=== PATIENT | female | born 1935 | race Caucasian/White ===

== ENCOUNTER 2017-07-04 09:50 | Inpatient (IN) ==
[2017-07-04] MEDS ORDERED: Promethazine/Codeine Oral Sryup 5 ML UDC PO ONE (10:08)
--- NOTE | 2017-07-04 10:11 | Emergency Department Note ---
Disposition Clinical Impression: Pneumonia Qualifiers: Pneumonia type: due to unspecified organism Laterality: bilateral Lung location : unspecified part of lung Qualified Code(s): J18.9 - Pneumonia, unspecified organism Disposition: Admitted As Inpatient Condition: Fair Forms: ED Satisfaction Letter URI/Sore Throat HPI - General Chief Complaint: ED Upper Respiratory Infection Stated Complaint: Cough- productive x 3 days Time Seen by Provider: 07/04/17 09:53 Source: patient, family, EMS Mode of arrival: EMS Limitations: no limitations Nursing Notes Reviewed: Yes Vital Signs Reviewed: Yes - History of Present Illness HPI Narrative: Patient presents to the ED via EMS with complaint of cough. States she has had a cough for over a week or more that has now become productive with yellow and brown sputum. She has also had a sore throat and some congestion. Denies any sneezing. Reports she will have shortness of breath during and after her coughing spells. No chest pain. No fever or chills. No abdominal pain. States she was nauseous at one point but never vomited and is not currently nauseous. No diarrhea or constipation. No urinary symptoms. No leg swelling. No orthopnea or PND. No recent travel or sick contacts. Daughter states she saw her PCP, Dr. White about a week and half ago and was prescribed a Z-Homero. She saw Dr. White again yesterday and was prescribed dextromethorphan cough syrup and a prednisone taper. EMS reports patient was 91-92% on room air and improved to the high 90s after 1 albuterol treatment en route. Patient has never been a smoker and has no chronic respiratory problems. She does have a history of hypertension, CAD, GERD and CLL. Daughter states she has had pneumonia several times in the past. - Related Data Home Medications Medication Instructions Recorded Confirmed Aspirin 81 mg PO DAILY 09/24/15 07/04/17 FLUoxetine HCl [Prozac] 40 mg PO DAILY 09/24/15 07/04/17 Furosemide [Lasix] 40 mg PO BID 09/24/15 07/04/17 Lisinopril [Zestril] 2.5 mg PO DAILY 09/24/15 07/04/17 Metoprolol [Lopressor] 12.5 mg PO BID 09/24/15 07/04/17 Nitroglycerin [Nitrostat] 0.4 mg SL PRN PRN 09/24/15 07/04/17 Omeprazole [PriLOSEC] 20 mg PO DAILY 09/24/15 07/04/17 Pravastatin Sodium [Pravachol] 20 mg PO DAILY 09/24/15 07/04/17 Ferrous Sulfate [Iron] 325 mg PO DAILY 01/23/16 07/04/17 GuaiFENesin/Dextromethorphan 5 - 10 ml PO Q4-6H PRN 07/04/17 07/04/17 [Robafen Dm Cgh-Chest Kobe Syrp] Tramadol HCl [Ultram] 50 mg PO HS 07/04/17 07/04/17 predniSONE [PredniSONE] 20 mg PO DAILY 07/04/17 07/04/17 Allergies Allergy/AdvReac Type Severity Reaction Status Date / Time Penicillins [PCN] Allergy Hives Verified 09/24/15 16:26 Sulfa (Sulfonamide Allergy Hives Verified 09/24/15 16:26 Antibiotics) Constitutional: Denies: fever, chills, weakness, weight change Eyes: Denies: eye pain, eye discharge, vision change ENT ED: Reports: congestion. Denies: ear pain, throat pain, dental pain, hearing loss, epistaxis, dysphagia Cardiovascular: Denies: chest pain, palpitations, dyspnea on exertion, edema, syncope Respiratory: Reports: cough, dyspnea, sputum production. Denies: wheezes, hemoptysis, stridor Gastrointestinal: Denies: abdominal pain, nausea, vomiting, diarrhea, constipation, hematemesis, melena, hematochezia Genitourinary: Denies: dysuria, frequency, hematuria, discharge Musculoskeletal: Denies: back pain, neck pain, arthralgia, myalgia Integumentary: Denies: rash, abrasion, lesions Neurological: Denies: headache, weakness, numbness, paresthesias, confusion, abnormal gait, vertigo Psychiatric: Denies: anxiety, depression, suicidal thoughts, homicidal thoughts , auditory hallucinations, visual hallucinations Endocrine: Denies: fatigue Hematological/Lymphatic: Denies: easy bleeding, easy bruising Allergic/Immunologic: Denies: facial swelling, urticaria URI PMH - Past Medical History Medical history: Reports: CHF, coronary artery disease, GERD, hyperlipidemia, hypertension, malignancy, osteoporosis, TIA, other Surgical history: Reports: coronary bypass (CABG) Psychiatric history: Reports: anxiety, depression [employer]GER [employer]DER history: Reports: no PASSENGER TI[employer] BU[employer]DER history - Social History Smoking Status: Never smoker Alcohol use: Reports: none Drug use: Reports: none Physical Exam - General Limitations: no limitations General appearance: alert, in no apparent distress, anxious (during coughing spells) - Head Head exam: atraumatic, normocephalic, normal inspection - Eye Eye exam: Present: normal appearance, PERRL, EOMI - ENT ENT exam: normal exam, normal oropharynx, mucous membranes moist - Neck Neck exam: Present: normal inspection, full ROM, trachea midline. Absent: lymphadenopathy - Chest Chest inspection: Present: normal inspection, symmetric chest wall rise - Respiratory Respiratory exam: Present: normal lung sounds bilaterally. Absent: respiratory distress, wheezes, stridor - Cardiovascular Cardiovascular exam: Present: regular rate, normal rhythm, normal heart sounds - Abdominal Exam Abdominal exam: Present: soft, Non-Tender, normal bowel sounds. Absent: tenderness, distention, guarding, rebound, rigidity - Extremities Exam Extremities exam: Present: normal inspection, full ROM. Absent: tenderness, pedal edema - Back Exam Back exam: Present: normal inspection, full ROM. Absent: tenderness, CVA tenderness (R), CVA tenderness (L) - Neurological Exam Neurological exam: Present: alert, oriented X3 - Psychiatric Psychiatric exam: Present: normal affect, normal mood - Skin Skin exam: Present: warm, dry, intact, normal color Course Course Narrative: Patient presents to the ED with 1-2 weeks of cough that is now productive with bronchospasm and shortness of breath during coughing spells. She is afebrile and hemodynamically stable on arrival with room air oxygen saturations in the mid 90s. She is having persistent coughing spells since arrival with some resultant anxiety. Lungs are clear to auscultation however. Will perform chest x-ray to rule out pneumonia versus bronchitis. Will give a dose of cough syrup as well as check routine labs to look for any signs of infection or other abnormalities. - Reevaluation(s) Reevaluation #1: Chest x-ray shows perihilar opacities concerning for pneumonia as well as a small effusion. Laboratory studies show a significant increase in her leukocytosis from her elevated baseline that is due to her CLL. She also has increase in both her lymphocytes and neutrophils. Potassium is slightly low at 3.2, likely due to her use of Lasix. We will give oral supplementation. Remaining electrolytes are within normal limits. Troponin is normal. BNP is elevated but she has no signs of overt pulmonary edema. Given the developing pneumonia despite recent outpatient antibiotics and steroids with worsening leukocytosis and bronchospasm patient would benefit from inpatient treatment for her pneumonia. Discussed all test results with patient and her daughter and they are in agreement. I spoke to patient's PCP, Dr. White who has agreed to admit the patient. Will start IV antibiotics after obtaining blood cultures and continue with steroids and nebulizer treatments. We will also check a lactic acid although I have low suspicion for sepsis given lack of fever, hypotension or tachycardia. Vital Signs Temperature 97.4 F L 07/04/17 10:02 Pulse Rate 72 07/04/17 10:02 Respiratory Rate 16 07/04/17 10:02 Blood Pressure 112/67 07/04/17 10:02 O2 Sat by Pulse Oximetry 96 07/04/17 10:02 Temperature 97.4 F L 07/04/17 10:02 Pulse Rate 72 07/04/17 10:02 Respiratory Rate 16 07/04/17 10:02 Blood Pressure 112/67 07/04/17 10:02 O2 Sat by Pulse Oximetry 96 07/04/17 10:02 Oxygen Delivery Oxygen Delivery Room Air Upper Respiratory Infection - Differential Diagnosis Differential Diagnosis: Likely: upper respiratory infection, other viral infection, bronchitis, pneumonia - Medical Records Medical records reviewed: Yes I reviewed the patient's medical records. - Lab Data Lab results reviewed: Yes I reviewed the patient's lab results. Result diagrams: 07/04/17 10:13 07/04/17 10:13 Lab Results 07/04/17 07/04/17 07/04/17 Range/Units 10:13 10:13 10:13 WBC 58.0 H* (4.3-11.1) K/mcL RBC 3.49 L (3.82-4.97) M/mcL Hgb 10.2 L (11.5-15.4) g/dL Hct 31.6 L (35.3-44.9) % MCV 90.5 (83.0-100.0) fL MCH 29.2 (28.0-33.3) pg MCHC 32.3 (31.6-35.5) g/dL RDW 14.1 (11.5-14.5) % Plt Count 259 (140-400) K/mcL MPV 8.0 L (9.4-12.4) fL Immature Gran % 0.6 (0-4) % Seg Neutrophils % 16.1 % Lymphocytes % 79.5 % Monocytes % 3.7 % Eosinophils % 0.1 % Basophils % 0.0 % Neutrophils # 9.3 H (1.6-8.9) K/mcL Lymphocytes # 46.1 H (0.6-4.6) K/mcL Monocytes # 2.2 H (0.0-1.3) K/mcL Eosinophils # 0.1 (0.0-0.6) K/mcL Basophils # 0.0 (0.0-0.2) K/mcL Reactive Lymphocytes Present A (Not Present) Sodium 140 (136-145) mEq/L Potassium 3.2 L (3.5-4.5) mEq/L Chloride 105 (98-109) mEq/L Carbon Dioxide 24 (19-29) mEq/L BUN 24 H (7-20) mg/dL Creatinine 0.98 (0.57-1.11) mg/dL Est GFR ( Amer) > 60 (> 60) Est GFR (Non-Af Amer) 54 L (> 60) BUN/Creatinine Ratio 24 (6-26) Glucose 102 H (70-99) mg/dL Calculated Osmolality 294 (280-300) Calcium 9.4 (8.6-10.8) mg/dL Troponin I 0.00 (0-0.03) ng/mL B-Natriuretic Peptide (0-100) pg/mL 07/04/17 Range/Units 10:13 WBC (4.3-11.1) K/mcL RBC (3.82-4.97) M/mcL Hgb (11.5-15.4) g/dL Hct (35.3-44.9) % MCV (83.0-100.0) fL MCH (28.0-33.3) pg MCHC (31.6-35.5) g/dL RDW (11.5-14.5) % Plt Count (140-400) K/mcL MPV (9.4-12.4) fL Immature Gran % (0-4) % Seg Neutrophils % % Lymphocytes % % Monocytes % % Eosinophils % % Basophils % % Neutrophils # (1.6-8.9) K/mcL Lymphocytes # (0.6-4.6) K/mcL Monocytes # (0.0-1.3) K/mcL Eosinophils # (0.0-0.6) K/mcL Basophils # (0.0-0.2) K/mcL Reactive Lymphocytes (Not Present) Sodium (136-145) mEq/L Potassium (3.5-4.5) mEq/L Chloride (98-109) mEq/L Carbon Dioxide (19-29) mEq/L BUN (7-20) mg/dL Creatinine (0.57-1.11) mg/dL Est GFR ( Amer) (> 60) Est GFR (Non-Af Amer) (> 60) BUN/Creatinine Ratio (6-26) Glucose (70-99) mg/dL Calculated Osmolality (280-300) Calcium (8.6-10.8) mg/dL Troponin I (0-0.03) ng/mL B-Natriuretic Peptide 1001 H (0-100) pg/mL - Radiology Data Radiology results reviewed: Yes I reviewed the patient's radiology results. ITS Impressions Chest X-Ray 07/04/17 10:06 IMPRESSION: Patchy bilateral parahilar airspace disease and suspected small pleural effusion. Primary consideration is pneumonia. Chronic pleural blunting and parenchymal scarring is superimposed. D/ / Sami Cortez MD / Sami Cortez MD Interpreting Provider: Sami Cortez MD - EKG Data EKG attestation: Yes I reviewed and interpreted this EKG. EKG shows normal: sinus rhythm Rate: normal Rhythm: NSR Interpretation: no acute changes
[2017-07-04 10:23] LABS: Eosinophils % 0.1 %; Hematocrit 31.6 % (35.3-44.9); Hemoglobin 10.2 g/dL (11.5-15.4); Immature Granulocytes % 0.6 % (0-4); Lymphocytes # 46.1 K/mcL (0.6-4.6); Lymphocytes % 79.5 %; Mean Corpuscular HGB Conc 32.3 g/dL (31.6-35.5); Mean Corpuscular Hemoglobin 29.2 pg (28.0-33.3); Mean Corpuscular Volume 90.5 fL (83.0-100.0); Monocytes # 2.2 K/mcL (0.0-1.3); Monocytes % 3.7 %; Platelet Count 259 K/mcL (140-400); Red Blood Count 3.49 M/mcL (3.82-4.97); Red Cell Distribution Width 14.1 % (11.5-14.5); Segmented Neutrophils % 16.1 %
[2017-07-04 10:30] LABS: Eosinophils # 0.1 K/mcL (0.0-0.6); Neutrophils # 9.3 K/mcL (1.6-8.9)
[2017-07-04 10:39] LABS: BUN/Creatinine Ratio 24 (6-26); Blood Urea Nitrogen 24 mg/dL (7-20); Calcium 9.4 mg/dL (8.6-10.8); Carbon Dioxide 24 mEq/L (19-29); Chloride 105 mEq/L (98-109); Glucose 102 mg/dL (70-99); Osmolality,Calculated 294 (280-300); Potassium 3.2 mEq/L (3.5-4.5); Sodium 140 mEq/L (136-145); eGFR For African Americans > 60 (> 60); eGFR For Non-African Americans 54 (> 60)
[2017-07-04 10:50] LABS: Reactive Lymphocytes Present (Not Present)
[2017-07-04] MEDS ORDERED: MethylPREDNISolone 40 MG/ML VIAL IVP ONE (11:06)
[2017-07-04] MEDS ORDERED: Levofloxacin 750 MG/150 ML 750 MG/150 ML BAG IVPB ONE (11:06)
[2017-07-04] MEDS ORDERED: Acetaminophen 325 MG TABLET PO PRN ×2 (11:14→14:03)
[2017-07-04] MEDS ORDERED: Naloxone 0.4 MG/ML INJ IVP PRN ×2 (11:14→14:03)
[2017-07-04] MEDS ORDERED: Ipratropium/Albuterol Neb 3 ML IH PRN ×2 (11:19→16:00)
--- NOTE | 2017-07-04 13:43 | Internal Med History&Physical ---
Date of Encounter: 07/04/17 Time of Encounter: 13:38 Assessment and Plan (1) Pneumonia Current visit: Yes Status: Acute Patient has pneumonia clinically and radiographically and she has failed outpatient treatment with 2 office visits, treatment with Zithromax, and required ER visit because of continued cough, bronchospasm and weakness. She will be admitted. IV Levaquin. Nebulizer treatments when necessary. Cultures were done in the ER. Oxygen when necessary. Currently there is no sputum for culture. Qualifiers: Pneumonia type: due to unspecified organism Laterality: bilateral Lung location: unspecified part of lung Qualified Code(s): J18.9 - Pneumonia, unspecified organism (2) Chronic lymphocytic leukemia Current visit: Yes Status: Chronic Patient's chronic lymphocytic leukemia, she has had elevation in her white blood cell count over the past 10 days. She has had increased neutrophil production. She still immunocompromised because of her CLL. Inpatient management of her pneumonia having failed outpatient treatment. (3) Hypokalemia Current visit: Yes Status: Acute Hypokalemia in the ER. Was given potassium supplement. Follow-up will be ordered. (4) Anemia Current visit: Yes Status: Chronic Chronic anemia, likely due to her CLL. We will continue to follow. Qualifiers: Anemia type: unspecified type Qualified Code(s): D64.9 - Anemia, unspecified (5) Hx of CABG Current visit: Yes Status: Acute History of CAD and CABG. She has had no angina or CHF since that time. Currently no cardiac symptoms. (6) Osteoporosis Current visit: Yes Status: Chronic Chronic history of osteoporosis. No acute fracture noted. Qualifiers: Osteoporosis type: age-related Presence of current pathological fracture: without current pathological fracture Qualified Code(s): M81.0 - Age-related osteoporosis without current pathological fracture (7) Depression Current visit: Yes Status: Chronic She has chronic dementia with mild cognitive impairment and anxiety as well. She is currently taking Prozac. We will continue the same for now. 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 She gets frustrated when she cannot remember something. She is a bit more anxious with her infection. We will monitor. She will be at higher risk for ing. (9) DVT prophylaxis Current visit: Yes Status: Acute Due to her multiple risk factors for DVT we will place her on Lovenox. Internal Medicine - H&P: HPI Chief complaint: "I cannot stop coughing" Admitted From: Emergency Dept Plans for Post Hospital Care: Home History of present illness: Ms. Vega is a 81 year old female with known history of CLL, CAD and CABG, osteoporosis, remote history of congestive heart failure is admitted via the ER with history of continued coughing with severe bronchospasm. Patient was seen in the office on 06/22/17 with cough and congestion and conjunctivitis. She was placed on Zithromax and eyedrops. She had a negative chest x-ray for an infiltrate. She was seen in the office one day prior to admission that she still felt ill with persistent cough. She had difficulty sleeping at night because of coughing. She said her sputum production was gone . Her cough is dry. She had not been taking any cough syrup. Her examination was unchanged from before, lungs were clear and in no obvious distress. She was given cough syrup with dextromethorphan. She had incidental complaint of frequency of urination and urine testing with culture was still pending. Apparently she got worse through the night. Coughing was unrelenting. She was coughing to the point where she was getting short of breath. She now has yellow sputum production. She can walk from one room to the next, but if she gets coughing that she gets short of breath. She currently has no urinary symptoms. She denies a cardiac type chest pain. No syncopal episode. No falling episode. In the ER she was found to have her white blood cell count more elevated, chest x-ray consistent with pneumonia with some pleural effusion, severe coughing with bronchospasm which improved with nebulizer treatment and oxygen saturation low for her. Having failed outpatient treatment twice and needing to come to the ER and having now positive chest x-ray findings and failed outpatient treatment I recommend that she begin admitted to the hospital. Risk factors include her age, CLL, frailty. Past Med Surg Social Fam HX - Past Medical History Medical history: CHF (She had CHF in remote past prior to her CABG.), coronary artery disease (In remote past and status post CABG. No ongoing CHF or angina.) , dementia (Mild cognitive impairment, still lives alone at home. Usually maintains her own ADLs without problem.), GERD, hyperlipidemia, hypertension, malignancy (Chronic lymphocytic leukemia and sees ), osteoporosis, TIA Psychiatric history: anxiety, depression - Past Surgical History Surgical History: cholecystectomy, coronary bypass (CABG) - Social History Smoking Status: Never smoker Smokeless Tobacco Status: No Alcohol use: none Drug use: none Occupational status: retired Current living situation: Home - Independent Activity Level: Independent ambulation Recent Out of Country Travel Within the Last 8 Weeks: No Exposure or Possible Exposure to Illness During Travel: No - Family History Mother Living Status: Age at : 95 Cause of : Heart disease, dementia Hx Family Cardiac Disorders: Yes Father Living Status: Age at : 80 Cause of : Heart disease Son Living Status: Still Living Hx Family Cardiac Disorders: Yes (Hypertension) Brother Hx Family Cancer: Yes (Lung cancer) Internal Medicine - H&P: Meds Aspirin 81 mg PO DAILY 09/24/15 [History] FLUoxetine HCl [Prozac] 40 mg PO DAILY 09/24/15 [History] Furosemide [Lasix] 40 mg PO BID 09/24/15 [History] Lisinopril [Zestril] 2.5 mg PO DAILY 09/24/15 [History] Metoprolol [Lopressor] 12.5 mg PO BID 09/24/15 [History] Nitroglycerin [Nitrostat] 0.4 mg SL PRN PRN 09/24/15 [History] Omeprazole [PriLOSEC] 20 mg PO DAILY 09/24/15 [History] Pravastatin Sodium [Pravachol] 20 mg PO DAILY 09/24/15 [History] Ferrous Sulfate [Iron] 325 mg PO DAILY 01/23/16 [History] GuaiFENesin/Dextromethorphan [Robafen Dm Cgh-Chest Kobe Syrp] 5 - 10 ml PO Q4- 6H PRN 07/04/17 [History] Tramadol HCl [Ultram] 50 mg PO HS PRN 07/04/17 [History] predniSONE [PredniSONE] 20 mg PO DAILY 07/04/17 [History] 3 Allergy/AdvReac Type Severity Reaction Status Date / Time Penicillins [PCN] Allergy Hives Verified 09/24/15 16:26 Sulfa (Sulfonamide Allergy Hives Verified 09/24/15 16:26 Antibiotics) - Constitutional Constitutional: chills (She said she had chills once.), fatigue, malaise, no fever(s), no falls - EENT Eyes: no change in vision Ears: no ear discharge, no ear pain Nose, mouth and throat: no dry mouth, no neck pain, no sinus pressure, no sore throat - Cardiovascular Cardiovascular ROS IM: dyspnea, dyspnea on exertion, no chest pain, no irregular heart rhythm, no orthopnea, no palpitations - Respiratory Respiratory: cough, dyspnea, chest congestion, change in phlegm color, pain with cough (Complained of chest wall pain when she coughs hard.) - Gastrointestinal Gastrointestinal: no change in bowel habits, no constipation, no nausea, no vomiting - Genitourinary Genitourinary: no difficulty voiding, no urinary incontinence, no urinary urgency Menstruation: post menopausal - Musculoskeletal Musculoskeletal ROS IM: no back pain, no neck pain - Integumentary Integumentary IM: no rash - Neurological Neurological ROS: memory loss (She admits that she cannot remember things as well. This is not a new problem.), no focal weakness, no frequent falls - Psychiatric Psychiatric: anxiety (She is easily anxious if she cannot remember something or explain something.), difficulty concentrating (It is hard for her to remember certain things and this frustrates her.) - Constitutional Vitals: Temp Pulse Resp BP Pulse Ox 98.8 F 70 18 122/59 94 07/04/17 12:45 07/04/17 12:45 07/04/17 12:45 07/04/17 12:45 07/04/17 12:45 General appearance: Present: cachectic, mild distress (She is anxious, sometimes dyspneic.), A&O X 3, pleasant - Head Head exam: Present: atraumatic - Eye Eye exam: Present: PERRL. Absent: conjunctival injection, scleral icterus - ENT ENT exam: Present: mucous membranes moist, TM's normal bilaterally - Neck Neck exam general surgery: Absent: lymphadenopathy, tenderness, nuchal rigidity , thyromegaly - Respiratory Additional comments: Diminished breath sounds throughout. Localizing crackles and diminished breath sounds to the right mid lung field. Faint scattered crackles intermittently heard throughout - Cardiovascular Cardiovascular exam: Present: RRR, +S1, +S2 - GI/Abdominal GI/Abdominal exam: Present: soft, no peritoneal signs. Absent: guarding, mass, pulsatile mass, tenderness - Extremities Exam Extremities exam: Present: warm. Absent: calf tenderness, pedal edema, tenderness - Back Exam Back exam: Absent: vertebral tenderness - Neurological Exam Neurological exam: Present: alert, CN II-XII intact, oriented X3, no focal deficits - Psychiatric Psychiatric exam: Present: anxious Internal Med - H&P Results - Labs CBC & Chem 7: 07/04/17 10:13 07/04/17 10:13 Labs: Elevated white blood cell count from her CLL with recent exacerbation. Mild hypokalemia. Chronic anemia likely from CLL. - Diagnostic Studies Chest x-ray Status: image reviewed by me Additional comments: Bilateral infiltrates, right worse the left. Pleural effusion in the right median fissure. - VTE Reasons for not Prescribing Prophylaxis: Treatment not Indicated - Low risk for VTE
[2017-07-04] MEDS ORDERED: Nitroglycerin 0.4 MG TAB.SUBL SL PRN (14:03)
[2017-07-04] MEDS: FLUoxetine 20 MG CAPSULE PO SCH (14:30)
[2017-07-04] MEDS: Aspirin 81 MG TAB.CHEW PO SCH (14:30)
[2017-07-04] MEDS: traMADol 50 MG TABLET PO SCH (19:05)
[2017-07-04] MEDS: Furosemide 40 MG TABLET PO SCH (19:05)
[2017-07-05] MEDS: *HR* Enoxaparin 30 MG/0.3 ML SYRINGE SQ SCH (05:55)
[2017-07-05 05:58] LABS: Hematocrit 29.4 % (35.3-44.9); Hemoglobin 9.2 g/dL (11.5-15.4); Immature Granulocytes % 0.9 % (0-4); Lymphocytes # 42.3 K/mcL (0.6-4.6); Lymphocytes % 79.4 %; Mean Corpuscular HGB Conc 31.3 g/dL (31.6-35.5); Mean Corpuscular Hemoglobin 28.9 pg (28.0-33.3); Mean Corpuscular Volume 92.5 fL (83.0-100.0); Mean Platelet Volume 8.1 fL (9.4-12.4); Monocytes # 1.6 K/mcL (0.0-1.3); Neutrophils # 8.9 K/mcL (1.6-8.9); Platelet Count 237 K/mcL (140-400); Red Blood Count 3.18 M/mcL (3.82-4.97); Red Cell Distribution Width 14.2 % (11.5-14.5); Segmented Neutrophils % 16.7 %
[2017-07-05 06:10] LABS: BUN/Creatinine Ratio 26 (6-26); Blood Urea Nitrogen 26 mg/dL (7-20); Calcium 9.1 mg/dL (8.6-10.8); Carbon Dioxide 24 mEq/L (19-29); Chloride 109 mEq/L (98-109); Glucose 105 mg/dL (70-99); Osmolality,Calculated 303 (280-300); Potassium 4.4 mEq/L (3.5-4.5); Sodium 144 mEq/L (136-145); eGFR For African Americans > 60 (> 60); eGFR For Non-African Americans 52 (> 60)
[2017-07-05 06:27] LABS: Platelet Estimate Normal (Normal); Reactive Lymphocytes Present (Not Present)
[2017-07-05] MEDS: Furosemide 40 MG TABLET PO SCH ×2 (08:20→15:51)
[2017-07-05] MEDS: FLUoxetine 20 MG CAPSULE PO SCH (08:21)
[2017-07-05] MEDS: Aspirin 81 MG TAB.CHEW PO SCH (08:21)
--- NOTE | 2017-07-05 14:00 | Internal Med Progress Note ---
Date of Encounter: 07/05/17 Time of Encounter: 13:52 - Assessment and plan (1) Pneumonia Current Visit: Yes Status: Acute Assessment and plan: Patient is showing improvement. She did have a choking episode this morning trying to clear thick sputum. Continue with the IV antibiotics. Sputum culture still pending. Qualifiers: Pneumonia type: due to unspecified organism Laterality: bilateral Lung location: unspecified part of lung Qualified Code(s): J18.9 - Pneumonia, unspecified organism (2) Chronic lymphocytic leukemia Current Visit: Yes Status: Chronic Assessment and plan: White blood cell count is elevated as expected. Her CLL makes her immunocompromised. Her hemoglobin did drop a gram and we will follow. No obvious hemorrhage/bleeding site at this time. (3) Hypokalemia Current Visit: Yes Status: Acute Assessment and plan: Hypokalemia has resolved. Will follow. (4) Anemia Current Visit: Yes Status: Chronic Assessment and plan: Her hemoglobin dropped a gram. We will monitor. No obvious hemorrhage. 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 She did have elevated BNP on admission which is improved. No clinical signs of CHF. (6) Osteoporosis Current Visit: Yes Status: Chronic Qualifiers: Osteoporosis type: age-related Presence of current pathological fracture: without current pathological fracture Qualified Code(s): M81.0 - Age-related osteoporosis without current pathological fracture (7) Depression Current Visit: Yes Status: Chronic Qualifiers: Depression Type: major depressive disorder Major depression recurrence: recurrent Active/Remission status: currently active Major depression episode severity: mild Qualified Code(s): 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, recurrent, mild (8) Mild cognitive impairment Current Visit: Yes Status: Chronic Assessment and plan: She appears to be at her baseline. She is sitting up reading the Bible. She is less anxious today. (9) DVT prophylaxis Current Visit: Yes Status: Acute - Subjective Interval history: She thinks she is feeling better. She denies any chest pain. She denies any significant sputum production except this morning she had a choking episode trying to get up some thick sputum. She was able to get it up with the assistance of the nursing staff, suction is available for prn use. She has not had any further episodes. She has been up to the toilet. She is not requiring any oxygen now. - Constitutional Vitals: Temp Pulse Resp BP Pulse Ox 97.8 F 64 18 134/69 94 07/05/17 07:40 07/05/17 12:00 07/05/17 12:00 07/05/17 07:40 07/05/17 12:00 General appearance: Present: cachectic, A&O X 3, pleasant. Absent: mild distress - Respiratory Respiratory exam: Present: decreased breath sounds Additional comments: She has scattered dry rare crackles but does have localization of crackles in the right midlung field heard posteriorly as well as anteriorly. There is no wheezing. No respiratory distress currently. - Cardiovascular Cardiovascular exam: Present: RRR, +S1, +S2. Absent: systolic murmur - GI/Abdominal GI/Abdominal exam: Present: soft, no peritoneal signs. Absent: tenderness - Extremities Exam Extremities exam: Absent: calf tenderness, pedal edema, tenderness Internal Medicine: Result - Labs CBC & Chem 7: 07/05/17 05:35 07/05/17 05:35 Labs: Short CBC 07/05/17 Range/Units 05:35 WBC 53.3 H* (4.3-11.1) K/mcL Hgb 9.2 L (11.5-15.4) g/dL Hct 29.4 L (35.3-44.9) % Plt Count 237 (140-400) K/mcL Neutrophils # 8.9 (1.6-8.9) K/mcL BMP 07/05/17 05:35 Sodium 144 Potassium 4.4 D Chloride 109 Carbon Dioxide 24 BUN 26 H Creatinine 1.01 Glucose 105 H Calcium 9.1 White blood cell count is still elevated, she has CLL. Her hemoglobin dropped a gram. The rest of her labs were reviewed. Sputum culture is still pending. - VTE Reasons for not Prescribing Prophylaxis: Treatment not Indicated - Low risk for VTE Consult Discharge Plan - Plan Referrals: Larry White MD [Primary Care Provider] -
[2017-07-05] MEDS: traMADol 50 MG TABLET PO SCH (22:19)
[2017-07-06] MEDS: *HR* Enoxaparin 30 MG/0.3 ML SYRINGE SQ SCH (05:24)
[2017-07-06 05:46] LABS: Eosinophils # 0.2 K/mcL (0.0-0.6); Eosinophils % 0.3 %; Hematocrit 30.9 % (35.3-44.9); Hemoglobin 9.9 g/dL (11.5-15.4); Immature Granulocytes % 0.4 % (0-4); Lymphocytes # 59.1 K/mcL (0.6-4.6); Lymphocytes % 89.1 %; Mean Corpuscular Hemoglobin 29.5 pg (28.0-33.3); Mean Platelet Volume 7.9 fL (9.4-12.4); Monocytes # 1.9 K/mcL (0.0-1.3); Monocytes % 2.8 %; Neutrophils # 4.9 K/mcL (1.6-8.9); Platelet Count 263 K/mcL (140-400); Red Blood Count 3.36 M/mcL (3.82-4.97); Red Cell Distribution Width 14.3 % (11.5-14.5); Segmented Neutrophils % 7.4 %
[2017-07-06 05:56] LABS: Calcium 8.8 mg/dL (8.6-10.8)
[2017-07-06 06:26] LABS: Platelet Estimate Normal (Normal); Smudge Cells Present (Not Present)
[2017-07-06] MEDS: Furosemide 40 MG TABLET PO SCH ×2 (08:31→17:43)
[2017-07-06] MEDS: Aspirin 81 MG TAB.CHEW PO SCH (08:31)
[2017-07-06] MEDS: FLUoxetine 20 MG CAPSULE PO SCH (08:31)
[2017-07-06] MEDS: Levofloxacin 750 MG/150 ML 750 MG/150 ML BAG IVPB SCH (12:41)
--- NOTE | 2017-07-06 12:54 | Internal Med Progress Note ---
Date of Encounter: 07/06/17 Time of Encounter: 12:49 - Assessment and plan (1) Pneumonia Current Visit: Yes Status: Acute Assessment and plan: Clinically and symptomatically she is improving from her pneumonia. Continue the same treatment. We will try to increase her activity level within the limits of her stamina. Sputum was not appropriate for culture. White blood cell count markedly elevated, she has CLL. Qualifiers: Pneumonia type: due to unspecified organism Laterality: bilateral Lung location: unspecified part of lung Qualified Code(s): J18.9 - Pneumonia, unspecified organism (2) Chronic lymphocytic leukemia Current Visit: Yes Status: Chronic Assessment and plan: White blood cell count is elevated further to 66,000. Hemoglobin has improved (3) Physical deconditioning Current Visit: Yes Status: Acute Assessment and plan: She is extremely weak and fatigues easily. Even before her admission she was having weakness and actually started outpatient physical therapy. Currently she is not able to maintain her ADLs. We will add physical therapy and occupational therapy. We will try to increase her activity level to the limits of her endurance. She will be a good candidate for a swing bed. (4) Hypokalemia Current Visit: Yes Status: Resolved Assessment and plan: Hypokalemia on admission resolved. We will continue to follow as we increased her Lasix to twice a day. (5) Anemia Current Visit: Yes Status: Chronic Assessment and plan: Her chronic anemia had a dip yesterday and is now improved today. No signs of bleeding. Qualifiers: Anemia type: unspecified type Qualified Code(s): D64.9 - Anemia, unspecified (6) Hx of CABG Current Visit: Yes Status: Chronic Assessment and plan: No angina. Clinically not having CHF. She does have some pleural effusion on chest x-ray as well as pulmonary vascular congestion. This may all be due to her pneumonia as well. (7) Osteoporosis Current Visit: Yes Status: Chronic Qualifiers: Osteoporosis type: age-related Presence of current pathological fracture: without current pathological fracture Qualified Code(s): M81.0 - Age-related osteoporosis without current pathological fracture (8) Depression Current Visit: Yes Status: Chronic Qualifiers: Depression Type: major depressive disorder Major depression recurrence: recurrent Active/Remission status: currently active Major depression episode severity: mild Qualified Code(s): 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, recurrent, mild (9) Mild cognitive impairment Current Visit: Yes Status: Chronic (10) DVT prophylaxis Current Visit: Yes Status: Acute - Subjective Interval history: She says she continues to feel better but still very weak. She is able to sit up in a chair but needs assistance. She does not think she can get to the toilet yet and uses a bedside commode. She has a lot less cough. No further coughing jags or choking episodes. Denies a cardiac type chest pain. Her abdomen was sore likely from coughing, she states it is better today. Moving her bowels and bladder well. She denies any lower extremity pain or swelling. She has been eating fairly well. No fever or chills. - Constitutional Vitals: Temp Pulse Resp BP Pulse Ox 97.4 F L 62 14 111/54 94 07/06/17 11:42 07/06/17 11:42 07/06/17 11:42 07/06/17 11:42 07/06/17 11:42 General appearance: Present: cachectic, A&O X 3, pleasant. Absent: mild distress - Respiratory Additional comments: Decreased breath sounds throughout. Dry scattered crackles. Anteriorly she has more crackles in the mid lung coto. No respiratory distress. No coughing. - Cardiovascular Cardiovascular exam: Present: distant heart sounds, RRR, +S1, +S2. Absent: systolic murmur - GI/Abdominal GI/Abdominal exam: Present: soft. Absent: tenderness - Extremities Exam Extremities exam: Absent: calf tenderness, pedal edema, tenderness - Psychiatric Psychiatric exam: Present: normal affect. Absent: agitated, anxious Internal Medicine: Result - Labs CBC & Chem 7: 07/06/17 04:50 07/06/17 04:50 Labs: Short CBC 07/06/17 Range/Units 04:50 WBC 66.3 H* (4.3-11.1) K/mcL Hgb 9.9 L (11.5-15.4) g/dL Hct 30.9 L (35.3-44.9) % Plt Count 263 (140-400) K/mcL Neutrophils # 4.9 (1.6-8.9) K/mcL BMP 07/06/17 04:50 Sodium 139 Potassium 4.0 Chloride 103 Carbon Dioxide 25 BUN 26 H Creatinine 1.08 Glucose 82 Calcium 8.8 Labs have been reviewed. White blood cell count elevated from her baseline, likely due to CLL as well. Her potassium is now normal. Renal function good. - Impressions Impressions Chest X-Ray 07/06/17 10:00 IMPRESSION: Stable chest. Low lung volumes. Mild pulmonary vascular congestion. Patchy airspace opacities at the bilateral mid to lower lung coto, may be related to atelectasis or pneumonia. Trace bilateral pleural effusions. D/ / Wilbert Hendrix MD / Wilbert Hendrix MD Interpreting Provider: Wilbert Hendrix MD - Diagnostic Studies Chest x-ray Status: image reviewed by me Additional comments: Chest x-ray looks at least stable if not slightly better. Certainly no worse. - VTE Reasons for not Prescribing Prophylaxis: Treatment not Indicated - Low risk for VTE Documentation of Mechanical Device: Graduated compression elastic hosiery Consult Discharge Plan - Plan Referrals: Larry White MD [Primary Care Provider] -
[2017-07-06] MEDS: traMADol 50 MG TABLET PO SCH (20:44)
[2017-07-07 05:30] LABS: Eosinophils # 0.2 K/mcL (0.0-0.6); Eosinophils % 0.3 %; Hematocrit 30.8 % (35.3-44.9); Hemoglobin 9.9 g/dL (11.5-15.4); Immature Granulocytes % 0.4 % (0-4); Lymphocytes # 46.7 K/mcL (0.6-4.6); Lymphocytes % 89.3 %; Mean Corpuscular HGB Conc 32.1 g/dL (31.6-35.5); Mean Corpuscular Hemoglobin 29.1 pg (28.0-33.3); Mean Corpuscular Volume 90.6 fL (83.0-100.0); Mean Platelet Volume 7.7 fL (9.4-12.4); Monocytes # 0.8 K/mcL (0.0-1.3); Monocytes % 1.6 %; Neutrophils # 4.4 K/mcL (1.6-8.9); Platelet Count 231 K/mcL (140-400); Red Cell Distribution Width 14.2 % (11.5-14.5); Segmented Neutrophils % 8.4 %
[2017-07-07 05:33] LABS: Smudge Cells Present (Not Present)
[2017-07-07] MEDS: *HR* Enoxaparin 30 MG/0.3 ML SYRINGE SQ SCH (05:35)
[2017-07-07 05:37] LABS: Calcium 9.2 mg/dL (8.6-10.8); Potassium 4.2 mEq/L (3.5-4.5)
--- NOTE | 2017-07-07 07:17 | Internal Med Progress Note ---
Date of Encounter: 07/07/17 Time of Encounter: 07:12 - Assessment and plan (1) Pneumonia Current Visit: Yes Status: Acute Assessment and plan: Clinically and symptomatically improving from her pneumonia. She has less sputum production now. No fevers. Adequate saturations. She has generalized weakness and we will have PT and OT evaluate her. I recommend swing bed when eligible. Qualifiers: Pneumonia type: due to unspecified organism Laterality: bilateral Lung location: unspecified part of lung Qualified Code(s): J18.9 - Pneumonia, unspecified organism (2) Chronic lymphocytic leukemia Current Visit: Yes Status: Chronic Assessment and plan: Chronic CLL and elevated white blood cell count. This makes her immunocompromised. Continue current medical regimen. Her drop in hemoglobin has stabilized. No active bleeding noted. (3) Physical deconditioning Current Visit: Yes Status: Acute Assessment and plan: Generalized weakness. She had troubles at home and outpatient physical therapy had already been initiated prior to the acute pneumonia and weakness. PT and OT will evaluate her. She should benefit from swing bed. (4) Hypokalemia Current Visit: Yes Status: Resolved Assessment and plan: Resolved (5) Anemia Current Visit: Yes Status: Chronic Assessment and plan: Drop in hemoglobin stabilized. No signs of bleeding. Hemodynamically stable. Qualifiers: Anemia type: unspecified type Qualified Code(s): D64.9 - Anemia, unspecified (6) Hx of CABG Current Visit: Yes Status: Chronic Assessment and plan: No angina or overt CHF. (7) Osteoporosis Current Visit: Yes Status: Chronic Qualifiers: Osteoporosis type: age-related Presence of current pathological fracture: without current pathological fracture Qualified Code(s): M81.0 - Age-related osteoporosis without current pathological fracture (8) Depression Current Visit: Yes Status: Chronic Qualifiers: Depression Type: major depressive disorder Major depression recurrence: recurrent Active/Remission status: currently active Major depression episode severity: mild Qualified Code(s): 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, recurrent, mild (9) Mild cognitive impairment Current Visit: Yes Status: Chronic (10) DVT prophylaxis Current Visit: Yes Status: Acute Assessment and plan: Continue with Lovenox. - Subjective Interval history: Patient thinks she is improving. She said she coughed up a tiny bit of yellow sputum last night, but overall much improved in that way. She denies any significant shortness of breath. She denies any cardiac symptoms. She denies any orthopnea. She walked to the shower, had a shower yesterday and walked back. She said that did not bother her much. She still complains of generalized weakness. She denies any fevers or chills. No more choking episodes. - Constitutional Vitals: Temp Pulse Resp BP Pulse Ox 98.0 F 76 16 111/64 92 07/07/17 03:00 07/07/17 03:00 07/07/17 03:00 07/07/17 03:00 07/07/17 03:00 General appearance: Present: cachectic, A&O X 3, pleasant. Absent: mild distress Exam: She appears weak. It was difficult for her to even sit up in bed. - Respiratory Additional comments: She has diminished breath sounds throughout. Some dry localize crackles to the right anterior mid lung field. Posteriorly scant scattered dry crackles. No respiratory distress. - Cardiovascular Cardiovascular exam: Present: RRR, +S1, +S2. Absent: systolic murmur - GI/Abdominal GI/Abdominal exam: Present: soft. Absent: tenderness - Extremities Exam Extremities exam: Absent: calf tenderness, pedal edema, tenderness Internal Medicine: Result - Labs CBC & Chem 7: 07/07/17 05:00 07/07/17 05:00 Labs: Short CBC 07/07/17 Range/Units 05:00 WBC 52.3 H* (4.3-11.1) K/mcL Hgb 9.9 L (11.5-15.4) g/dL Hct 30.8 L (35.3-44.9) % Plt Count 231 (140-400) K/mcL Neutrophils # 4.4 (1.6-8.9) K/mcL BMP 07/07/17 05:00 Sodium 140 Potassium 4.2 Chloride 102 Carbon Dioxide 27 BUN 26 H Creatinine 1.12 H Glucose 99 Calcium 9.2 Labs have been reviewed. Hemoglobin drop is now stabilized. White blood cell count still elevated from CLL. Creatinine edging up slightly. - Impressions Impressions Chest X-Ray 07/06/17 10:00 IMPRESSION: Stable chest. Low lung volumes. Mild pulmonary vascular congestion. Patchy airspace opacities at the bilateral mid to lower lung coto, may be related to atelectasis or pneumonia. Trace bilateral pleural effusions. D/ / Wilbert Hendrix MD / Wilbert Hendrix MD Interpreting Provider: Wilbert Hendrix MD - VTE Reasons for not Prescribing Prophylaxis: Treatment not Indicated - Low risk for VTE Documentation of Mechanical Device: Graduated compression elastic hosiery Consult Discharge Plan - Plan Referrals: Larry White MD [Primary Care Provider] -
[2017-07-07] MEDS: FLUoxetine 20 MG CAPSULE PO SCH (08:38)
[2017-07-07] MEDS: Aspirin 81 MG TAB.CHEW PO SCH (08:39)
[2017-07-07] MEDS: Furosemide 40 MG TABLET PO SCH ×2 (08:39→17:58)
[2017-07-07] MEDS: traMADol 50 MG TABLET PO SCH (21:05)
[2017-07-08] MEDS: *HR* Enoxaparin 30 MG/0.3 ML SYRINGE SQ SCH (05:22)
[2017-07-08] MEDS: Aspirin 81 MG TAB.CHEW PO SCH (08:24)
[2017-07-08] MEDS: Furosemide 40 MG TABLET PO SCH (08:25)
[2017-07-08] MEDS: FLUoxetine 20 MG CAPSULE PO SCH (08:25)
[2017-07-08 08:56] VITALS: BP 100/73
--- NOTE | 2017-07-08 10:13 | Discharge Summary ---
Date of Encounter: 07/08/17 Time of Encounter: 10:07 - Discharge Diagnosis (1) Pneumonia Priority: Primary Status: Acute Qualifiers: Pneumonia type: due to unspecified organism Laterality: bilateral Lung location: unspecified part of lung Qualified Code(s): J18.9 - Pneumonia, unspecified organism (2) Chronic lymphocytic leukemia Priority: Secondary Status: Chronic (3) Physical deconditioning Priority: Secondary Status: Acute (4) Hypokalemia Priority: Secondary Status: Resolved (5) Anemia Priority: Secondary Status: Chronic Qualifiers: Anemia type: unspecified type Qualified Code(s): D64.9 - Anemia, unspecified (6) Hx of CABG Priority: Secondary Status: Chronic (7) Osteoporosis Priority: Secondary Status: Chronic Qualifiers: Osteoporosis type: age-related Presence of current pathological fracture: without current pathological fracture Qualified Code(s): M81.0 - Age-related osteoporosis without current pathological fracture (8) Depression Priority: Secondary Status: Chronic Qualifiers: Depression Type: major depressive disorder Major depression recurrence: recurrent Active/Remission status: currently active Major depression episode severity: mild Qualified Code(s): 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, recurrent, mild (9) Mild cognitive impairment Priority: Secondary Status: Chronic (10) DVT prophylaxis Priority: Secondary Status: Acute - Discharge Medications Home Medications: Aspirin 81 mg PO DAILY 09/24/15 [History] FLUoxetine HCl [Prozac] 40 mg PO DAILY 09/24/15 [History] Furosemide [Lasix] 40 mg PO BID 09/24/15 [History] Lisinopril [Zestril] 2.5 mg PO DAILY 09/24/15 [History] Metoprolol [Lopressor] 12.5 mg PO BID 09/24/15 [History] Nitroglycerin [Nitrostat] 0.4 mg SL PRN PRN 09/24/15 [History] Omeprazole [PriLOSEC] 20 mg PO DAILY 09/24/15 [History] Pravastatin Sodium [Pravachol] 20 mg PO DAILY 09/24/15 [History] Ferrous Sulfate [Iron] 325 mg PO DAILY 01/23/16 [History] GuaiFENesin/Dextromethorphan [Robafen Dm Cgh-Chest Kobe Syrp] 5 - 10 ml PO Q4- 6H PRN 07/04/17 [History] Tramadol HCl [Ultram] 50 mg PO HS PRN 07/04/17 [History] Acetaminophen [Tylenol] 650 mg PO Q6HR PRN tab 07/08/17 [Rx] Enoxaparin [Lovenox] 30 mg SQ 0600 07/08/17 [Rx] Ipratropium/Albuterol Neb [Duoneb] 3 ml IH [id number] PRN inh 07/08/17 [Rx] Allergies/Adverse Reactions: 3 Allergy/AdvReac Type Severity Reaction Status Date / Time Penicillins [PCN] Allergy Hives Verified 09/24/15 16:26 Sulfa (Sulfonamide Allergy Hives Verified 09/24/15 16:26 Antibiotics) Date of admission: 07/05/17 13:49 Primary care physician: Larry White MD Consults: 07/06/17 13:09 Consult to Occupational Therapy [CONS] Routine Comment: Evaluate, develop and implement POC Reason for Consult: Physical deconditioning secondary to her pneumonia. We will likely need swing bed. Consult to Physical Therapy [CONS] Routine Comment: Evaluate, develop and implement POC Reason for Consult: Physical deconditioning secondary to her pneumonia, likely will need swing bed Discharging clinician: Larry White Anticipated date of discharge: 07/08/17 - Patient Status Disposition: Transfer Hospital Swing Bed Condition: Good Functional capacity at discharge: uses cane/walker Overall status at discharge: patient is not back to baseline - Discharge Instructions Follow Up With: Larry White MD [Primary Care Provider] - - Diet and Activity Activity: as per physical therapy Diet: low fat, low cholesterol Interval History: Last night she slept well. Today she states she is doing well in therapy. She has occasional cough. She has right sided throat pain since having her pneumonia. She denies difficulties with swallowing. She denies a cardiac type chest pain. She denies any dyspnea. Physical therapy thinks that she will benefit from OT and PT for restoring her ADLs and safety for home. She will be transferred to a swing bed today. Hospital course: Ms. Vega is a 81 year old female who has CLL and hypertension. She is admitted to the hospital with pneumonia. Please see that history physical. She is placed on IV Levaquin and nebulizer treatment and has done very well. She continues to progress nicely. However, she has had generalized weakness and difficulty with ADLs and concerned about falling. We plan that she will be transferred to a swing bed for ongoing PT and OT to resume her ADLs so she can go home safely. We will continue the Levaquin intravenously, Lovenox for DVT prophylaxis and her usual medications. Regarding her chronic CLL, her white blood cell count has been chronically elevated. She has chronic anemia. Her count has been relatively stable. No obvious source of bleeding. Hemodynamically she is stable. Regarding her hypertension and she has done well. Her blood pressure is a bit low this morning and we will continue to monitor. She will be transferred to a swing bed today for ongoing Levaquin, nursing care , PT and OT prior to going home. - Time Spent with Patient Total time spent providing and/or coordinating discharge services: - Constitutional Vitals: Temp Pulse Resp BP Pulse Ox 98.1 F 74 16 100/73 94 07/08/17 08:00 07/08/17 08:00 07/08/17 08:00 07/08/17 08:00 07/08/17 08:00 General appearance: Present: cachectic, A&O X 3, pleasant. Absent: mild distress - Respiratory Additional comments: Slight scattered crackles. No respiratory distress. Occasional cough. - Cardiovascular Cardiovascular exam: Present: RRR, +S1, +S2. Absent: systolic murmur - GI/Abdominal GI/Abdominal exam: Present: soft. Absent: tenderness - Extremities Exam Extremities exam: Absent: calf tenderness, pedal edema, tenderness - VTE Reasons for not Prescribing Prophylaxis: Treatment not Indicated - Low risk for VTE Documentation of Mechanical Device: Graduated compression elastic hosiery
--- NOTE | 2017-07-08 11:18 | Electrocardiograph Report ---
[place] [id number] Test Date: 2017-07-04 Pat Name: Jes Vega Department: 2000 Room: 114 Gender: F Route Clerk: : [id number] Requested By: Sonia Steward Order Number: [id number] Reading MD: Monik Gardner Measurements Intervals [place] Rate: 75 P: 44 [place]: 140 QRS: 28 QRSD: 86 T: -2 QT: 404 QTc: 432 Interpretive Statements SINUS RHYTHM POSSIBLE LEFT ATRIAL ENLARGEMENT NONSPECIFIC T-WAVE ABNORMALITY Electronically Signed On 07-08-2017 11:16:46 EDT by Monik Gardner
[2017-07-08] MEDS: Levofloxacin 750 MG/150 ML 750 MG/150 ML BAG IVPB SCH (12:06)
== END 2017-07-08 12:40 | disposition other institution (70) | DRG 194 ==
LOC: INPGRE 09:50 → EMEROOGRE 09:50 → INPGRE 12:19
PROVIDERS: ADMIT Family Medicine; ATTEND Family Medicine

== ENCOUNTER 2017-07-08 12:50 | Inpatient (IN) ==
[2017-07-08] MEDS ORDERED: Ipratropium/Albuterol Neb 3 ML IH PRN (14:23)
[2017-07-08] MEDS ORDERED: Acetaminophen 325 MG TABLET PO PRN (14:23)
[2017-07-08] MEDS ORDERED: Nitroglycerin 0.4 MG TAB.SUBL SL PRN (14:23)
[2017-07-08] MEDS: Levofloxacin 750 MG/150 ML 750 MG/150 ML BAG IVPB SCH (17:24)
[2017-07-08] MEDS: Furosemide 40 MG TABLET PO SCH (17:27)
[2017-07-08] MEDS ORDERED: traMADol 50 MG TABLET PO PRN (21:00)
[2017-07-09] MEDS: *HR* Enoxaparin 30 MG/0.3 ML SYRINGE SQ SCH (05:13)
[2017-07-09] MEDS: Aspirin 81 MG TAB.CHEW PO SCH (08:33)
[2017-07-09] MEDS: FLUoxetine 20 MG CAPSULE PO SCH (08:33)
[2017-07-09] MEDS: Furosemide 40 MG TABLET PO SCH ×2 (08:33→16:36)
--- NOTE | 2017-07-09 10:58 | Internal Med Progress Note ---
Date of Encounter: 07/09/17 Time of Encounter: 10:53 - Assessment and plan (1) Physical deconditioning Current Visit: Yes Status: Acute Assessment and plan: Patient is in a swing bed now because of deconditioning/weakness as she is recuperating from pneumonia. She is advancing nicely. Likely she will be able to be discharged home tomorrow. (2) Pneumonia Current Visit: Yes Status: Acute Assessment and plan: Clinically and symptomatically she is recuperating from her pneumonia. Lungs are markedly improved. Pulmonary status improved. Oxygen saturation is 97% on room air. We will likely go home tomorrow after her last IV dose of Levaquin Qualifiers: Pneumonia type: due to unspecified organism Laterality: bilateral Lung location: unspecified part of lung Qualified Code(s): J18.9 - Pneumonia, unspecified organism (3) Chronic lymphocytic leukemia Current Visit: Yes Status: Chronic Assessment and plan: History of CLL and chronic leukocytosis as well as anemia. We will check her count again tomorrow. (4) Hx of CABG Current Visit: Yes Status: Chronic Assessment and plan: No history of angina or CHF. Continue to monitor. (5) Mild cognitive impairment Current Visit: Yes Status: Chronic Assessment and plan: Overall she is doing well, she seems less depressed and anxious. She is cooperating with therapy. She has been reading her Bible and making plans for home. (6) Anemia Current Visit: Yes Status: Chronic Assessment and plan: Chronic anemia likely secondary to her CLL. It is relatively stable in the 8 g range. Follow-up CBC tomorrow. Qualifiers: Anemia type: unspecified type Qualified Code(s): D64.9 - Anemia, unspecified (7) DVT prophylaxis Current Visit: No Status: Acute - Constitutional Vitals: Temp Pulse Resp BP Pulse Ox 97.9 F 71 16 120/50 95 07/09/17 07:00 07/09/17 07:00 07/09/17 07:00 07/09/17 08:31 07/09/17 07:00 General appearance: Present: A&O X 3, no acute distress, answers questions appropriately - Respiratory Additional comments: Slightly diminished breath sounds throughout but clear. Rare scattered dry crackles. No localization of crackles or rales. - Cardiovascular Cardiovascular exam: Present: RRR, +S1, +S2. Absent: systolic murmur - GI/Abdominal GI/Abdominal exam: Present: soft. Absent: tenderness - Extremities Exam Extremities exam: Absent: calf tenderness, pedal edema, tenderness Consult Discharge Plan - Plan Referrals: Larry White MD [Primary Care Provider] -
[2017-07-10 05:23] LABS: Basophils % 0.1 %; Eosinophils # 0.3 K/mcL (0.0-0.6); Eosinophils % 0.5 %; Hematocrit 31.1 % (35.3-44.9); Hemoglobin 10.1 g/dL (11.5-15.4); Immature Granulocytes % 0.3 % (0-4); Lymphocytes % 89.9 %; Mean Corpuscular HGB Conc 32.5 g/dL (31.6-35.5); Mean Corpuscular Hemoglobin 29.2 pg (28.0-33.3); Mean Corpuscular Volume 89.9 fL (83.0-100.0); Monocytes # 1.2 K/mcL (0.0-1.3); Monocytes % 2.2 %; Neutrophils # 3.7 K/mcL (1.6-8.9); Platelet Count 217 K/mcL (140-400); Red Blood Count 3.46 M/mcL (3.82-4.97)
[2017-07-10 05:29] LABS: Basophils # 0.1 K/mcL (0.0-0.2); Lymphocytes # 47.2 K/mcL (0.6-4.6)
[2017-07-10 05:38] LABS: Platelet Estimate Normal (Normal); Smudge Cells Present (Not Present)
[2017-07-10 05:43] LABS: Calcium 9.4 mg/dL (8.6-10.8); Chol/HDL Ratio 4.8 (0-4.9); Potassium 3.7 mEq/L (3.5-4.5)
[2017-07-10] MEDS: *HR* Enoxaparin 30 MG/0.3 ML SYRINGE SQ SCH (05:48)
--- NOTE | 2017-07-10 07:12 | Discharge Summary ---
Date of Encounter: 07/10/17 Time of Encounter: 07:07 - Discharge Diagnosis (1) Physical deconditioning Priority: Primary Status: Acute Comments: Patient was mentally swing bed following an acute bed admission for pneumonia. She needed continued IV antibiotics and PT and OT to reestablish safe ADLs before going home. She has been through PT and OT and they feel she is safe to be discharged home today. She will finish up her course of IV antibiotics and her examination is back to baseline. She will be seen in the office in follow- up next Thursday. (2) Pneumonia Priority: Secondary Status: Acute Comments: She was admitted to an acute bed on 07/04/17 for pneumonia. She had been in the office a week or 2 earlier with pulmonary symptoms and placed on the antibiotic but had a negative chest x-ray. She still had continued symptoms and was evaluated in the office and subsequently ended up in the ER and had chest x-ray positive for pneumonia. Having failed two outpatient treatments and an ER visit she was admitted to an acute bed and treated for pneumonia. She did not have sputum appropriate for culture. She had been on Zithromax previously so she was changed to Levaquin intravenously. She had some troubles with severe cough and choking with sputum production. That has now all cleared. She has had no fever. She chronically has elevated white blood cell count because of her CLL. She improved symptomatically as well as clinically on examination. Her radiograph was stable or slightly improved. On day of discharge her lung findings were back to baseline with few scattered atelectatic-type crackles throughout. She has had no cough or sputum production now. She is having no fever. She will finished 7 days of IV antibiotics will be sent home today and will follow up next Thursday in the office. Qualifiers: Pneumonia type: due to unspecified organism Laterality: bilateral Lung location: unspecified part of lung Qualified Code(s): J18.9 - Pneumonia, unspecified organism (3) Chronic lymphocytic leukemia Priority: Secondary Status: Chronic Comments: She has CLL and chronic elevated white blood cell count as well as mild anemia. Her hemoglobin did dip a bit during this stay but back to 10.1 range prior to discharge. Overall no acute change in this status. She follows up with Dr. Stroud her oncologist (4) Hx of CABG Priority: Secondary Status: Chronic Comments: She is a chronic history of CAD and status post CABG. She did not have any cardiac type chest pain/angina/[employer] CHF. Her BNP was mildly elevated in the 600 range and she did have mild pleural effusion on her chest x-ray. No indication that she had an ID with this. No change in her cardiac medications were made. (5) Mild cognitive impairment Priority: Secondary Status: Chronic Comments: Chronically she has mild cognitive impairment but still able to live on her own and drive. Prior to coming in she was a bit anxious and confused and not her usual self. I suspect that was due to her pneumonia. Now she is back to her baseline, no longer anxious and frustrated and doing well. (6) Anemia Priority: Secondary Status: Chronic Comments: Chronic anemia since A with her CLL. She did have a drop of hemoglobin of about a gram or so. Prior to discharge her hemoglobin is back up to 10.2. No obvious hemorrhage or bleeding noted. Qualifiers: Anemia type: unspecified type Qualified Code(s): D64.9 - Anemia, unspecified (7) DVT prophylaxis Priority: Secondary Status: Inactive - Discharge Medications Home Medications: Aspirin 81 mg PO DAILY 09/24/15 [History] FLUoxetine HCl [Prozac] 40 mg PO DAILY 09/24/15 [History] Furosemide [Lasix] 40 mg PO BID 09/24/15 [History] Lisinopril [Zestril] 2.5 mg PO DAILY 09/24/15 [History] Metoprolol [Lopressor] 12.5 mg PO BID 09/24/15 [History] Nitroglycerin [Nitrostat] 0.4 mg SL PRN PRN 09/24/15 [History] Omeprazole [PriLOSEC] 20 mg PO DAILY 09/24/15 [History] Pravastatin Sodium [Pravachol] 20 mg PO DAILY 09/24/15 [History] Ferrous Sulfate [Iron] 325 mg PO DAILY 01/23/16 [History] GuaiFENesin/Dextromethorphan [Robafen Dm Cgh-Chest Kobe Syrp] 5 - 10 ml PO Q4- 6H PRN 07/04/17 [History] Tramadol HCl [Ultram] 50 mg PO HS PRN 07/04/17 [History] Acetaminophen [Tylenol] 650 mg PO Q6HR PRN tab 07/08/17 [Rx] Allergies/Adverse Reactions: 3 Allergy/AdvReac Type Severity Reaction Status Date / Time Penicillins [PCN] Allergy Hives Verified 09/24/15 16:26 Sulfa (Sulfonamide Allergy Hives Verified 09/24/15 16:26 Antibiotics) Procedures/tests Complete & Pending: Laboratory Results - last 24 hr 07/10/17 07/10/17 04:40 04:40 WBC 52.5 H* RBC 3.46 L Hgb 10.1 L Hct 31.1 L MCV 89.9 MCH 29.2 MCHC 32.5 RDW 14.0 Plt Count 217 MPV 8.0 L Immature Gran % 0.3 Seg Neutrophils % 7.0 Lymphocytes % 89.9 Monocytes % 2.2 Eosinophils % 0.5 Basophils % 0.1 Neutrophils # 3.7 Lymphocytes # 47.2 H Monocytes # 1.2 Eosinophils # 0.3 Basophils # 0.1 Smudge Cells Present A Platelet Estimate Normal Sodium 139 Potassium 3.7 Chloride 103 Carbon Dioxide 26 BUN 27 H Creatinine 1.16 H Est GFR ( Amer) 54 L Est GFR (Non-Af Amer) 45 L BUN/Creatinine Ratio 23 Glucose 100 H Calculated Osmolality 293 Calcium 9.4 Triglycerides 105 Cholesterol 121 LDL Cholesterol, Calc 75 VLDL Cholesterol, Calc 21 HDL Cholesterol 25 L Cholesterol/HDL Ratio 4.8 Date of admission: 07/08/17 12:57 Primary care physician: Larry White MD Consults: 07/08/17 18:33 OT [Consult to Occupational Therapy] [CONS] Routine Comment: Evaluate, develop and implement POC Reason for Consult: eval and tx 07/08/17 18:34 PT [Consult to Physical Therapy] [CONS] Routine Comment: Evaluate, develop and implement POC Reason for Consult: eval Discharging clinician: Larry White Anticipated date of discharge: 07/10/17 - Patient Status Disposition: Home, Self-Care Condition: Good Functional capacity at discharge: uses cane/walker Overall status at discharge: patient is progressing back to baseline - Discharge Instructions Follow Up With: Larry White MD [Primary Care Provider] - 07/15/17 1:30 pm - Diet and Activity Activity: as per physical therapy, increase activity as tolerated Diet: low salt diet Interval History: Overnight the patient did well. She slept well. No fevers or chills. Positive stable. Oxygen saturations are in the 90s. She feels ready to go home today. Her examination as below. Hospital course: Ms. Vega is a 81 year old female is a patient who has history of CLL and previous CABG. She was admitted to an acute bed nearly a week ago with pneumonia. She was treated with Levaquin. She needed an extended stay for PT and OT and to resume safe ADLs and continue her IV antibiotics. She was transferred to a swing bed for a few days. She has done very well. Her vitals are now stable. Her lung findings show a few dry crackles throughout which is her baseline. She has gone through PT and OT and has done well and safe to be discharged to home today to follow up in the office next week. Please see above diagnoses and hospital course. - Time Spent with Patient Total time spent providing and/or coordinating discharge services: - Constitutional Vitals: Temp Pulse Resp BP Pulse Ox 98.1 F 77 16 104/51 93 07/09/17 19:12 07/09/17 19:12 07/09/17 19:12 07/09/17 19:12 07/09/17 19:12 General appearance: Present: A&O X 3, no acute distress, answers questions appropriately - Respiratory Additional comments: Rare few dry scattered crackles particular the bases. Sounds atelectatic. No orthopnea. Respiratory distress. - Cardiovascular Cardiovascular exam: Present: RRR, +S1, +S2. Absent: systolic murmur - GI/Abdominal GI/Abdominal exam: Present: soft. Absent: tenderness - Extremities Exam Extremities exam: Absent: calf tenderness, pedal edema, tenderness
[2017-07-10 07:15] VITALS: BP 110/58
[2017-07-10] MEDS: Aspirin 81 MG TAB.CHEW PO SCH (08:59)
[2017-07-10] MEDS: Furosemide 40 MG TABLET PO SCH (08:59)
[2017-07-10] MEDS: FLUoxetine 20 MG CAPSULE PO SCH (08:59)
[2017-07-10] MEDS: Levofloxacin 750 MG/150 ML 750 MG/150 ML BAG IVPB SCH (14:26)
== END 2017-07-10 14:20 | disposition home or self-care (01) | DRG 945 ==
LOC: INPGRE 12:57
PROVIDERS: ADMIT Family Medicine; ATTEND Family Medicine

== ENCOUNTER 2018-04-28 15:39 | Inpatient (IN) ==
--- NOTE | 2018-04-28 16:19 | Emergency Department Note ---
Disposition Clinical Impression: Pneumonia, Dehydration Disposition: Transfer Short-Term Hosp Condition: Serious Referrals: Larry White MD [Primary Care Provider] - Forms: ED Satisfaction Letter, Work/School Release Time of Disposition: 17:50 General Adult HPI - General Chief complaint: ED General Medical Stated complaint: General Illness Time Seen by Provider: 04/28/18 16:02 Source: patient Limitations: no limitations Nursing Notes Reviewed: Yes Vital Signs Reviewed: Yes - History of Present Illness HPI Narrative: Patient presents today with CC of: weakness pneumonia Patient describes issue began around after her evaluation in the emergency department for pneumonia and urinary tract infection the patient has felt weak and poorly. She followed up with Dr. Marie in the office today and was found to have a pulse ox of 94%. Dr. Marie evaluated the patient felt she had pneumonia and was not defervesced sitting on Levaquin that was prescribed. Patient's not had any vomiting or diarrhea she is not a fever she has been urinating had 2 bowel movements today. She denies any upper respiratory symptoms she has not had any cough or sputum production. She does not history of anxiety as well as hypertension. Today she ate eggs and sausage and toast Pain Scale: 0 - Related Data Home Medications Medication Instructions Recorded Confirmed FLUoxetine HCl [Prozac] 40 mg PO DAILY 09/24/15 04/28/18 Furosemide [Lasix] 40 mg PO BID 09/24/15 04/28/18 Lisinopril [Zestril] 2.5 mg PO DAILY 09/24/15 04/28/18 Metoprolol [Lopressor] 12.5 mg PO BID 09/24/15 04/28/18 Omeprazole [PriLOSEC] 20 mg PO DAILY 09/24/15 04/28/18 Pravastatin Sodium [Pravachol] 20 mg PO DAILY 09/24/15 04/28/18 Ferrous Sulfate [Iron] 325 mg PO DAILY 01/23/16 04/28/18 Acetaminophen [Tylenol] 325 mg PO Q6HR PRN 04/23/18 04/28/18 Aspirin 81 mg PO DAILY 04/23/18 04/28/18 Calcium Carbonate [Tums] 500 mg PO DAILY 04/23/18 04/28/18 Calcium Carbonate/Vitamin D2 [Ra 1 each PO DAILY 04/23/18 04/28/18 Oyster Shell-Vitamin D Tab] Multivitamin [One Daily Essential] 1 each PO DAILY 04/23/18 04/28/18 Nitroglycerin [Nitrostat] 0.4 mg SL Q5M PRN MDD 3 tab 04/23/18 04/28/18 Previous Rx's Medication Instructions Recorded Albuterol Sulfate [Albuterol 2 puff IH Q6HR PRN #1 inhaler 04/23/18 Inhaler] Levofloxacin [Levaquin] 750 mg PO AD #5 tablet 04/23/18 Allergies Allergy/AdvReac Type Severity Reaction Status Date / Time Penicillins [PCN] Allergy Hives Verified 04/23/18 06:19 Sulfa (Sulfonamide Allergy Hives Verified 04/23/18 06:19 Antibiotics) All systems ED: reviewed and negative except as stated. 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 The patient 's medications, allergies, and medical history was reviewed. Family, Social & Surg histories were reviewed and are not relevant except as noted above in the history of present illness, or below in the respective specific section. I have reviewed and agree with all vital signs synchronously available in EMR at the time of this dictation. Times documented are the time of computer entry, are not necessarily the time the event occurred. At least 10 systems reviewed with patient or surrogate during physical exam and are otherwise negative. Physical EXAM: General ~ Constitutional: Conscious & cooperative , generally healthy appearance Head: NCAT Eyes: Sclera white , conjunctiva clear , PERRL, non-icteric ENT : L Tympanic membrane normal color and landmarks R Tympanic membrane normal color and landmarks Canals are clear without significant drainage , no obstruction or vesicles , pinna and tragus non tender Nose with pink nasal mucosa, nares patent, non tender without bleeding Mouth - mucous membrane moist , pink , no lesions , no trismus Neck - no masses , supple , no cervical spinous process tenderness Pharynx - no exudate , no petechia or obvious lesions , no airway obstruction or stridor Hematologic ~ Lymphatic ~ Immunologic: Lymphadenopathy normal , no petechia , Skin color, nails and pulses unremarkable. Heart ~ Chest: Reg rate , nml Rhythm , nl S1/S2 , no MRG Lungs: Breath sounds equal , clear to auscultation bilaterally , no wheezing, bilat rhonchi , no CVA tenderness Gastrointestinal ~ Abd: Soft & non tender , BS + in 4 quads , No HSM or masses , no peritoneal signs GenitoUrinary: Deferred Musculoskeletal ~ Back ~ Extremities: Warm and w/o clubbing , cyanosis , or edema. No point tenderness , good ROM of major joints Neurologic: Cranial nerves grossly intact, good muscle strength , attention good , cooperative , Alert and oriented x4 Psychiatric: Calm , Insight decreased and mood appropriate , Skin: No rashes , good skin turgor , cap refill 3-4 seconds , warm and dry - General Limitations: no limitations General appearance: alert, in no apparent distress Course - Reevaluation(s) Reevaluation #1: Patient was reevaluated and I reviewed all the lab work with her she seems to be doing relatively well but she is generally weak and because of the labwork abnormalities I discussed with Dr. Marie admitting her to the hospital. He wanted her continued on a regular antibiotic that she is on because chest x-ray did seem to improve somewhat however the patient is generally weak and had slightly low blood pressure when she was here. Currently does not meet her sepsis criteria but is agreeable to being admitted to the hospital. Vital Signs Temperature 97.5 F L 04/28/18 15:49 Pulse Rate 69 04/28/18 15:49 Respiratory Rate 16 04/28/18 15:49 Blood Pressure 146/57 04/28/18 15:49 O2 Sat by Pulse Oximetry 98 04/28/18 15:49 Temperature 97.5 F L 04/28/18 15:49 Pulse Rate 69 04/28/18 15:49 Respiratory Rate 16 04/28/18 15:49 Blood Pressure 146/57 04/28/18 15:49 O2 Sat by Pulse Oximetry 97 04/28/18 16:20 Oxygen Delivery Oxygen Delivery Room Air Medical Decision Making - MDM Narrative Medical decision making narrative: MDM: History and physical exam is consistent with - pneumonia, weakness, CLL, dehydration, DDx included multiple etiologies for the symptoms such as - pneumonia, weakness, CLL atypical CP, bronchitis COPD, ACS, Pneumonia, pneumothorax, Gerd, AAA, PE XRAYS: Pneumonia slight improvement Critical Care: None Condition and evaluation here was discussed in detail. Labwork, and test results were reviewed with the patient, she is agreeable to admission to the hospital for IV fluids breathing treatments and continued antibiotics until resolution of her weakness. I discussed patient detail with Dr. Marie. - Lab Data Result diagrams: 04/28/18 16:20 04/28/18 16:20 Lab Results 04/28/18 04/28/18 04/28/18 Range/Units 16:20 16:20 16:20 WBC 42.5 H* (4.3-11.1) K/mcL RBC 4.07 (3.82-4.97) M/mcL Hgb 12.2 (11.5-15.4) g/dL Hct 37.7 (35.3-44.9) % MCV 92.6 (83.0-100.0) fL MCH 30.0 (28.0-33.3) pg MCHC 32.4 (31.6-35.5) g/dL RDW 13.9 (11.5-14.5) % Plt Count 135 L (140-400) K/mcL MPV 8.4 L (9.4-12.4) fL Immature Gran % 0.4 (0-4) % Seg Neutrophils % 10.1 % Lymphocytes % 84.5 % Monocytes % 4.6 % Eosinophils % 0.3 % Basophils % 0.1 % Neutrophils # 4.3 (1.6-8.9) K/mcL Lymphocytes # 35.9 H (0.6-4.6) K/mcL Monocytes # 2.0 H (0.0-1.3) K/mcL Eosinophils # 0.1 (0.0-0.6) K/mcL Basophils # 0.0 (0.0-0.2) K/mcL Anisocytosis 1+ A (Not Present) PT 12.0 (9.4-12.1) Seconds INR 1.1 ABG pH (7.32-7.45) pH Units ABG pCO2 (35-45) mmHg ABG pO2 (85-104) mmHg ABG HCO3 (21-27) mEq/L ABG Total CO2 (20-26) mEq/L ABG O2 Saturation (95-98) % ABG Base Excess (-2 to 3) mEq/L Sodium 138 (136-145) mEq/L Potassium 4.0 (3.5-5.1) mEq/L Chloride 100 (98-107) mEq/L Carbon Dioxide 28 (23-29) mEq/L BUN 24 H (8-23) mg/dL Creatinine 1.30 H (0.60-1.20) mg/dL Est GFR ( Amer) 47 L (> 60) Est GFR (Non-Af Amer) 39 L (> 60) BUN/Creatinine Ratio 18 (6-26) Glucose 96 (70-105) mg/dL Calculated Osmolality 290 (280-300) Lactic Acid (0.5-2.2) mmol/L Calcium 9.1 (8.6-10.3) mg/dL Phosphorus 3.5 (2.7-4.5) mg/dL Magnesium 2.4 (1.6-2.6) mg/dL Total Bilirubin 0.4 (0.3-1.0) mg/dL Direct Bilirubin 0.1 (0.0-0.2) mg/dL Indirect Bilirubin 0.3 (0.0-1.2) mg/dL AST 25 (13-39) Units/L ALT 15 (7-52) Units/L Alkaline Phosphatase 65 (34-104) Units/L Troponin I < 0.03 (< 0.04) ng/mL B-Natriuretic Peptide (Less than 100) pg/mL Serum Total Protein 6.7 (6.4-8.9) g/dL Albumin 4.4 (3.5-5.7) g/dL Globulin 2.3 L (2.4-3.5) g/dL Albumin/Globulin Ratio 1.9 (1.1-2.2) 04/28/18 04/28/18 04/28/18 Range/Units 16:20 16:20 17:09 WBC (4.3-11.1) K/mcL RBC (3.82-4.97) M/mcL Hgb (11.5-15.4) g/dL Hct (35.3-44.9) % MCV (83.0-100.0) fL MCH (28.0-33.3) pg MCHC (31.6-35.5) g/dL RDW (11.5-14.5) % Plt Count (140-400) K/mcL MPV (9.4-12.4) fL Immature Gran % (0-4) % Seg Neutrophils % % Lymphocytes % % Monocytes % % Eosinophils % % Basophils % % Neutrophils # (1.6-8.9) K/mcL Lymphocytes # (0.6-4.6) K/mcL Monocytes # (0.0-1.3) K/mcL Eosinophils # (0.0-0.6) K/mcL Basophils # (0.0-0.2) K/mcL Anisocytosis (Not Present) PT (9.4-12.1) Seconds INR ABG pH 7.42 (7.32-7.45) pH Units ABG pCO2 44 (35-45) mmHg ABG pO2 60 L (85-104) mmHg ABG HCO3 29 H (21-27) mEq/L ABG Total CO2 30 H (20-26) mEq/L ABG O2 Saturation 91 L (95-98) % ABG Base Excess 4 H (-2 to 3) mEq/L Sodium (136-145) mEq/L Potassium (3.5-5.1) mEq/L Chloride (98-107) mEq/L Carbon Dioxide (23-29) mEq/L BUN (8-23) mg/dL Creatinine (0.60-1.20) mg/dL Est GFR ( Amer) (> 60) Est GFR (Non-Af Amer) (> 60) BUN/Creatinine Ratio (6-26) Glucose (70-105) mg/dL Calculated Osmolality (280-300) Lactic Acid 1.1 (0.5-2.2) mmol/L Calcium (8.6-10.3) mg/dL Phosphorus (2.7-4.5) mg/dL Magnesium (1.6-2.6) mg/dL Total Bilirubin (0.3-1.0) mg/dL Direct Bilirubin (0.0-0.2) mg/dL Indirect Bilirubin (0.0-1.2) mg/dL AST (13-39) Units/L ALT (7-52) Units/L Alkaline Phosphatase (34-104) Units/L Troponin I (< 0.04) ng/mL B-Natriuretic Peptide 237 H (Less than 100) pg/mL Serum Total Protein (6.4-8.9) g/dL Albumin (3.5-5.7) g/dL Globulin (2.4-3.5) g/dL Albumin/Globulin Ratio (1.1-2.2)
[2018-04-28] MEDS ORDERED: 0.9 % Sodium Chloride 1,000 ML IVC SCH ×2 (16:30→18:24)
[2018-04-28 16:43] LABS: Basophils % 0.1 %; Eosinophils # 0.1 K/mcL (0.0-0.6); Eosinophils % 0.3 %; Hematocrit 37.7 % (35.3-44.9); Hemoglobin 12.2 g/dL (11.5-15.4); Immature Granulocytes % 0.4 % (0-4); Lymphocytes # 35.9 K/mcL (0.6-4.6); Lymphocytes % 84.5 %; Mean Corpuscular HGB Conc 32.4 g/dL (31.6-35.5); Mean Corpuscular Volume 92.6 fL (83.0-100.0); Mean Platelet Volume 8.4 fL (9.4-12.4); Monocytes % 4.6 %; Neutrophils # 4.3 K/mcL (1.6-8.9); Platelet Count 135 K/mcL (140-400); Red Blood Count 4.07 M/mcL (3.82-4.97); Red Cell Distribution Width 13.9 % (11.5-14.5); Segmented Neutrophils % 10.1 %
[2018-04-28 16:44] LABS: INR 1.1
[2018-04-28 16:52] LABS: Alanine Aminotransferase 15 Units/L (7-52); Albumin 4.4 g/dL (3.5-5.7); Albumin/Globulin Ratio 1.9 (1.1-2.2); Alkaline Phosphatase 65 Units/L (34-104); Aspartate Amino Transferase 25 Units/L (13-39); BUN/Creatinine Ratio 18 (6-26); Bilirubin,Direct 0.1 mg/dL (0.0-0.2); Bilirubin,Indirect 0.3 mg/dL (0.0-1.2); Bilirubin,Total 0.4 mg/dL (0.3-1.0); Blood Urea Nitrogen 24 mg/dL (8-23); Calcium 9.1 mg/dL (8.6-10.3); Carbon Dioxide 28 mEq/L (23-29); Chloride 100 mEq/L (98-107); Globulin 2.3 g/dL (2.4-3.5); Glucose 96 mg/dL (70-105); Magnesium 2.4 mg/dL (1.6-2.6); Osmolality,Calculated 290 (280-300); Phosphorous 3.5 mg/dL (2.7-4.5); Sodium 138 mEq/L (136-145); Total Protein 6.7 g/dL (6.4-8.9); eGFR For African Americans 47 (> 60); eGFR For Non-African Americans 39 (> 60)
[2018-04-28 16:54] LABS: Anisocytosis 1+ (Not Present)
[2018-04-28 16:56] LABS: Troponin I < 0.03 ng/mL (< 0.04)
[2018-04-28 17:17] LABS: ABG Base Excess 4 mEq/L (-2 to 3); ABG HCO3 29 mEq/L (21-27); ABG Oxygen Saturation 91 % (95-98); ABG PCO2 44 mmHg (35-45); ABG PH 7.42 pH Units (7.32-7.45); ABG PO2 60 mmHg (85-104); ABG TCO2 30 mEq/L (20-26)
[2018-04-28] MEDS ORDERED: Naloxone 0.4 MG/ML INJ IVP PRN ×2 (17:53→18:24)
[2018-04-28] MEDS ORDERED: Acetaminophen 325 MG TABLET PO PRN ×2 (18:01→18:24)
[2018-04-28] MEDS ORDERED: Nitroglycerin 0.4 MG TAB.SUBL SL PRN ×2 (18:01→18:24)
[2018-04-28] MEDS ORDERED: levoFLOXacin 750 MG TABLET PO SCH (18:15)
[2018-04-28] MEDS ORDERED: Ipratropium/Albuterol Neb 3 ML IH SCH (21:00)
--- NOTE | 2018-04-28 22:01 | Internal Med History&Physical ---
Date of Encounter: 04/28/18 Time of Encounter: 21:55 Assessment and Plan (1) Pneumonia Current visit: Yes Status: Acute Patient continues to have pneumonia and secondary problems with her gait and acute kidney injury. She has been treated in the ER, was evaluated in the office and then sent back to the ER. Having failed outpatient treatment is recommended that she be admitted to the hospital. Since her chest x-ray has improved and white blood cell count is better we will continue with the Levaquin intravenously. Currently she is not having respiratory distress. Albuterol nebulizer has been ordered for as needed use Qualifiers: Pneumonia type: due to unspecified organism Laterality: bilateral Lung location: unspecified part of lung Qualified Code(s): J18.9 - Pneumonia, unspecified organism (2) Acute kidney injury superimposed on chronic kidney disease Current visit: Yes Status: Acute Her creatinine is 1.3 and this is a bit elevated compared to her baseline of about 1.1 to 1.2. Likely this is prerenal with poor by mouth intake. She will have IV fluids. Repeat has been ordered. (3) UTI (urinary tract infection) Current visit: Yes Status: Acute She had a urine culture done in the ER on 04/23/18 which grew 10,000 to 100,000 enterococcus. She said her urinary symptoms of dysuria have cleared. Follow- up urine has been ordered. Qualifiers: Urinary tract infection type: acute cystitis Hematuria presence: without hematuria Qualified Code(s): N30.00 - Acute cystitis without hematuria (4) Chronic lymphocytic leukemia Current visit: Yes Status: Chronic Chronically she has CLL. She is followed by Dr. Stroud. She takes no medication currently. Chronically she has lymphadenopathy in the supraclavicular and lateral neck areas bilaterally. These nodes are basically unchanged. (5) Hx of CABG Current visit: Yes Status: Chronic History of CAD and CABG 2010. She has had no angina since then. We will recheck an echocardiogram. She had one done in July with a 60-65% ejection fraction. No obvious signs of CHF, but I will do not want to give her too much IV fluids. (6) Mild cognitive impairment Current visit: Yes Status: Chronic She has mild dementia and anxiety. She also has some superimposed depression improved with fluoxetine. However she is able take care of self at home, she has been driving, going to [employer] and the supermarket etc. She becomes nervous when she is not sure if something does not know the right answer to the questions. She also questions her self all the time. She knows that her memory is not good. (7) Elevated brain natriuretic peptide (BNP) level Current visit: Yes Status: Acute She had elevated BNP, she has had elevated BNP much higher in the past. She has no obvious congestive heart failure but certainly at risk with her history of CAD and CABG in the past. Her last echocardiogram showed ejection fraction 60-65%. Follow-up echo will be arranged (8) DVT prophylaxis Current visit: Yes Status: Acute The ER physician has ordered lower extremity pumps. However we will change this to Lovenox because of her risk factors of CLL, being at bed rest, pneumonia etc. Internal Medicine - H&P: HPI Chief complaint: I am just so weak Admitted From: Emergency Dept Plans for Post Hospital Care: Home History of present illness: Ms. Vega is a 82 year old female with known history of CLL which is been stable, history of CAD and CABG 2010, mild cognitive impairment and anxiety was seen in the office today in follow-up from an ER visit of 04/23/18 where she was seen with pneumonia and UTI. Patient was initially seen in the emergency room with lightheadedness the started at 5 AM. She had yellow sputum production and wheezing and she was seen in the emergency room. There she was treated for pneumonia and UTI and was sent home on Levaquin and albuterol inhaler left (but she never got the inhaler). When I saw her in the office in follow-up today she felt lightheaded while she was in the lobby she is very weak and short of breath and had to be placed in a wheelchair. She said it was difficult to explain what was happening to her. She says she has not fallen on the floor but she has fallen onto the wall at home. She is uncertain of any details. Her sister Holley happened to be in the office at the same time and was a historian during the exam as well. She has never seen her sister be so weak and had difficulty walking either. Patient denies any cardiac type chest pain, palpitations. She however has been short of breath and "dizzy" weak and difficulties walking. She states that her urination now he is normal and no discomfort that she had last week. She states she has been eating but cannot recall what. She denies any fevers or chills. In the office she started to fall within 3 feet of leaving the wheelchair. Her blood pressure was relatively low at 108/64. Her saturation was 94%. We could not get a weight on her as she was too unstable to stand. She had pulmonary findings consistent with pneumonia and she was sent to the ER for further evaluation. In the ER she was found to have elevated white blood cell count of 41,000 left ( not uncommon with her CLL), chest x-ray still shows bilateral infiltrates but showing improvement. Her PO2 was only 60. Her creatinine was elevated above baseline. Having failed outpatient treatment, office visit and return to the ER it was decided she would benefit from hospital admission. Past Med Surg Social Fam HX - Past Medical History Medical history: CHF (Remote history of CHF. Ejection fraction 60-65% on echo from 07/2017), coronary artery disease (History of CABG 2010), dementia (Mild memory issues but lives at home, drives a car, maintains her ADLs appropriate for her age.), GERD, hyperlipidemia, hypertension, malignancy (Chronic lymphocytic leukemia and sees Dr. Stroud. Has been stable and takes no medications currently), osteoporosis, renal disease, TIA, other Additional medical history: CLL Psychiatric history: anxiety, depression - Past Surgical History Surgical History: cholecystectomy, coronary bypass (CABG) Additional surgical history: Open heart surgery- aortocoronary bypass graft - Social History Smoking Status: Never smoker Smokeless Tobacco Status: No Alcohol use: none Drug use: none Occupational status: retired Current living situation: Home - Independent Activity Level: Independent ambulation Recent Out of Country Travel Within the Last 8 Weeks: No Exposure or Possible Exposure to Illness During Travel: No - Family History Mother Living Status: Age at : 95 Cause of : Heart disease Hx Family Cardiac Disorders: Yes Father Living Status: Age at : 80 Cause of : heart failure Hx Family Cardiac Disorders: Yes Hx Family Respiratory Disorders: No Hx Family Cancer: No Son Living Status: Still Living Hx Family Cardiac Disorders: Yes (Hypertension) Brother Hx Family Cancer: Yes (Lung cancer) Internal Medicine - H&P: Meds FLUoxetine HCl [Prozac] 40 mg PO DAILY 09/24/15 [History] Furosemide [Lasix] 40 mg PO BID 09/24/15 [History] Lisinopril [Zestril] 2.5 mg PO DAILY 09/24/15 [History] Metoprolol [Lopressor] 12.5 mg PO BID 09/24/15 [History] Omeprazole [PriLOSEC] 20 mg PO DAILY 09/24/15 [History] Pravastatin Sodium [Pravachol] 20 mg PO DAILY 09/24/15 [History] Ferrous Sulfate [Iron] 325 mg PO DAILY 01/23/16 [History] Acetaminophen [Tylenol] 325 mg PO Q6HR PRN 04/23/18 [History] Albuterol Sulfate [Albuterol Inhaler] 2 puff IH Q6HR PRN #1 inhaler 04/23/18 [Rx ] Aspirin 81 mg PO DAILY 04/23/18 [History] Calcium Carbonate [Tums] 500 mg PO DAILY 04/23/18 [History] Calcium Carbonate/Vitamin D2 [Ra Oyster Shell-Vitamin D Tab] 1 each PO DAILY [History] Levofloxacin [Levaquin] 750 mg PO AD #5 tablet 04/23/18 [Rx] Multivitamin [One Daily Essential] 1 each PO DAILY 04/23/18 [History] Nitroglycerin [Nitrostat] 0.4 mg SL Q5M PRN MDD 3 tab 04/23/18 [History] 3 Allergy/AdvReac Type Severity Reaction Status Date / Time Penicillins [PCN] Allergy Hives Verified 04/23/18 06:19 Sulfa (Sulfonamide Allergy Hives Verified 04/23/18 06:19 Antibiotics) - Constitutional Constitutional: fatigue, falls, no excessive sweating, no fever(s) - EENT Eyes: no change in vision Ears: no ear discharge, no ear pain Nose, mouth and throat: dry mouth, no mouth pain, no sinus pain, no sore throat - Cardiovascular Cardiovascular ROS IM: dyspnea, dyspnea on exertion, lightheadedness, no chest pain, no irregular heart rhythm, no palpitations, no syncope - Respiratory Respiratory: cough, dyspnea, dyspnea on exertion, wheezing, excessive phlegm production, no hemoptysis - Gastrointestinal Gastrointestinal: no change in bowel habits, no constipation, no diarrhea, no hematochezia, no melena - Genitourinary Genitourinary: no dysuria, no urinary urgency Menstruation: post menopausal - Musculoskeletal Musculoskeletal ROS IM: muscle weakness (Generalized weakness. She thinks her left is weaker than her right), no neck pain - Integumentary Integumentary IM: no rash - Neurological Neurological ROS: dizziness, frequent falls, memory loss (Chronic mild memory loss. Makes her a poor historian), no focal weakness, no loss of vision - Psychiatric Psychiatric: no auditory hallucinations, no hallucinations, no visual hallucinations - Constitutional Vitals: Temp Pulse Resp BP Pulse Ox 97.5 F L 71 16 104/62 97 04/28/18 18:48 04/28/18 18:48 04/28/18 18:48 04/28/18 18:48 04/28/18 20:01 General appearance: Present: A&O X 3 (She knows the month, the year, the date and day of the week. She however gets very anxious when answering questions about her medications or other issues. She gets very forgetful and frustrated) , no acute distress (No acute distress while lying in bed.) - Head Head exam: Present: atraumatic - Eye Eye exam: Present: EOMI. Absent: scleral icterus - ENT ENT exam: Present: mucous membranes dry, normal oropharynx, TM's normal bilaterally - Neck Neck exam general surgery: Present: lymphadenopathy (Chronically she has lymphadenopathy particularly noted in the supraclavicular and lateral neck areas bilaterally). Absent: tenderness, thyromegaly - Respiratory Additional comments: She has crackles heard at both bases. Anteriorly she has high-pitched wheezes and crackles heard in the left upper chest. No orthopnea or respiratory distress. - Cardiovascular Cardiovascular exam: Present: RRR, +S1, +S2 - GI/Abdominal GI/Abdominal exam: Present: soft. Absent: tenderness - Extremities Exam Extremities exam: Present: full ROM. Absent: calf tenderness, cyanotic, joint swelling, pedal edema, tenderness Additional comments: Good dorsalis pedis pulses. No edema - Back Exam Back exam: Absent: vertebral tenderness - Psychiatric Psychiatric exam: Present: anxious Additional comments: She gets anxious and nervous particularly when she cannot answer a question appropriately. However she was oriented to day, date, month. She thought it was 2018. - Skin Additional comments: Small amount bruise on forearms but nothing very dramatic. No skin tears. Internal Med - H&P Results - Labs CBC & Chem 7: 04/28/18 16:20 04/28/18 16:20 Labs: Cardiac Enzymes 04/28/18 Range/Units 18:21 Troponin I < 0.03 (< 0.04) ng/mL Labs have been reviewed. CLL and chronically has elevated white blood cell count. Creatinine is above baseline and likely prerenal.
[2018-04-28] MEDS ORDERED: Albuterol 2.5 MG/3 ML NEBULIZER IH PRN (22:49)
[2018-04-28] MEDS: Ipratropium/Albuterol Neb 3 ML IH SCH (23:33)
[2018-04-28] MEDS: 0.9 % Sodium Chloride 1,000 ML IVC SCH (23:33)
[2018-04-29 00:02] LABS: Bilirubin,Urine Negative (Negative); Blood,Urine Trace-lysed (Negative); Clarity,Urine Clear (Clear); Color,Urine Yellow (Yellow); Glucose,Urine (UA) Normal (Normal); Ketones,Urine Negative (Negative); Leukocyte Esterase,Urine Negative (Negative); Nitrite,Urine Negative (Negative); Protein,Urine Negative (Neg-Trace); Urobilinogen,Urine Normal (Normal)
[2018-04-29 01:24] LABS: Bacteria,Urine Few per hpf (None-Few); RBC,Urine 0-3 per hpf (0-3); Squamous Epithelial Cell,Urine Few per lpf (None-Few); Transitional Epi Cells,Urine Few per hpf (None-Few); WBC,Urine 0-3 per hpf (0-3)
[2018-04-29 05:23] LABS: Basophils % 0.1 %; Eosinophils # 0.1 K/mcL (0.0-0.6); Eosinophils % 0.2 %; Hematocrit 31.9 % (35.3-44.9); Hemoglobin 10.4 g/dL (11.5-15.4); Immature Granulocytes % 0.1 % (0-4); Lymphocytes # 36.9 K/mcL (0.6-4.6); Lymphocytes % 90.4 %; Mean Corpuscular HGB Conc 32.6 g/dL (31.6-35.5); Mean Corpuscular Hemoglobin 30.4 pg (28.0-33.3); Mean Corpuscular Volume 93.3 fL (83.0-100.0); Mean Platelet Volume 7.8 fL (9.4-12.4); Monocytes # 1.2 K/mcL (0.0-1.3); Monocytes % 2.9 %; Platelet Count 100 K/mcL (140-400); Red Blood Count 3.42 M/mcL (3.82-4.97); Red Cell Distribution Width 13.9 % (11.5-14.5); Segmented Neutrophils % 6.3 %
[2018-04-29 05:34] LABS: Neutrophils # 2.6 K/mcL (1.6-8.9)
[2018-04-29 05:35] LABS: INR 1.1; Prothrombin Time 12.4 Seconds (9.4-12.1)
[2018-04-29 05:56] LABS: Calcium 8.4 mg/dL (8.6-10.3); Potassium 3.5 mEq/L (3.5-5.1)
[2018-04-29] MEDS: Ipratropium/Albuterol Neb 3 ML IH SCH ×4 (05:57→23:40)
[2018-04-29] MEDS ORDERED: *HR* Enoxaparin 40 MG/0.4 ML SYRINGE SQ SCH (06:00)
[2018-04-29] MEDS: FLUoxetine 20 MG CAPSULE PO SCH (08:17)
[2018-04-29] MEDS: Aspirin 81 MG TAB.CHEW PO SCH (08:17)
[2018-04-29] MEDS: Cholecalciferol (D-3) 1,000 UNIT TABLET PO SCH (08:17)
[2018-04-29] MEDS: levoFLOXacin 750 MG TABLET PO SCH (08:17)
[2018-04-29] MEDS: Multivit/Ca/Min/Fe/FA 1 TAB TABLET PO SCH (08:18)
[2018-04-29] MEDS: 0.9 % Sodium Chloride 1,000 ML IVC SCH ×2 (08:27→23:40)
[2018-04-29] MEDS ORDERED: NON-FORMULARY MEDICATION 1 EACH EACH (Multivitamin [One Daily Essential] 1 EACH) PO SCH (09:00)
[2018-04-29] MEDS ORDERED: NON-FORMULARY MEDICATION 1 EACH EACH (Fluoxetine Hcl [Prozac] 40 MG) PO SCH (09:00)
[2018-04-29] MEDS ORDERED: NON-FORMULARY MEDICATION 1 EACH EACH (Pravastatin Sodium [Pravachol] 20 MG) PO SCH (09:00)
[2018-04-29] MEDS ORDERED: CALCIUM CARBONATE PO SCH (09:00)
[2018-04-29] MEDS ORDERED: NON-FORMULARY MEDICATION 1 EACH EACH (Ferrous Sulfate [Iron] 325 MG) PO SCH (09:00)
[2018-04-29] MEDS ORDERED: Aspirin 81 MG TAB.CHEW PO SCH (09:00)
[2018-04-29] MEDS ORDERED: VITAMIN D2 PO SCH (09:00)
[2018-04-29] MEDS ORDERED: [UNRECOGNIZED DRUG - OTHER] PO SCH (09:00)
[2018-04-29] MEDS ORDERED: 0.9 % Sodium Chloride 500 ML IVC ONE (10:29)
--- NOTE | 2018-04-29 13:09 | Internal Med Progress Note ---
Date of Encounter: 04/29/18 Time of Encounter: 08:15 - Assessment and plan (1) Pneumonia Current Visit: Yes Status: Acute Assessment and plan: she is currently on levaquin iv, her cxr this am not much change. she does not have many resp complaints but mild cough. blood culutres are pending her wbc count is better today Qualifiers: Pneumonia type: due to unspecified organism Laterality: bilateral Lung location: unspecified part of lung Qualified Code(s): J18.9 - Pneumonia, unspecified organism (2) Chronic lymphocytic leukemia Current Visit: Yes Status: Chronic Assessment and plan: this is followed by oncology. wbc decreased this am (3) Hx of CABG Current Visit: Yes Status: Chronic Assessment and plan: troponins were negative. no cp, nsr on tele will continue to follow (4) Osteoporosis Current Visit: No Status: Chronic Qualifiers: Osteoporosis type: age-related Presence of current pathological fracture: without current pathological fracture Qualified Code(s): M81.0 - Age-related osteoporosis without current pathological fracture (5) Depression Current Visit: No Status: Chronic Assessment and plan: will continue her home ssri. 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 this does not appear to be any changes from prior (7) Anemia Current Visit: No Status: Chronic Assessment and plan: has gone down will continue the iron and repeat in am Qualifiers: Anemia type: unspecified type Qualified Code(s): D64.9 - Anemia, unspecified (8) DVT prophylaxis Current Visit: Yes Status: Acute Assessment and plan: on lovenox. she just got her first dose this am. her plt count did go down will continue to follow (9) Physical deconditioning Current Visit: No Status: Acute Assessment and plan: pt ot eval . likely will need several day stays to regain her strength to be able to return home (10) UTI (urinary tract infection) Current Visit: Yes Status: Acute Assessment and plan: on levaquin, repeat urine does not appear infected Qualifiers: Urinary tract infection type: acute cystitis Hematuria presence: without hematuria Qualified Code(s): N30.00 - Acute cystitis without hematuria (11) Dehydration Current Visit: Yes Status: Acute Assessment and plan: ivf. her blood pressure has been running low had to give a ns bolus (12) Acute kidney injury superimposed on chronic kidney disease Current Visit: Yes Status: Acute Assessment and plan: has improved with ivf (13) Elevated brain natriuretic peptide (BNP) level Current Visit: Yes Status: Acute Assessment and plan: will continue to follow have to give ivf due to the hypotension (14) Weakness Current Visit: No Status: Acute Assessment and plan: pt /ot eval likely due to the pneumonia, uti and dehydration - Subjective Interval history: states she tired and no energy. no pain. she has a cough. no sob, she feels dizzy, no n/v, no dysuria, no freq, no hematuria. no cp no palp. she did not sleep well last night. - Constitutional Vitals: Temp Pulse Resp BP Pulse Ox 97.3 F L 72 18 101/66 93 04/29/18 11:22 04/29/18 12:02 04/29/18 12:02 04/29/18 12:02 04/29/18 12:02 General appearance: Present: A&O X 3 (name,day month place not year), no acute distress (No acute distress while lying in bed.) - Head Head exam: Present: atraumatic, normocephalic - Neck Neck exam general surgery: Present: supple, trachea midline - Respiratory Respiratory exam: Present: rhonchi (bilateral bases right>left) - Cardiovascular Cardiovascular exam: Present: RRR, +S1, +S2. Absent: systolic murmur - GI/Abdominal GI/Abdominal exam: Present: normal bowel sounds, soft, no peritoneal signs. Absent: distended, guarding, mass, tenderness - Extremities Exam Extremities exam: Present: normal capillary refill, warm. Absent: pedal edema - Skin Skin exam: Present: dry, warm. Absent: rash Internal Medicine: Result - Labs CBC & Chem 7: 04/29/18 05:15 04/29/18 05:15 Labs: Short CBC 04/29/18 Range/Units 05:15 WBC 40.8 H* (4.3-11.1) K/mcL Hgb 10.4 L D (11.5-15.4) g/dL Hct 31.9 L (35.3-44.9) % Plt Count 100 L (140-400) K/mcL Neutrophils # 2.6 (1.6-8.9) K/mcL BMP 04/29/18 05:15 Sodium 141 Potassium 3.5 Chloride 105 Carbon Dioxide 28 BUN 21 Creatinine 1.19 Glucose 100 Calcium 8.4 L Cardiac Enzymes 04/29/18 Range/Units 05:15 Troponin I < 0.03 (< 0.04) ng/mL - ABG Interpretation ABG results: ABG ABG pH 7.42 pH Units (7.32-7.45) 04/28/18 17:09 ABG pCO2 44 mmHg (35-45) 04/28/18 17:09 ABG pO2 60 mmHg (85-104) L 04/28/18 17:09 ABG O2 Saturation 91 % (95-98) L 04/28/18 17:09 PT/INR, D-dimer PT 12.4 Seconds (9.4-12.1) H 04/29/18 05:15 - Impressions Impressions Chest X-Ray 04/29/18 06:00 IMPRESSION: Chronic bilateral lower lobe airspace opacities have not significantly changed since 06/11/2015 and may reflect areas of chronic scarring. Trace bilateral pleural effusions are unchanged. D/ / 04/29/2018 10:01:41 Ariana Pérez MD / [facility]old Interpreting Provider: Ariana Pérez MD Consult Discharge Plan - Plan Referrals: Larry White MD [Primary Care Provider] -
[2018-04-29] MEDS ORDERED: 0.9 % Sodium Chloride 500 ML ONE (13:23)
--- NOTE | 2018-04-29 16:32 | Electrocardiograph Report ---
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
--- NOTE | 2018-04-29 16:46 | Electrocardiograph Report ---
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
[2018-04-30] MEDS: Ipratropium/Albuterol Neb 3 ML IH SCH ×4 (04:47→22:40)
[2018-04-30 04:53] LABS: Basophils # 0.1 K/mcL (0.0-0.2); Basophils % 0.2 %; Eosinophils # 0.1 K/mcL (0.0-0.6); Eosinophils % 0.4 %; Hematocrit 32.1 % (35.3-44.9); Hemoglobin 10.3 g/dL (11.5-15.4); Immature Granulocytes % 0.2 % (0-4); Lymphocytes # 24.1 K/mcL (0.6-4.6); Lymphocytes % 86.2 %; Mean Corpuscular HGB Conc 32.1 g/dL (31.6-35.5); Mean Corpuscular Hemoglobin 30.2 pg (28.0-33.3); Mean Corpuscular Volume 94.1 fL (83.0-100.0); Mean Platelet Volume 7.9 fL (9.4-12.4); Monocytes # 0.9 K/mcL (0.0-1.3); Monocytes % 3.1 %; Neutrophils # 2.8 K/mcL (1.6-8.9); Red Blood Count 3.41 M/mcL (3.82-4.97); Segmented Neutrophils % 9.9 %
[2018-04-30 05:08] LABS: BUN/Creatinine Ratio 15 (6-26); Blood Urea Nitrogen 16 mg/dL (8-23); Calcium 7.8 mg/dL (8.6-10.3); Carbon Dioxide 22 mEq/L (23-29); Chloride 113 mEq/L (98-107); Glucose 109 mg/dL (70-105); Osmolality,Calculated 294 (280-300); Potassium 3.7 mEq/L (3.5-5.1); Sodium 141 mEq/L (136-145); eGFR For African Americans > 60 (> 60); eGFR For Non-African Americans 50 (> 60)
[2018-04-30 05:23] LABS: Platelet Count 83 K/mcL (140-400)
[2018-04-30 05:34] LABS: Platelet Estimate Slight Decrease (Normal)
[2018-04-30] MEDS: Cholecalciferol (D-3) 1,000 UNIT TABLET PO SCH (08:18)
[2018-04-30] MEDS: FLUoxetine 20 MG CAPSULE PO SCH (08:18)
[2018-04-30] MEDS: Aspirin 81 MG TAB.CHEW PO SCH (08:18)
[2018-04-30] MEDS: Multivit/Ca/Min/Fe/FA 1 TAB TABLET PO SCH (08:19)
--- NOTE | 2018-04-30 08:29 | Internal Med Progress Note ---
<Camilo Patel - Last Filed: 04/30/18 10:17> Date of Encounter: 04/30/18 - Constitutional Vitals: Temp Pulse Resp BP Pulse Ox 97.4 F L 73 16 125/73 96 04/30/18 07:53 04/30/18 07:53 04/30/18 07:53 04/30/18 07:53 04/30/18 08:00 Internal Medicine: Result - Labs CBC & Chem 7: 04/30/18 04:47 04/30/18 04:47 Labs: Short CBC 04/30/18 Range/Units 04:47 WBC 28.0 H (4.3-11.1) K/mcL Hgb 10.3 L (11.5-15.4) g/dL Hct 32.1 L (35.3-44.9) % Plt Count 83 L (140-400) K/mcL Neutrophils # 2.8 (1.6-8.9) K/mcL BMP 04/30/18 04:47 Sodium 141 Potassium 3.7 Chloride 113 H Carbon Dioxide 22 L BUN 16 Creatinine 1.04 Glucose 109 H Calcium 7.8 L - ABG Interpretation ABG results: ABG ABG pH 7.42 pH Units (7.32-7.45) 04/28/18 17:09 ABG pCO2 44 mmHg (35-45) 04/28/18 17:09 ABG pO2 60 mmHg (85-104) L 04/28/18 17:09 ABG O2 Saturation 91 % (95-98) L 04/28/18 17:09 PT/INR, D-dimer PT 12.4 Seconds (9.4-12.1) H 04/29/18 05:15 - Impressions Impressions Echocardiogram 04/29/18 22:54 Impressions: LVEF 65%. Moderate left ventricular diastolic dysfunction. Normal RV structure and function. Mild-moderate mitral regurgitation. Moderate tricuspid regurgitation. Mild pulmonic regurgitation. Mild pulmonary hypertension. Left Ventricular Wall Motion: Rest Echo Findings All wall segments showed normal motion. Findings: Study Quality * Technically adequate exam. ECG Findings * Normal sinus rhythm. Left Ventricle * LVEF 65%. * Normal LV chamber size, wall thickness and function. * Moderate left ventricular diastolic dysfunction. Right Ventricle * Normal right ventricular structure and function. Left Atrium * Severely dilated left atrium. Right Atrium * Normal right atrial size. Mitral Valve * Normal mitral valve structure. * No mitral stenosis. * Mild-moderate mitral regurgitation. Aortic Valve * No aortic regurgitation. * Trileaflet aortic valve. * No aortic stenosis. Tricuspid Valve * Normal tricuspid valve structure. * Moderate tricuspid regurgitation. * Estimated RA pressure is 3 mmHg. * Estimated RVSP is 40 mmHg. * Mild pulmonary hypertension. Pulmonic Valve * Pulmonic valve is not well visualized. * No pulmonic stenosis. * Mild pulmonic regurgitation. Pulmonary Artery * Pulmonary artery not well visualized. Aorta * Normally sized aortic root. Pericardium * There is no pericardial effusion present. Interatrial Septum * No evidence of PFO by color Doppler. IVC * Normal IVC dimensions and inspiratory collapse. Consult Discharge Plan - Plan Referrals: Larry White MD [Primary Care Provider] - <Tennille May - Last Filed: 04/30/18 18:37> Date of Encounter: 04/30/18 Time of Encounter: 08:29 - Assessment and plan (1) Pneumonia Current Visit: Yes Status: Acute Assessment and plan: she is currently on levaquin iv, she does not have many resp complaints but mild cough. blood cultures are pending her wbc count is better today she is afebrile. her hypotension has resolved. failed outpatient treatment for her pneumonia Qualifiers: Pneumonia type: due to unspecified organism Laterality: bilateral Lung location: unspecified part of lung Qualified Code(s): J18.9 - Pneumonia, unspecified organism (2) Chronic lymphocytic leukemia Current Visit: Yes Status: Chronic Assessment and plan: this is followed by oncology. wbc decreased this am (3) Hx of CABG Current Visit: Yes Status: Chronic Assessment and plan: troponins were negative. no cp, nsr on tele will continue to follow (4) Osteoporosis Current Visit: No Status: Chronic Qualifiers: Osteoporosis type: age-related Presence of current pathological fracture: without current pathological fracture Qualified Code(s): M81.0 - Age-related osteoporosis without current pathological fracture (5) Depression Current Visit: No Status: Chronic Assessment and plan: will continue her home ssri. 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 this does not appear to be any changes from prior (7) Anemia Current Visit: No Status: Chronic Assessment and plan: has gone down will continue the iron and repeat in am Qualifiers: Anemia type: unspecified type Qualified Code(s): D64.9 - Anemia, unspecified (8) DVT prophylaxis Current Visit: Yes Status: Acute Assessment and plan: had to stop the lovenox due to thrombocytopenia. her plt count did go down will continue to follow. we did not have scds small enough to fit her. will ambulate tid and have her wear leonela hose (9) Physical deconditioning Current Visit: No Status: Acute Assessment and plan: pt ot eval . likely will need several day stays to regain her strength to be able to return home (10) UTI (urinary tract infection) Current Visit: Yes Status: Acute Assessment and plan: on levaquin, repeat urine does not appear infected Qualifiers: Urinary tract infection type: acute cystitis Hematuria presence: without hematuria Qualified Code(s): N30.00 - Acute cystitis without hematuria (11) Dehydration Current Visit: Yes Status: Acute Assessment and plan: ivf. her blood pressure has been running low had to give a ns bolus. has improved with th ivf (12) Acute kidney injury superimposed on chronic kidney disease Current Visit: Yes Status: Acute Assessment and plan: has improved with ivf (13) Elevated brain natriuretic peptide (BNP) level Current Visit: Yes Status: Acute (14) Weakness Current Visit: No Status: Acute Assessment and plan: pt /ot eval likely due to the pneumonia, uti and dehydration (15) Hypotension Current Visit: Yes Status: Acute Assessment and plan: yesterday her blood pressures were running 80 to 90 sbp. she was dizzy and weak. she did get ivf and bolus of ivf. her lisinopril and beta sanjay were held. this is back in range today. this is due to dehydration from her pneumonia and uti Qualifiers: Hypotension type: hypotension due to hypovolemia Qualified Code(s): I95.89 - Other hypotension; E86.1 - Hypovolemia (16) Thrombocytopenia Current Visit: Yes Status: Acute Assessment and plan: got lower after getting lovenox will stop the lovenox. repeat in am (17) Constipation Current Visit: Yes Status: Acute Assessment and plan: will add colace Qualifiers: Constipation type: unspecified constipation type Qualified Code(s): K59.00 - Constipation, unspecified - Subjective Interval history: states she tired and no energy. no pain. she has a cough. no sob, she feels dizzy, no n/v, no dysuria, no freq, no hematuria. no cp no palp. she did not sleep well last night. - Constitutional Vitals: Temp Pulse Resp BP Pulse Ox 97.4 F L 73 16 125/73 91 04/30/18 07:53 04/30/18 07:53 04/30/18 07:53 04/30/18 07:53 04/30/18 07:53 General appearance: Present: A&O X 3, no acute distress (No acute distress while lying in bed.) - Head Head exam: Present: atraumatic - Respiratory Respiratory exam: Present: rhonchi (bilateral bases). Absent: accessory muscle use, respiratory distress, wheezes - Cardiovascular Cardiovascular exam: Present: RRR, +S1, +S2 - GI/Abdominal GI/Abdominal exam: Present: soft, no peritoneal signs. Absent: distended, guarding, mass, normal bowel sounds, tenderness - Extremities Exam Extremities exam: Present: warm. Absent: mottling, pedal edema - Skin Skin exam: Present: dry, warm Internal Medicine: Result - Labs CBC & Chem 7: 04/30/18 04:47 04/30/18 04:47 Labs: Short CBC 04/30/18 Range/Units 04:47 WBC 28.0 H (4.3-11.1) K/mcL Hgb 10.3 L (11.5-15.4) g/dL Hct 32.1 L (35.3-44.9) % Plt Count 83 L (140-400) K/mcL Neutrophils # 2.8 (1.6-8.9) K/mcL BMP 04/30/18 04:47 Sodium 141 Potassium 3.7 Chloride 113 H Carbon Dioxide 22 L BUN 16 Creatinine 1.04 Glucose 109 H Calcium 7.8 L - ABG Interpretation ABG results: ABG ABG pH 7.42 pH Units (7.32-7.45) 04/28/18 17:09 ABG pCO2 44 mmHg (35-45) 04/28/18 17:09 ABG pO2 60 mmHg (85-104) L 04/28/18 17:09 ABG O2 Saturation 91 % (95-98) L 04/28/18 17:09 PT/INR, D-dimer PT 12.4 Seconds (9.4-12.1) H 04/29/18 05:15 - Impressions Impressions Chest X-Ray 04/29/18 06:00 IMPRESSION: Chronic bilateral lower lobe airspace opacities have not significantly changed since 06/11/2015 and may reflect areas of chronic scarring. Trace bilateral pleural effusions are unchanged. D/ / 04/29/2018 10:01:41 Ariana Pérez MD / earnold Interpreting Provider: Ariana Pérez MD Echocardiogram 04/29/18 22:54 Impressions: LVEF 65%. Moderate left ventricular diastolic dysfunction. Normal RV structure and function. Mild-moderate mitral regurgitation. Moderate tricuspid regurgitation. Mild pulmonic regurgitation. Mild pulmonary hypertension. Left Ventricular Wall Motion: Rest Echo Findings All wall segments showed normal motion. Findings: Study Quality * Technically adequate exam. ECG Findings * Normal sinus rhythm. Left Ventricle * LVEF 65%. * Normal LV chamber size, wall thickness and function. * Moderate left ventricular diastolic dysfunction. Right Ventricle * Normal right ventricular structure and function. Left Atrium * Severely dilated left atrium. Right Atrium * Normal right atrial size. Mitral Valve * Normal mitral valve structure. * No mitral stenosis. * Mild-moderate mitral regurgitation. Aortic Valve * No aortic regurgitation. * Trileaflet aortic valve. * No aortic stenosis. Tricuspid Valve * Normal tricuspid valve structure. * Moderate tricuspid regurgitation. * Estimated RA pressure is 3 mmHg. * Estimated RVSP is 40 mmHg. * Mild pulmonary hypertension. Pulmonic Valve * Pulmonic valve is not well visualized. * No pulmonic stenosis. * Mild pulmonic regurgitation. Pulmonary Artery * Pulmonary artery not well visualized. Aorta * Normally sized aortic root. Pericardium * There is no pericardial effusion present. Interatrial Septum * No evidence of PFO by color Doppler. IVC * Normal IVC dimensions and inspiratory collapse. - VTE Documentation of Mechanical Device: Graduated compression elastic hosiery
[2018-05-01] MEDS: Ipratropium/Albuterol Neb 3 ML IH SCH ×4 (05:48→23:54)
[2018-05-01 09:03] LABS: Basophils % 0.1 %; Eosinophils # 0.1 K/mcL (0.0-0.6); Eosinophils % 0.2 %; Hematocrit 32.5 % (35.3-44.9); Hemoglobin 10.5 g/dL (11.5-15.4); Immature Granulocytes % 0.3 % (0-4); Lymphocytes # 31.4 K/mcL (0.6-4.6); Mean Corpuscular HGB Conc 32.3 g/dL (31.6-35.5); Mean Corpuscular Volume 92.9 fL (83.0-100.0); Mean Platelet Volume 8.4 fL (9.4-12.4); Monocytes # 0.9 K/mcL (0.0-1.3); Monocytes % 2.4 %; Neutrophils # 3.6 K/mcL (1.6-8.9); Red Cell Distribution Width 14.3 % (11.5-14.5)
[2018-05-01 09:06] LABS: Platelet Count 96 K/mcL (140-400)
[2018-05-01 09:15] LABS: BUN/Creatinine Ratio 14 (6-26); Blood Urea Nitrogen 13 mg/dL (8-23); Calcium 8.7 mg/dL (8.6-10.3); Carbon Dioxide 22 mEq/L (23-29); Chloride 109 mEq/L (98-107); Glucose 113 mg/dL (70-105); Osmolality,Calculated 287 (280-300); Potassium 3.7 mEq/L (3.5-5.1); Sodium 138 mEq/L (136-145); eGFR For African Americans > 60 (> 60); eGFR For Non-African Americans 56 (> 60)
[2018-05-01 09:18] LABS: Platelet Estimate Normal (Normal)
[2018-05-01] MEDS: Levofloxacin 500 MG/100 ML 500 MG/100 ML BAG IVPB SCH (10:30)
[2018-05-01] MEDS: Multivit/Ca/Min/Fe/FA 1 TAB TABLET PO SCH (10:32)
[2018-05-01] MEDS: FLUoxetine 20 MG CAPSULE PO SCH (10:32)
[2018-05-01] MEDS: Cholecalciferol (D-3) 1,000 UNIT TABLET PO SCH (10:32)
[2018-05-01] MEDS: *HR* Enoxaparin 30 MG/0.3 ML SYRINGE SQ SCH (10:34)
[2018-05-01] MEDS: Aspirin 81 MG TAB.CHEW PO SCH (10:34)
[2018-05-01] MEDS: levoFLOXacin 750 MG TABLET PO SCH (11:27)
--- NOTE | 2018-05-01 12:44 | Internal Med Progress Note ---
Date of Encounter: 05/01/18 Time of Encounter: 12:14 - Assessment and plan (1) Pneumonia Current Visit: Yes Status: Acute Assessment and plan: she is currently on levaquin po by error now on the iv levaquin since she is not improving and remaining hypoxic, blood cultures are negative her wbc count is elevated more today she is afebrile. her hypotension has resolved. failed outpatient treatment for her pneumonia Qualifiers: Pneumonia type: due to unspecified organism Laterality: bilateral Lung location: unspecified part of lung Qualified Code(s): J18.9 - Pneumonia, unspecified organism (2) Chronic lymphocytic leukemia Current Visit: Yes Status: Chronic Assessment and plan: this is followed by oncology. wbc increased this am (3) Hx of CABG Current Visit: Yes Status: Chronic Assessment and plan: troponins were negative. no cp, nsr on tele will continue to follow (4) Osteoporosis Current Visit: No Status: Chronic Qualifiers: Osteoporosis type: age-related Presence of current pathological fracture: without current pathological fracture Qualified Code(s): M81.0 - Age-related osteoporosis without current pathological fracture (5) Depression Current Visit: No Status: Chronic Assessment and plan: will continue her home ssri. 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 this does not appear to be any changes from prior (7) Anemia Current Visit: No Status: Chronic Assessment and plan: has gone down will continue the iron stable today Qualifiers: Anemia type: unspecified type Qualified Code(s): D64.9 - Anemia, unspecified (8) DVT prophylaxis Current Visit: Yes Status: Acute Assessment and plan: had to stop the lovenox due to thrombocytopenia. her plt count is up a little today will continue to follow. we did not have scds small enough to fit her. will ambulate tid and have her wear leonela hose (9) Physical deconditioning Current Visit: No Status: Acute Assessment and plan: pt ot eval . likely will need several day stays to regain her strength to be able to return home (10) UTI (urinary tract infection) Current Visit: Yes Status: Inactive Assessment and plan: on levaquin, repeat urine does not appear infected Qualifiers: Urinary tract infection type: acute cystitis Hematuria presence: without hematuria Qualified Code(s): N30.00 - Acute cystitis without hematuria (11) Dehydration Current Visit: Yes Status: Acute Assessment and plan: ivf. her blood pressure has been running low had to give a ns bolus. has improved with th ivf, now saline well (12) Acute kidney injury superimposed on chronic kidney disease Current Visit: Yes Status: Acute Assessment and plan: has improved with ivf (13) Elevated brain natriuretic peptide (BNP) level Current Visit: Yes Status: Acute (14) Weakness Current Visit: No Status: Inactive Assessment and plan: pt /ot eval likely due to the pneumonia, uti and dehydration (15) Hypotension Current Visit: Yes Status: Acute Assessment and plan: yesterday her blood pressures were running 80 to 90 sbp. she was dizzy and weak. she did get ivf and bolus of ivf. her lisinopril and beta sanjay were held. this is back in range today. she is back on her bp meds this is due to dehydration from her pneumonia and uti Qualifiers: Hypotension type: hypotension due to hypovolemia Qualified Code(s): I95.89 - Other hypotension; E86.1 - Hypovolemia (16) Thrombocytopenia Current Visit: Yes Status: Acute Assessment and plan: better today after stoping the lovenox. repeat in am (17) Constipation Current Visit: Yes Status: Acute Assessment and plan: will add colace had stool Qualifiers: Constipation type: unspecified constipation type Qualified Code(s): K59.00 - Constipation, unspecified (18) Hypoxemia Current Visit: Yes Status: Acute Assessment and plan: she is requiring oxygen now. will repeat cxr, due to the pneumonia. will repeat cxr. her levaquin was changed to po will start iv levaquin - Subjective Interval history: states she tired and no energy. no pain. she has a cough. had some small amount of yelow sputum. she gets sob with any exertion her o2 sat was going down to 79 80 range with movement and eating. , she feels dizzy and tired., no n/v, no dysuria, no freq, no hematuria. no cp no palp. bowels ok today - Constitutional Vitals: Temp Pulse Resp BP Pulse Ox 98.1 F 78 16 129/64 95 05/01/18 07:14 05/01/18 07:14 05/01/18 07:14 05/01/18 07:14 05/01/18 11:08 General appearance: Present: A&O X 3, no acute distress (No acute distress while lying in bed.) - Head Head exam: Present: atraumatic, normocephalic - Neck Neck exam general surgery: Present: supple, trachea midline - Respiratory Respiratory exam: Present: rhonchi (bilateral bases) - Cardiovascular Cardiovascular exam: Present: RRR, +S1, +S2 - GI/Abdominal GI/Abdominal exam: Present: normal bowel sounds, soft, no peritoneal signs. Absent: distended, guarding, tenderness - Extremities Exam Extremities exam: Present: warm. Absent: mottling (leonela hose bilateral), pedal edema - Skin Skin exam: Present: dry, warm Internal Medicine: Result - Labs CBC & Chem 7: 05/01/18 08:38 05/01/18 08:38 Labs: Short CBC 05/01/18 Range/Units 08:38 WBC 36.1 H* (4.3-11.1) K/mcL Hgb 10.5 L (11.5-15.4) g/dL Hct 32.5 L (35.3-44.9) % Plt Count 96 L (140-400) K/mcL Neutrophils # 3.6 (1.6-8.9) K/mcL BMP 05/01/18 08:38 Sodium 138 Potassium 3.7 Chloride 109 H Carbon Dioxide 22 L BUN 13 Creatinine 0.95 Glucose 113 H Calcium 8.7 - ABG Interpretation ABG results: ABG ABG pH 7.42 pH Units (7.32-7.45) 04/28/18 17:09 ABG pCO2 44 mmHg (35-45) 04/28/18 17:09 ABG pO2 60 mmHg (85-104) L 04/28/18 17:09 ABG O2 Saturation 91 % (95-98) L 04/28/18 17:09 PT/INR, D-dimer PT 12.4 Seconds (9.4-12.1) H 04/29/18 05:15 - Impressions Impressions Chest X-Ray 04/29/18 06:00 IMPRESSION: Chronic bilateral lower lobe airspace opacities have not significantly changed since 06/11/2015 and may reflect areas of chronic scarring. Trace bilateral pleural effusions are unchanged. D/ / 04/29/2018 10:01:41 Ariana Pérez MD / earnold Interpreting Provider: Ariana Pérez MD - VTE Documentation of Mechanical Device: Graduated compression elastic hosiery Consult Discharge Plan - Plan Referrals: Larry White MD [Primary Care Provider] -
[2018-05-01] MEDS: methylPREDNISolone 125 MG/2 ML VIAL IVP SCH (18:10)
[2018-05-02] MEDS: Ipratropium/Albuterol Neb 3 ML IH SCH ×4 (04:17→22:04)
[2018-05-02 05:04] LABS: Basophils % 0.2 %; Eosinophils % 0.1 %; Hemoglobin 9.4 g/dL (11.5-15.4); Immature Granulocytes % 0.6 % (0-4); Lymphocytes # 12.5 K/mcL (0.6-4.6); Lymphocytes % 73.4 %; Mean Corpuscular HGB Conc 32.4 g/dL (31.6-35.5); Mean Corpuscular Hemoglobin 30.2 pg (28.0-33.3); Mean Corpuscular Volume 93.2 fL (83.0-100.0); Mean Platelet Volume 8.4 fL (9.4-12.4); Monocytes # 0.7 K/mcL (0.0-1.3); Monocytes % 3.8 %; Neutrophils # 3.7 K/mcL (1.6-8.9); Red Blood Count 3.11 M/mcL (3.82-4.97); Red Cell Distribution Width 14.3 % (11.5-14.5); Segmented Neutrophils % 21.9 %
[2018-05-02 05:07] LABS: Platelet Count 80 K/mcL (140-400)
[2018-05-02 05:19] LABS: BUN/Creatinine Ratio 18 (6-26); Blood Urea Nitrogen 15 mg/dL (8-23); Calcium 8.5 mg/dL (8.6-10.3); Carbon Dioxide 20 mEq/L (23-29); Chloride 108 mEq/L (98-107); Glucose 140 mg/dL (70-105); Osmolality,Calculated 285 (280-300); Sodium 136 mEq/L (136-145); eGFR For African Americans > 60 (> 60); eGFR For Non-African Americans > 60 (> 60)
[2018-05-02 05:23] LABS: Smudge Cells Present (Not Present)
[2018-05-02 05:24] LABS: Platelet Estimate Slight Decrease (Normal)
[2018-05-02] MEDS: methylPREDNISolone 125 MG/2 ML VIAL IVP SCH ×2 (06:22→17:37)
[2018-05-02] MEDS: FLUoxetine 20 MG CAPSULE PO SCH (09:46)
[2018-05-02] MEDS: Cholecalciferol (D-3) 1,000 UNIT TABLET PO SCH (09:47)
[2018-05-02] MEDS: Multivit/Ca/Min/Fe/FA 1 TAB TABLET PO SCH (09:47)
[2018-05-02] MEDS: Levofloxacin 500 MG/100 ML 500 MG/100 ML BAG IVPB SCH (09:47)
[2018-05-02] MEDS: Aspirin 81 MG TAB.CHEW PO SCH (09:48)
--- NOTE | 2018-05-02 11:20 | Internal Med Progress Note ---
Date of Encounter: 05/02/18 Time of Encounter: 11:18 - Assessment and plan (1) Pneumonia Current Visit: Yes Status: Acute Assessment and plan: she is currently on levaquin po by error now on the iv levaquin since she was not improving and remaining hypoxic,added solumedrol yesterday for wheezing and the peribronchial thickening on cxr. she remains on oxygen but weaning. she is still very weak and deconditioned. will need pt/ot to able to return to home environment blood cultures are negative. her wbc count is decreased today she is afebrile. her hypotension has resolved. failed outpatient treatment for her pneumonia Qualifiers: Pneumonia type: due to unspecified organism Laterality: bilateral Lung location: unspecified part of lung Qualified Code(s): J18.9 - Pneumonia, unspecified organism (2) Chronic lymphocytic leukemia Current Visit: Yes Status: Chronic (3) Hx of CABG Current Visit: Yes Status: Chronic (4) Osteoporosis Current Visit: No Status: Chronic Qualifiers: Osteoporosis type: age-related Presence of current pathological fracture: without current pathological fracture Qualified Code(s): M81.0 - Age-related osteoporosis without current pathological fracture (5) Depression Current Visit: No Status: Chronic Assessment and plan: will continue her home ssri. 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 this does not appear to be any changes from prior (7) Anemia Current Visit: No Status: Chronic Assessment and plan: has gone down a littl e more today.will continue the iron Qualifiers: Anemia type: unspecified type Qualified Code(s): D64.9 - Anemia, unspecified (8) DVT prophylaxis Current Visit: Yes Status: Acute Assessment and plan: had to stop the lovenox due to thrombocytopenia. her plt count is down a little today will continue to follow. we did not have scds small enough to fit her. will ambulate tid and have her wear leonela hose (9) Physical deconditioning Current Visit: No Status: Acute Assessment and plan: pt ot eval . likely will need several day stays to regain her strength to be able to return home (10) UTI (urinary tract infection) Current Visit: Yes Status: Inactive Assessment and plan: on levaquin, repeat urine does not appear infected Qualifiers: Urinary tract infection type: acute cystitis Hematuria presence: without hematuria Qualified Code(s): N30.00 - Acute cystitis without hematuria (11) Dehydration Current Visit: Yes Status: Acute Assessment and plan: ivf. her blood pressure had been running low had to give a ns bolus and ivf. has improved with th ivf, now saline well (12) Acute kidney injury superimposed on chronic kidney disease Current Visit: Yes Status: Acute Assessment and plan: has improved with ivf, now in normal range (13) Elevated brain natriuretic peptide (BNP) level Current Visit: Yes Status: Acute Assessment and plan: will continue to follow had to give ivf due to the hypotension so i am hesitant to give lasix due to the fact her sbp was 80s prior to the ivf (14) Weakness Current Visit: No Status: Inactive Assessment and plan: pt /ot eval likely due to the pneumonia, uti and dehydration (15) Hypotension Current Visit: Yes Status: Acute Assessment and plan: this is back in range today. she is back on her bp meds this is due to dehydration from her pneumonia and uti Qualifiers: Hypotension type: hypotension due to hypovolemia Qualified Code(s): I95.89 - Other hypotension; E86.1 - Hypovolemia (16) Thrombocytopenia Current Visit: Yes Status: Acute Assessment and plan: lower today not getting lovenox. will continue to follow, no active bleeding (17) Constipation Current Visit: Yes Status: Acute Assessment and plan: ok with the colacel Qualifiers: Constipation type: unspecified constipation type Qualified Code(s): K59.00 - Constipation, unspecified (18) Hypoxemia Current Visit: Yes Status: Acute Assessment and plan: she is requiring oxygen now. repeat cxr, showed pleural effusion perbronchial thickening and infliltrat . continue the iv levaquin her wcb is better. cont solumedrol, due nebs and to wean oxygen. avoiding diuresis since she was so hypotensive before - Subjective Interval history: she feels better today. got up from bed and walked in the room o2 went down to 87%, but recovered with rest. she looks better today no pain. she has a cough. had some small amount of yellow sputum. increased in amount since yesterday. she gets sob with any exertion still , she feels dizzy and tired but it is improving., no n/v, no dysuria, no freq, no hematuria. no cp no palp. bowels ok today - Constitutional Vitals: Temp Pulse Resp BP Pulse Ox 97.6 F 65 16 125/60 98 05/02/18 07:30 05/02/18 07:30 05/02/18 07:30 05/02/18 07:30 05/02/18 07:30 General appearance: Present: A&O X 3, no acute distress (No acute distress while lying in bed.) - Head Head exam: Present: atraumatic, normocephalic - Respiratory Respiratory exam: Present: rhonchi (bilateral bases), wheezes (throughout) - Cardiovascular Cardiovascular exam: Present: RRR, +S1. Absent: systolic murmur - Extremities Exam Extremities exam: Present: warm. Absent: pedal edema - Skin Skin exam: Present: dry, warm. Absent: rash Internal Medicine: Result - Labs CBC & Chem 7: 05/02/18 04:46 05/02/18 04:46 Labs: Short CBC 05/02/18 Range/Units 04:46 WBC 17.0 H D (4.3-11.1) K/mcL Hgb 9.4 L (11.5-15.4) g/dL Hct 29.0 L (35.3-44.9) % Plt Count 80 L (140-400) K/mcL Neutrophils # 3.7 (1.6-8.9) K/mcL BMP 05/02/18 04:46 Sodium 136 Potassium 4.0 Chloride 108 H Carbon Dioxide 20 L BUN 15 Creatinine 0.85 Glucose 140 H Calcium 8.5 L - ABG Interpretation ABG results: ABG ABG pH 7.42 pH Units (7.32-7.45) 04/28/18 17:09 ABG pCO2 44 mmHg (35-45) 04/28/18 17:09 ABG pO2 60 mmHg (85-104) L 04/28/18 17:09 ABG O2 Saturation 91 % (95-98) L 04/28/18 17:09 PT/INR, D-dimer PT 12.4 Seconds (9.4-12.1) H 04/29/18 05:15 - Impressions Impressions Chest X-Ray 05/01/18 12:16 IMPRESSION: Increased bilateral pleural effusions as well as bilateral diffuse airspace disease with mid and lower lung predominance, increased since the prior study, likely edema. Pneumonia is also possible. D/ / Araceli Hart Cha, MD / Araceli Hart Cha, MD Interpreting Provider: Araceli Hart Cha, MD - VTE Documentation of Mechanical Device: Graduated compression elastic hosiery Consult Discharge Plan - Plan Referrals: Larry White MD [Primary Care Provider] -
[2018-05-03] MEDS: Ipratropium/Albuterol Neb 3 ML IH SCH ×3 (05:49→16:16)
[2018-05-03] MEDS: methylPREDNISolone 125 MG/2 ML VIAL IVP SCH ×2 (05:49→16:16)
[2018-05-03 05:53] LABS: Basophils # 0.1 K/mcL (0.0-0.2); Basophils % 0.2 %; Hematocrit 29.7 % (35.3-44.9); Hemoglobin 9.6 g/dL (11.5-15.4); Immature Granulocytes % 0.8 % (0-4); Lymphocytes # 27.2 K/mcL (0.6-4.6); Lymphocytes % 74.1 %; Mean Corpuscular HGB Conc 32.3 g/dL (31.6-35.5); Mean Corpuscular Hemoglobin 30.1 pg (28.0-33.3); Mean Corpuscular Volume 93.1 fL (83.0-100.0); Mean Platelet Volume 8.6 fL (9.4-12.4); Monocytes % 4.2 %; Neutrophils # 7.6 K/mcL (1.6-8.9); Nucleated Red Blood Cells 0.1 /100 WBC (0); Platelet Count 107 K/mcL (140-400); Red Blood Count 3.19 M/mcL (3.82-4.97); Red Cell Distribution Width 14.4 % (11.5-14.5); Segmented Neutrophils % 20.7 %
[2018-05-03 06:09] LABS: BUN/Creatinine Ratio 29 (6-26); Blood Urea Nitrogen 26 mg/dL (8-23); Calcium 8.9 mg/dL (8.6-10.3); Carbon Dioxide 23 mEq/L (23-29); Chloride 108 mEq/L (98-107); Glucose 125 mg/dL (70-105); Osmolality,Calculated 294 (280-300); Potassium 4.1 mEq/L (3.5-5.1); Sodium 139 mEq/L (136-145); eGFR For African Americans > 60 (> 60); eGFR For Non-African Americans > 60 (> 60)
[2018-05-03 06:23] LABS: Monocytes # 1.5 K/mcL (0.0-1.3)
[2018-05-03] MEDS: *HR* Enoxaparin 30 MG/0.3 ML SYRINGE SQ SCH (06:40)
[2018-05-03 06:44] LABS: Platelet Estimate Normal (Normal)
[2018-05-03] MEDS ORDERED: Furosemide 20 MG/2 ML VIAL IVP ONE (07:17)
--- NOTE | 2018-05-03 07:21 | Internal Med Progress Note ---
Date of Encounter: 05/03/18 Time of Encounter: 07:19 - Assessment and plan (1) Pneumonia Current Visit: Yes Status: Acute Assessment and plan: Still requiring aggressive treatment for pneumonia with IV Levaquin and now added nebulizer treatments and Solu-Medrol because of wheezing. She is having less sputum production today. Able to wean to room air recently. We still have a long way to go. Qualifiers: Pneumonia type: due to unspecified organism Laterality: bilateral Lung location: unspecified part of lung Qualified Code(s): J18.9 - Pneumonia, unspecified organism (2) Acute congestive heart failure with left ventricular diastolic dysfunction Current Visit: Yes Status: Acute Assessment and plan: Patient had developed hypoxia, hypotension, increased pulmonary vasculature, pleural effusion, elevated BNP which are consistent with congestive heart failure. Echocardiogram shows left ventricular diastolic dysfunction. She has had increase in her weight. She is not obviously edematous lower extremities. Now that her blood pressure is now much improved I will give her a dose of Lasix. (3) Acute kidney injury superimposed on chronic kidney disease Current Visit: Yes Status: Acute Assessment and plan: Renal function is improved. (4) Chronic lymphocytic leukemia Current Visit: Yes Status: Chronic (5) Hx of CABG Current Visit: Yes Status: Chronic Assessment and plan: No angina is noted. However, with elevated BNP, hypoxia, worsening pulmonary status since admission I do believe that she has had diastolic congestive heart failure. She is improving now. (6) Mild cognitive impairment Current Visit: Yes Status: Chronic (7) Elevated brain natriuretic peptide (BNP) level Current Visit: Yes Status: Acute Assessment and plan: BNP is elevated down to 1200. Chest x-ray on my read is consistent with CHF. I will add a dose of Lasix since her blood pressures are now back up. Her weight is also up 4 kg or so. (8) DVT prophylaxis Current Visit: Yes Status: Acute Assessment and plan: Lovenox was held because of thrombocytopenia. She is on LARA hose and ambulation now. No sign of acute DVT. - Subjective Interval history: Patient thinks that if she is feeling better starting yesterday. She told me she is not coughing nearly as much sputum. She is not having any cardiac type chest pain. She is able to walk about 10 feet to get to the bathroom and not gets so short of breath or hypoxic. Her appetite is getting better. She is concerned about the swelling in her lower extremities. Nurses report the patient has been weaned to room air last evening. She does not have to use the bedside commode, she can tolerate getting to the toilet which is only 10 feet or less away. - Constitutional Vitals: Temp Pulse Resp BP Pulse Ox 98.1 F 63 16 132/74 93 05/03/18 07:16 05/03/18 07:16 05/03/18 07:16 05/03/18 07:16 05/03/18 07:16 General appearance: Present: A&O X 3, no acute distress (No acute distress while lying in bed.) - Respiratory Additional comments: Scattered crackles in all lung coto particularly the lower bases. Intermittent slight end-expiratory wheeze heard in the right midlung field. No orthopnea. No dyspnea in bed. - Cardiovascular Cardiovascular exam: Present: RRR, +S1, +S2, systolic murmur (1/6 mid to late systolic murmur heard at the left sternal border) - GI/Abdominal GI/Abdominal exam: Present: soft. Absent: mass, tenderness - Extremities Exam Additional comments: She has elastic stockings on. I do not feel she has a significant edema, but she is worried because she said they looked big and puffy. She thinks her knees look swollen also. There is no calf tenderness. Internal Medicine: Result - Labs CBC & Chem 7: 05/03/18 05:35 05/03/18 05:35 Labs: Short CBC 05/03/18 Range/Units 05:35 WBC 36.7 H* D (4.3-11.1) K/mcL Hgb 9.6 L (11.5-15.4) g/dL Hct 29.7 L (35.3-44.9) % Plt Count 107 L (140-400) K/mcL Neutrophils # 7.6 (1.6-8.9) K/mcL BMP 05/03/18 05:35 Sodium 139 Potassium 4.1 Chloride 108 H Carbon Dioxide 23 BUN 26 H Creatinine 0.89 Glucose 125 H Calcium 8.9 Labs have been reviewed. White blood cell count going back up now. Platelet count over 100,000. Electrolytes and renal function are stable. The BNP is now elevated more to 1200. - ABG Interpretation ABG results: ABG ABG pH 7.42 pH Units (7.32-7.45) 04/28/18 17:09 ABG pCO2 44 mmHg (35-45) 04/28/18 17:09 ABG pO2 60 mmHg (85-104) L 04/28/18 17:09 ABG O2 Saturation 91 % (95-98) L 04/28/18 17:09 PT/INR, D-dimer PT 12.4 Seconds (9.4-12.1) H 04/29/18 05:15 - Diagnostic Studies Chest x-ray Additional comments: I reviewed the chest x-ray done a few days ago shows increased vascular congestion/cephalization of pulmonary vasculature. Bilateral pleural effusions are noted. - VTE Documentation of Mechanical Device: Graduated compression elastic hosiery Consult Discharge Plan - Plan Referrals: Larry White MD [Primary Care Provider] -
[2018-05-03] MEDS: Cholecalciferol (D-3) 1,000 UNIT TABLET PO SCH (09:27)
[2018-05-03] MEDS: Multivit/Ca/Min/Fe/FA 1 TAB TABLET PO SCH (09:27)
[2018-05-03] MEDS: Aspirin 81 MG TAB.CHEW PO SCH (09:28)
[2018-05-03] MEDS: FLUoxetine 20 MG CAPSULE PO SCH (09:28)
[2018-05-03] MEDS: Levofloxacin 500 MG/100 ML 500 MG/100 ML BAG IVPB SCH (09:33)
[2018-05-03 15:43] VITALS: BP 134/65
[2018-05-04] MEDS ORDERED: LEVOFLOXACIN 750 MG/150 ML IVPB SCH (09:00)
--- NOTE | 2018-05-04 09:33 | Discharge Summary ---
- NOTES TO OUTPATIENT PROVIDER Notes to Outpatient Provider: Patient was transferred from acute bed to a swing bed at [facility] for ongoing therapies for deconditioning Date of Encounter: 05/03/18 Time of Encounter: 09:42 - Discharge Diagnosis (1) Pneumonia Priority: Primary Status: Acute Comments: Patient was admitted she had failed outpatient treatment for pneumonia in the ER and in my office. She was admitted and placed on Levaquin intravenously. She has leukocytosis, fever, difficulties with with walking and had increased confusion. Clinically she improved from the pneumonia. However she is having difficulties with her ADLs and will be transferred to a swing bed for ongoing skilled care in addition to therapies. Qualifiers: Pneumonia type: due to unspecified organism Laterality: bilateral Lung location: unspecified part of lung Qualified Code(s): J18.9 - Pneumonia, unspecified organism (2) Acute congestive heart failure with left ventricular diastolic dysfunction Priority: Secondary Status: Acute Comments: During the hospital stay she had developed hypoxia, increased pulmonary vascular changes on her chest x-ray as well as pleural effusions. Had increase in her BNP to about 1200. Presumed to be congestive heart failure from diastolic dysfunction. She was given Lasix and clinically improved well. Her echocardiogram showed 60% ejection fraction with diastolic dysfunction. Her monitor continued to show normal sinus rhythm. She had no cardiac type chest pain with this. She will be followed closely in swing bed status to be sure there is resolution. (3) Acute kidney injury superimposed on chronic kidney disease Priority: Secondary Status: Acute Comments: On admissions patient's creatinine bumped up a bit with her acute illness and decreased by mouth intake. Return to her baseline. (4) Chronic lymphocytic leukemia Priority: Secondary Status: Chronic Comments: She has CLL and typically wet blood cell count is 40-60,000. She did have increase in this during hospital stay. At one time her count dropped to about 19,000. She typically decide treatment for CLL. (5) Hx of CABG Priority: Secondary Status: Chronic Comments: Patient had no angina but she did have pulmonary vascular congestion consistent with diastolic CHF with preserved EF. She improved with diuresis. (6) Mild cognitive impairment Priority: Secondary Status: Chronic Comments: Chronically she has some mild cognitive impairment and dementia appropriate for her age. However during her acute stay she had increase in confusion and anxiety. She difficulties maintaining her ADLs with balance and gait. These improved during hospital stay. She appears be at her baseline cognitively. (7) Elevated brain natriuretic peptide (BNP) level Priority: Secondary Status: Acute Comments: She had elevated BNP consistent with mild diastolic congestive heart failure. Improved with diuresis. No signs of acute MS. (8) DVT prophylaxis Priority: Primary Status: Inactive Hospital course: Ms. Vega is a 82 year old female with known history of hypertension, status post CABG, mild cognitive changes was admitted to the hospital having failed outpatient treatment for pneumonia. This is the diagnoses as above. She was transferred to a swing bed for ongoing PT and OT and skilled care. Discharge discussed with: other - Time Spent with Patient Total time spent providing and/or coordinating discharge services: - Discharge Medications Home Medications: FLUoxetine HCl [Prozac] 40 mg PO DAILY 09/24/15 [History] Furosemide [Lasix] 40 mg PO BID 09/24/15 [History] Lisinopril [Zestril] 2.5 mg PO DAILY 09/24/15 [History] Metoprolol [Lopressor] 12.5 mg PO BID 09/24/15 [History] Omeprazole [PriLOSEC] 20 mg PO DAILY 09/24/15 [History] Pravastatin Sodium [Pravachol] 20 mg PO DAILY 09/24/15 [History] Ferrous Sulfate [Iron] 325 mg PO DAILY 01/23/16 [History] Acetaminophen [Tylenol] 325 mg PO Q6HR PRN 04/23/18 [History] Albuterol Sulfate [Albuterol Inhaler] 2 puff IH Q6HR PRN #1 inhaler 04/23/18 [Rx ] Aspirin 81 mg PO DAILY 04/23/18 [History] Calcium Carbonate/Vitamin D2 [Ra Oyster Shell-Vitamin D Tab] 1 each PO DAILY [History] Levofloxacin [Levaquin] 750 mg PO AD #5 tablet 04/23/18 [Rx] Multivitamin [One Daily Essential] 1 each PO DAILY 04/23/18 [History] Nitroglycerin [Nitrostat] 0.4 mg SL Q5M PRN MDD 3 tab 04/23/18 [History] Docusate [Colace] 100 mg PO BID PRN capsule 05/04/18 [Rx] Enoxaparin [Lovenox] 30 mg SQ 0600 syringe 05/04/18 [Rx] Ipratropium/Albuterol Neb [Duoneb] 3 ml IH QIDR inhsol 05/04/18 [Rx] methylPREDNISolone [Solu-MEDROL] 80 mg IVP Q12HR vial 05/04/18 [Rx] Allergies/Adverse Reactions: 3 Allergy/AdvReac Type Severity Reaction Status Date / Time Penicillins [PCN] Allergy Hives Verified 04/23/18 06:19 Sulfa (Sulfonamide Allergy Hives Verified 04/23/18 06:19 Antibiotics) Date of admission: 04/29/18 02:27 Primary care physician: Larry White MD Discharging clinician: Larry White Anticipated date of discharge: 05/03/18 - Constitutional Vitals: Temp Pulse Resp BP Pulse Ox 97.7 F 74 16 134/65 95 05/03/18 15:42 05/03/18 15:42 05/03/18 15:42 05/03/18 15:42 05/03/18 15:42 General appearance: Present: A&O X 3, no acute distress (No acute distress while lying in bed.) - Respiratory Additional comments: Scattered crackles particularly at the bases heard. No respiratory distress. No orthopnea. - Cardiovascular Cardiovascular exam: Present: RRR, +S1, +S2 - Extremities Exam Extremities exam: Absent: calf tenderness, pedal edema - Patient Status Disposition: Transfer Hospital Swing Bed Condition: Serious - Discharge Instructions Follow Up With: Larry White MD [Primary Care Provider] - - VTE Documentation of Mechanical Device: Graduated compression elastic hosiery
== END 2018-05-03 17:29 | disposition other institution (70) | DRG 193 ==
LOC: INPGRE 15:39 → EMEROOGRE 15:39 → INPGRE 18:26
PROVIDERS: ADMIT Family Medicine; ATTEND Family Medicine

== ENCOUNTER 2018-05-03 16:02 | Inpatient (IN) ==
[2018-05-03] MEDS ORDERED: Nitroglycerin 0.4 MG TAB.SUBL SL PRN (17:39)
[2018-05-03] MEDS ORDERED: Acetaminophen 325 MG TABLET PO PRN (17:39)
[2018-05-03] MEDS ORDERED: Albuterol 2.5 MG/3 ML NEBULIZER IH PRN (17:44)
[2018-05-03] MEDS ORDERED: Naloxone 0.4 MG/ML INJ IVP PRN (17:47)
[2018-05-03] MEDS: methylPREDNISolone 125 MG/2 ML VIAL IVP SCH (17:56)
[2018-05-03] MEDS: Ipratropium/Albuterol Neb 3 ML IH SCH (20:13)
[2018-05-04] MEDS: Ipratropium/Albuterol Neb 3 ML IH SCH ×4 (04:26→21:03)
[2018-05-04 06:17] LABS: Basophils # 0.2 K/mcL (0.0-0.2); Basophils % 0.3 %; Hematocrit 31.4 % (35.3-44.9); Hemoglobin 10.4 g/dL (11.5-15.4); Immature Granulocytes % 1.3 % (0-4); Lymphocytes # 50.7 K/mcL (0.6-4.6); Lymphocytes % 79.9 %; Mean Corpuscular HGB Conc 33.1 g/dL (31.6-35.5); Mean Corpuscular Hemoglobin 30.2 pg (28.0-33.3); Mean Corpuscular Volume 91.3 fL (83.0-100.0); Monocytes % 3.4 %; Neutrophils # 9.6 K/mcL (1.6-8.9); Nucleated Red Blood Cells 0.1 /100 WBC (0); Platelet Count 151 K/mcL (140-400); Red Blood Count 3.44 M/mcL (3.82-4.97); Red Cell Distribution Width 14.8 % (11.5-14.5); Segmented Neutrophils % 15.1 %
[2018-05-04 06:18] LABS: Monocytes # 2.2 K/mcL (0.0-1.3)
[2018-05-04 06:25] LABS: BUN/Creatinine Ratio 31 (6-26); Blood Urea Nitrogen 31 mg/dL (8-23); Calcium 8.9 mg/dL (8.6-10.3); Carbon Dioxide 24 mEq/L (23-29); Chloride 107 mEq/L (98-107); Glucose 113 mg/dL (70-105); Osmolality,Calculated 293 (280-300); Potassium 4.7 mEq/L (3.5-5.1); Sodium 138 mEq/L (136-145); eGFR For African Americans > 60 (> 60); eGFR For Non-African Americans 52 (> 60)
[2018-05-04] MEDS: methylPREDNISolone 125 MG/2 ML VIAL IVP SCH (06:25)
[2018-05-04 06:31] LABS: Reactive Lymphocytes Present (Not Present); Smudge Cells Present (Not Present)
[2018-05-04 06:32] LABS: Macrocytosis Present (Not Present)
[2018-05-04 06:33] LABS: Platelet Estimate Normal (Normal)
[2018-05-04] MEDS: FLUoxetine 20 MG CAPSULE PO SCH (08:24)
[2018-05-04] MEDS: Cholecalciferol (D-3) 1,000 UNIT TABLET PO SCH (08:25)
[2018-05-04] MEDS: Multivit/Ca/Min/Fe/FA 1 TAB TABLET PO SCH (08:25)
[2018-05-04] MEDS: Aspirin 81 MG TAB.CHEW PO SCH (08:25)
[2018-05-04] MEDS ORDERED: levoFLOXacin 500 MG TABLET PO SCH (09:00)
[2018-05-04] MEDS ORDERED: Levofloxacin 500 MG/100 ML 500 MG/100 ML BAG IVPB SCH (09:00)
--- NOTE | 2018-05-04 10:00 | Internal Med Progress Note ---
Date of Encounter: 05/04/18 Time of Encounter: 09:57 - Assessment and plan (1) Physical deconditioning Current Visit: Yes Status: Acute Assessment and plan: Patient has been transferred to a swing bed from an acute bed because of physical deconditioning. She has had difficulty with ambulation and dyspnea due to her pneumonia treatment. She will have PT and OT. No acute symptoms of troubles noted during therapy. (2) Pneumonia Current Visit: No Status: Acute Assessment and plan: Patient continues with IV Levaquin for treatment for her pneumonia. On auscultation her lungs are clear today and markedly improved since her Lasix use for diuresis yesterday. Follow-up chest x-ray has been planned. Unbeknownst to the physicians, she was switched from IV Levaquin to oral Levaquin. I would like to be sure she gets 5-7 days of intravenous Levaquin. Qualifiers: Pneumonia type: due to unspecified organism Laterality: bilateral Lung location: unspecified part of lung Qualified Code(s): J18.9 - Pneumonia, unspecified organism (3) Acute congestive heart failure with left ventricular diastolic dysfunction Current Visit: Yes Status: Acute Assessment and plan: The past few days she has developed increased pulmonary vascular congestion, pleural effusion. These have clinically cleared on auscultation today after IV Lasix yesterday. She has preserved ejection fraction of 60%. I will chest ray ordered. We will resume her oral Lasix, but wheeze 40 twice a day rather than 40 morning 20 in the afternoon. (4) Hx of CABG Current Visit: No Status: Chronic Assessment and plan: No angina noted. Has had CHF and clinically now improved after diuresis with IV Lasix (5) Mild cognitive impairment Current Visit: Yes Status: Chronic Assessment and plan: Chronically she has mild cognitive impairment and anxiety. She seemed to have gotten worse with her pneumonia, now improving. (6) Elevated brain natriuretic peptide (BNP) level Current Visit: Yes Status: Acute Assessment and plan: Elevated BNP as well as physical and radiographic signs of congestive heart failure. Much improved with diuresis with IV Lasix. BNP is still in the 1200 range though. - Subjective Interval history: Patient states that she feels much better. She does not hear any wheezing today. She was given IV Lasix yesterday and appeared to diurese well. She denies any cardiac symptoms. She thinks she is getting stronger. No complaints with physical therapy. - Constitutional Vitals: Temp Pulse Resp BP Pulse Ox 97.9 F 78 16 142/70 90 05/04/18 08:53 05/04/18 08:53 05/04/18 08:53 05/04/18 08:53 05/04/18 08:53 General appearance: Present: no acute distress - Respiratory Respiratory exam: Present: decreased breath sounds, CTAB. Absent: rales, respiratory distress, wheezes - Cardiovascular Cardiovascular exam: Present: RRR, +S1, +S2 - Extremities Exam Extremities exam: Absent: calf tenderness, pedal edema Internal Medicine: Result - Labs CBC & Chem 7: 05/04/18 05:50 05/04/18 05:50 Labs: Short CBC 05/04/18 Range/Units 05:50 WBC 63.4 H* D (4.3-11.1) K/mcL Hgb 10.4 L (11.5-15.4) g/dL Hct 31.4 L (35.3-44.9) % Plt Count 151 (140-400) K/mcL Neutrophils # 9.6 H (1.6-8.9) K/mcL BMP 05/04/18 05:50 Sodium 138 Potassium 4.7 Chloride 107 Carbon Dioxide 24 BUN 31 H Creatinine 1.01 Glucose 113 H Calcium 8.9 Labs have been reviewed. Her white count jumped up to 63,000, but this is basically at her baseline with CLL. Her electrolytes and renal function are normalized or stable. - VTE Documentation of Mechanical Device: Graduated compression elastic hosiery Consult Discharge Plan - Plan Referrals: Larry White MD [Primary Care Provider] -
[2018-05-04] MEDS: MethylPREDNISolone 40 MG/ML VIAL IVP SCH (16:36)
[2018-05-04] MEDS: Furosemide 40 MG TABLET PO SCH (16:36)
[2018-05-05] MEDS: MethylPREDNISolone 40 MG/ML VIAL IVP SCH ×2 (05:50→17:58)
[2018-05-05] MEDS: Ipratropium/Albuterol Neb 3 ML IH SCH ×4 (05:50→20:50)
[2018-05-05] MEDS: Aspirin 81 MG TAB.CHEW PO SCH (08:33)
[2018-05-05] MEDS: Levofloxacin 750 MG/150 ML 750 MG/150 ML BAG IVPB SCH (08:33)
[2018-05-05] MEDS: Furosemide 40 MG TABLET PO SCH ×2 (08:34→17:58)
[2018-05-05] MEDS: FLUoxetine 20 MG CAPSULE PO SCH (08:34)
[2018-05-05] MEDS: Cholecalciferol (D-3) 1,000 UNIT TABLET PO SCH (08:34)
[2018-05-05] MEDS: Multivit/Ca/Min/Fe/FA 1 TAB TABLET PO SCH (08:34)
--- NOTE | 2018-05-05 10:29 | Internal Med Progress Note ---
Date of Encounter: 05/05/18 Time of Encounter: 10:27 - Assessment and plan (1) Pneumonia Current Visit: Yes Status: Acute Assessment and plan: improving. continue Levaquin. Qualifiers: Pneumonia type: due to unspecified organism Laterality: bilateral Lung location: unspecified part of lung Qualified Code(s): J18.9 - Pneumonia, unspecified organism (2) Mild cognitive impairment Current Visit: Yes Status: Chronic Assessment and plan: improving after being treated for PNA. (3) Acute congestive heart failure with left ventricular diastolic dysfunction Current Visit: Yes Status: Acute Assessment and plan: improving. continue PO lasix. monitor for decompensation. - Time Spent With Patient less than 15 minutes - Subjective Interval history: participating well with therapy. standing with walker and maintaining O2 sats > 92%. denies SOB, chest pain, fever, chills, NVD. maintaining appetite and hydration. - Constitutional Vitals: Temp Pulse Resp BP Pulse Ox 97.8 F 76 18 144/79 93 05/04/18 20:33 05/04/18 20:33 05/04/18 20:33 05/04/18 20:33 05/04/18 20:33 General appearance: Present: A&O X 3, no acute distress - Head Head exam: Present: atraumatic, normocephalic - Eye Eye exam: Present: PERRL, conjuntiva pink, sclera anicteric Pupils: Present: PERRL - Neck Neck exam general surgery: Present: supple, trachea midline. Absent: lymphadenopathy - Respiratory Respiratory exam: Present: CTAB. Absent: accessory muscle use, rales, rhonchi, wheezes - Cardiovascular Cardiovascular exam: Present: RRR, +S1, +S2. Absent: diastolic murmur, gallop, rubs, systolic murmur - GI/Abdominal GI/Abdominal exam: Present: normal bowel sounds, soft, no peritoneal signs. Absent: distended, tenderness - Extremities Exam Extremities exam: Present: warm, radial pulses palpable and symmetrical. Absent : calf tenderness, cyanotic, pedal edema - Neurological Exam Neurological exam: Present: CN II-XII intact, oriented X3, no focal deficits. Absent: pronater drift, facial droop, speech deficit - Skin Skin exam: Present: dry, intact Internal Medicine: Result - Labs CBC & Chem 7: 05/04/18 05:50 05/04/18 05:50 - Impressions Impressions Chest X-Ray 05/04/18 09:56 IMPRESSION: Interval improvement in perihilar opacification, likely resolving perihilar edema. Persistent bilateral effusions with bibasilar volume loss. D/ / Raf Naqvi MD / Raf Naqvi MD Interpreting Provider: Raf Naqvi MD - VTE Documentation of Mechanical Device: Graduated compression elastic hosiery Consult Discharge Plan - Plan Referrals: Larry White MD [Primary Care Provider] -
[2018-05-06] MEDS: MethylPREDNISolone 40 MG/ML VIAL IVP SCH (05:56)
[2018-05-06] MEDS: Ipratropium/Albuterol Neb 3 ML IH SCH ×2 (05:56→10:24)
[2018-05-06] MEDS: Aspirin 81 MG TAB.CHEW PO SCH (07:48)
[2018-05-06] MEDS: Multivit/Ca/Min/Fe/FA 1 TAB TABLET PO SCH (07:49)
[2018-05-06] MEDS: Cholecalciferol (D-3) 1,000 UNIT TABLET PO SCH (07:49)
[2018-05-06] MEDS: FLUoxetine 20 MG CAPSULE PO SCH (07:49)
[2018-05-06] MEDS: Furosemide 40 MG TABLET PO SCH ×2 (07:49→15:28)
[2018-05-06] MEDS ORDERED: Ipratropium/Albuterol Neb 3 ML IH PRN (10:44)
--- NOTE | 2018-05-06 10:49 | Internal Med Progress Note ---
Date of Encounter: 05/06/18 Time of Encounter: 10:47 - Assessment and plan (1) Physical deconditioning Current Visit: Yes Status: Acute Assessment and plan: She is improving her ADLs and ambulation. We want her to have her tennis shoes available for therapy to be sure she is safe using those at home. She should be stable to go home tomorrow. (2) Pneumonia Current Visit: Yes Status: Acute Assessment and plan: Pulmonary status is markedly improved. Follow-up chest x-ray for today. Chronically elevated white blood cell count. We will transition her from IV Solu-Medrol to prednisone. Will make her breathing treatments when necessary and see how she does with them not being scheduled. Qualifiers: Pneumonia type: due to unspecified organism Laterality: bilateral Lung location: unspecified part of lung Qualified Code(s): J18.9 - Pneumonia, unspecified organism (3) Acute congestive heart failure with left ventricular diastolic dysfunction Current Visit: Yes Status: Acute Assessment and plan: Clinically she is markedly improved. Follow-up chest x-ray has been ordered. (4) Hx of CABG Current Visit: No Status: Chronic Assessment and plan: No angina is noted. (5) Mild cognitive impairment Current Visit: Yes Status: Chronic Assessment and plan: She seems be doing better and less anxious now that she has improved medically (6) Elevated brain natriuretic peptide (BNP) level Current Visit: Yes Status: Acute - Subjective Interval history: Patient states that she is doing much better. She feels stable on her feet. No troubles with appetite or bowel or bladder elimination. She denies a cardiac type chest pain or dyspnea. Physical therapy thinks that she is markedly improving. They agree that she should not be wearing her loafers and we have asked that she have her tennis shoes brought in for therapy. - Constitutional Vitals: Temp Pulse Resp BP Pulse Ox 97.4 F L 62 16 134/69 95 05/06/18 07:21 05/06/18 07:21 05/06/18 07:21 05/06/18 07:21 05/06/18 07:21 General appearance: Present: A&O X 3, no acute distress - Respiratory Additional comments: Few crackles at the bases. No respiratory distress. - Cardiovascular Cardiovascular exam: Present: RRR, +S1, +S2 - Extremities Exam Extremities exam: Absent: pedal edema Internal Medicine: Result - Labs CBC & Chem 7: 05/04/18 05:50 05/04/18 05:50 - VTE Documentation of Mechanical Device: Graduated compression elastic hosiery Consult Discharge Plan - Plan Referrals: Larry White MD [Primary Care Provider] -
--- NOTE | 2018-05-06 21:39 | Discharge Summary ---
- NOTES TO OUTPATIENT PROVIDER Notes to Outpatient Provider: #1. Patient is on a taper of prednisone having had IV Solu-Medrol in the hospital Date of Encounter: 05/07/18 Time of Encounter: 07:30 - Discharge Diagnosis (1) Physical deconditioning Priority: Primary Status: Acute Comments: Patient was admitted to the hospital having failed outpatient treatment for pneumonia in the ER and at follow up in the office patient was still symptomatic , difficulty with ambulation and had increased confusion. She is admitted to the hospital, was placed on intravenous Levaquin. After improving from her acute pneumonia and congestive heart failure, she was deconditioned and weak and needed improvement and ADLs prior to going home. That is when she was transferred to a swing bed. She had PT and OT and did well. By time of discharge she was on room air, ambulatory with a walker, able to maintain her ADLs in a safe fashion to go home today. (2) Pneumonia Priority: Secondary Status: Acute Comments: Patient was admitted to the hospital having failed outpatient treatment for pneumonia in the ER and at follow up in the office patient was still symptomatic , difficulty with ambulation and had increased confusion. She is admitted to the hospital, was placed on intravenous Levaquin. Blood cultures were negative. She had no sputum for culture. She had elevated white blood cell count because of her history of CLL. During the stay she did develop bronchospasm and nebulizers and IV site Medrol was added. By day of discharge her lungs were essentially clear except for a few crackles in the bases. She was weaned to room air. She had been transferred from acute bed to swing bed because of weakness and deconditioning. She is now ready to be discharged to home in much improved and stable condition. Qualifiers: Pneumonia type: due to unspecified organism Laterality: bilateral Lung location: unspecified part of lung Qualified Code(s): J18.9 - Pneumonia, unspecified organism (3) Acute congestive heart failure with left ventricular diastolic dysfunction Priority: Secondary Status: Acute Comments: During her hospital stay for being treated for pneumonia she developed congestive heart failure was likely diastolic congestive heart failure and she was treated with Lasix and improved nicely. She had no angina. Echocardiogram showed 60% ejection fraction and maintained good LV function. At time of discharge she was back to using Lasix twice a day as her chronic medication. Chest pressure improvement. Her BNP peaked at approximately 1200 (4) Hx of CABG Priority: Secondary Status: Chronic Comments: Chronic history of CAD and history of CABG many years ago. Echocardiogram showed diastolic dysfunction but good ejection fraction. She had no angina during the hospital stay. She did have CHF as above. (5) Mild cognitive impairment Priority: Secondary Status: Chronic Comments: The patient has mild cognitive impairment. However she is able take care of herself, drives a car, goes to [employer] and does her grocery shopping etc. During acute visit she did have increase in anxiety and was not sure if things during her acute infection. She is now back to her baseline (6) Elevated brain natriuretic peptide (BNP) level Priority: Secondary Status: Acute Comments: She had elevated BNP consistent with congestive heart failure. BNP peaked at approximately 1200. Echocardiogram was done as above. CHF cleared and patient was discharged on Lasix. (7) Chronic lymphocytic leukemia Priority: Secondary Status: Chronic Comments: Patient is history of CLL and sees Dr. Stroud in [place]. She does not require any intervention or treatment for this. Her white blood cell count is typically in the 40,000-60,000 range. She had no complications of this during her hospital stay. Hospital course: Ms. Vega is a 82 year old female with a history of CAD/CABG, CLL and hypertension. She is first admitted to hospital with pneumonia and developed congestive heart failure. She was then transferred to a swing bed for deconditioning. She has done well with her therapies. Diagnoses as above. It is safe to send her home today. - Time Spent with Patient Total time spent providing and/or coordinating discharge services: - Discharge Medications Prescriptions: predniSONE [PredniSONE] 20 mg PO DAILY #10 tablet Home Medications: FLUoxetine HCl [Prozac] 40 mg PO DAILY 09/24/15 [History] Furosemide [Lasix] 40 mg PO BID 09/24/15 [History] Lisinopril [Zestril] 2.5 mg PO DAILY 09/24/15 [History] Metoprolol [Lopressor] 12.5 mg PO BID 09/24/15 [History] Omeprazole [PriLOSEC] 20 mg PO DAILY 09/24/15 [History] Pravastatin Sodium [Pravachol] 20 mg PO DAILY 09/24/15 [History] Ferrous Sulfate [Iron] 325 mg PO DAILY 01/23/16 [History] Acetaminophen [Tylenol] 325 mg PO Q6HR PRN 04/23/18 [History] Aspirin 81 mg PO DAILY 04/23/18 [History] Calcium Carbonate/Vitamin D2 [Ra Oyster Shell-Vitamin D Tab] 1 each PO DAILY [History] Multivitamin [One Daily Essential] 1 each PO DAILY 04/23/18 [History] Nitroglycerin [Nitrostat] 0.4 mg SL Q5M PRN MDD 3 tab 04/23/18 [History] Docusate [Colace] 100 mg PO BID PRN capsule 05/04/18 [Rx] predniSONE [PredniSONE] 20 mg PO DAILY #10 tablet 05/06/18 [Rx] Allergies/Adverse Reactions: 3 Allergy/AdvReac Type Severity Reaction Status Date / Time Penicillins [PCN] Allergy Hives Verified 04/23/18 06:19 Sulfa (Sulfonamide Allergy Hives Verified 04/23/18 06:19 Antibiotics) Date of admission: 05/03/18 17:32 Primary care physician: Larry White MD Consults: 05/03/18 17:48 Consult to Occupational Therapy [CONS] Routine Comment: eval and treat Reason for Consult: deconditioning Does patient have active BEDREST order?: No Is patient medically & hemodynamically stable?: Yes Patient assessed for mobility or mobilized this visit?: No Consult to Physical Therapy [CONS] Routine Comment: eval and treat Reason for Consult: deconditiong Does patient have active BEDREST order?: No Is patient medically & hemodynamically stable?: Yes Patient assessed for mobility or mobilized this visit?: Yes Consult to Recreational Therapy [CONS] Routine Comment: Consult to Anode Rebuilder [CONS] Routine Reason for SW Consult: discharge planning Discharging clinician: Larry White Anticipated date of discharge: 05/07/18 - Constitutional Vitals: Temp Pulse Resp BP Pulse Ox 98.0 F 68 16 127/65 94 05/06/18 19:36 05/06/18 19:36 05/06/18 19:36 05/06/18 19:36 05/06/18 19:36 General appearance: Present: A&O X 3, no acute distress - Respiratory Respiratory exam: Present: CTAB - Cardiovascular Cardiovascular exam: Present: RRR, +S1, +S2 - Extremities Exam Extremities exam: Absent: calf tenderness, pedal edema - Patient Status Disposition: Home, Self-Care Condition: Good Functional capacity at discharge: uses cane/walker Overall status at discharge: patient is progressing back to baseline - Discharge Instructions Follow Up With: Larry White MD [Primary Care Provider] - 05/12/18 10:30 am - Diet and Activity Activity: ambulate only with your walker, as per physical therapy, increase activity as tolerated Diet: low salt diet - VTE Documentation of Mechanical Device: Graduated compression elastic hosiery
[2018-05-07 07:23] VITALS: BP 145/64
[2018-05-07] MEDS: FLUoxetine 20 MG CAPSULE PO SCH (07:51)
[2018-05-07] MEDS: Furosemide 40 MG TABLET PO SCH (07:51)
[2018-05-07] MEDS: Aspirin 81 MG TAB.CHEW PO SCH (07:51)
[2018-05-07] MEDS: Multivit/Ca/Min/Fe/FA 1 TAB TABLET PO SCH (07:51)
[2018-05-07] MEDS: Cholecalciferol (D-3) 1,000 UNIT TABLET PO SCH (07:51)
[2018-05-07] MEDS ORDERED: predniSONE 20 MG TABLET PO SCH (09:00)
[2018-05-07] MEDS: Levofloxacin 750 MG/150 ML 750 MG/150 ML BAG IVPB SCH (09:39)
== END 2018-05-07 15:26 | disposition home or self-care (01) | DRG 945 ==
LOC: INPGRE 17:32
PROVIDERS: ADMIT Family Medicine; ATTEND Family Medicine

== ENCOUNTER 2018-08-30 10:17 | Inpatient (IN) ==
--- NOTE | 2018-08-30 10:43 | Emergency Department Note ---
Disposition Clinical Impression: Pneumonia, CLL (chronic lymphocytic leukemia) Disposition: Admitted As Inpatient Condition: Serious Instructions: Community-acquired Pneumonia (ED) Referrals: Larry White MD [Primary Care Provider] - Forms: ED Satisfaction Letter Time of Disposition: 13:39 General Adult HPI - General Chief complaint: ED Neuro Symptoms/Deficit Stated complaint: weakness Time Seen by Provider: 08/30/18 10:40 Nursing Notes Reviewed: Yes Vital Signs Reviewed: Yes - History of Present Illness HPI Narrative: Patient presents today with CC of: weak, dizzy short of breath Patient describes issue began around 8:00 this morning when she woke up she said she felt weak and dizzy and also has been having some shortness of breath. Patient states the shortness of breath has been going on for 3 weeks and she was recently diagnosed with some lung problems and started seeing a lung specialist. She was started on an inhaler. Patient has a history of pneumonia and some sort of lung damage according to the family. Patient denies any sputum production but she has had occasional cough and difficulty breathing. She denies any hemoptysis leg swelling or tenderness. Patient says she generally feels somewhat weak and when getting up to get in her walker today felt dizzy. She denies headache rash or fever. She has not had any vomiting or diarrhea. She had a bowel movement yesterday and has had normal urination. Patient does have a history of CLL that has been an active after her chemotherapy approximately 13 years ago however reportedly at his come back. Patient and family are apparently considering getting more chemotherapy. Patient did not need any breakfast today she has not taken her medications. She has been eating okay but has not eaten very much and last night had milk. Butter sandwich and some pudding. She has not had a recent exposure to anybody sick. Patient denies any earache nasal discharge. Denies hemoptysis leg swelling or tenderness. Patient has not had any recent falls. Patient sometimes when she gets up quickly she feels dizzy and lightheaded. She is able to move all extremities without any problem but just generally feels weak. no falls or head trauma. Pain Scale: 0 - Related Data Home Medications Medication Instructions Recorded Confirmed Furosemide [Lasix] 40 mg PO BID 09/24/15 08/30/18 Lisinopril [Zestril] 2.5 mg PO DAILY 09/24/15 08/30/18 Metoprolol [Lopressor] 12.5 mg PO BID 09/24/15 08/30/18 Omeprazole [PriLOSEC] 20 mg PO DAILY 09/24/15 08/30/18 Ferrous Sulfate [Iron] 325 mg PO DAILY 01/23/16 08/30/18 Aspirin 81 mg PO DAILY 04/23/18 08/30/18 Multivitamin [One Daily Essential] 1 each PO DAILY 04/23/18 08/30/18 Nitroglycerin [Nitrostat] 0.4 mg SL Q5M PRN MDD 3 tab 04/23/18 08/30/18 Allergies Allergy/AdvReac Type Severity Reaction Status Date / Time Penicillins [PCN] Allergy Hives Verified 04/23/18 06:19 Sulfa (Sulfonamide Allergy Hives Verified 04/23/18 06:19 Antibiotics) All systems ED: reviewed and negative except as stated. 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 The patien t's medications, allergies, and medical history was reviewed. Family, Social & Surg histories were reviewed and are not relevant except as noted above in the history of present illness, or below in the respective specific section. I have reviewed and agree with all vital signs synchronously available in EMR at the time of this dictation. Times documented are the time of computer entry, are not necessarily the time the event occurred. At least 10 systems reviewed with patient or surrogate during physical exam and are otherwise negative. Physical EXAM: General ~ Constitutional: Conscious & cooperative , generally frail elderly appearance Head: NCAT , no scalp tenderness or lesions , no step off or gross evidence of skull abnormality / trauma Eyes: Sclera white , conjunctiva clear , PERRL 2mm, non-icteric, disks flat / no papilledema ENT : L Tympanic membrane normal color and landmarks R Tympanic membrane normal color and landmarks Canals are clear without significant drainage , no obstruction or vesicles , pinna and tragus non tender Nose with pink nasal mucosa that is tacky dry, nares patent, non tender without bleeding Mouth - mucous membrane moist , pink , no lesions , no trismus Neck - no masses , supple , no cervical spinous process tenderness Pharynx - no exudate , no petechia or obvious lesions , no airway obstruction or stridor Hematologic ~ Lymphatic ~ Immunologic: Lymphadenopathy normal , no petechia , Skin color, nails and pulses unremarkable. Heart ~ Chest: Reg rate ,nml Rhythm , nl S1/S2 , no MRG Lungs: Breath sounds equal , clear to auscultation bilaterally , no wheezing, no rales or rhonchi , no CVA tenderness Gastrointestinal ~ Abd: Soft & non tender , BS + in 4 quads , No HSM or masses , no peritoneal signs GenitoUrinary: Deferred Musculoskeletal ~ Back ~ Extremities: Warm and w/o clubbing , cyanosis , or edema. No point tenderness , good ROM of major joints Neurologic: Cranial nerves grossly intact, good muscle strength , attention good , DTR 's 2+ and symmetric , Alert and oriented x4 GCS = 15 Psychiatric: Calm , Insight and mood appropriate , Skin: No rashes , generally diminished skin turgor , cap refill 3 seconds , warm and dry - General General appearance: alert, in no apparent distress Course Vital Signs Temperature 97.2 F L 08/30/18 10:20 Pulse Rate 75 08/30/18 10:20 Respiratory Rate 18 08/30/18 10:20 Blood Pressure 117/72 08/30/18 10:20 O2 Sat by Pulse Oximetry 95 08/30/18 10:20 Temperature 97.2 F L 08/30/18 10:20 Pulse Rate 78 08/30/18 13:23 Respiratory Rate 18 08/30/18 13:23 Blood Pressure 119/67 08/30/18 13:23 O2 Sat by Pulse Oximetry 95 08/30/18 13:23 Oxygen Delivery Oxygen Delivery Room Air Medical Decision Making - MDM Narrative Medical decision making narrative: MDM: History and physical exam is consistent with - dehydration, weakness, CLL, pneumonia DDx included multiple etiologies for the symptoms such as - Uri, Pharyngitis, pneumonia, otitis media, sinusitis XRAYS: CXR:. Worsening left basilar airspace disease either due to atelectasis or developing pneumonia. Recommend chest radiograph in 8 weeks to confirm resolution. HEAD CT: No acute intracranial abnormality. Senescent changes with parenchymal volume loss and sequela of chronic microvascular ischemic changes. Old lacunar infarctions present as well. CT chest: No pulmonary emboli are identified. Mild increased ground-glass changes noted within the lungs bilaterally, which can be seen in the setting of atypical infection or mild edema. Critical Care: None Condition and evaluation here was discussed in detail. Lab results and illness was discussed with patient and patient does not feel well enough to go home and be treated as an outpatient. She and family are agreeable to admission to the hospital for treatment of her suspected atypical pneumonia. Dr. Marie is unable to be reached and patient is referred to the hospitalist Dr. Cali who was called and agrees with assessment and plan. - Lab Data Result diagrams: 08/30/18 11:15 08/30/18 11:15 Lab Results 08/30/18 08/30/18 08/30/18 Range/Units 10:48 11:15 11:15 WBC 36.4 H* (4.3-11.1) K/mcL RBC 3.89 (3.82-4.97) M/mcL Hgb 11.2 L (11.5-15.4) g/dL Hct 35.8 (35.3-44.9) % MCV 92.0 (83.0-100.0) fL MCH 28.8 (28.0-33.3) pg MCHC 31.3 L (31.6-35.5) g/dL RDW 15.0 H (11.5-14.5) % Plt Count 133 L (140-400) K/mcL MPV 8.1 L (9.4-12.4) fL Immature Gran % 0.2 (0-4) % Seg Neutrophils % 7.8 % Lymphocytes % 86.5 % Monocytes % 4.6 % Eosinophils % 0.8 % Basophils % 0.1 % Neutrophils # 2.8 (1.6-8.9) K/mcL Lymphocytes # 31.5 H (0.6-4.6) K/mcL Monocytes # 1.7 H (0.0-1.3) K/mcL Eosinophils # 0.3 (0.0-0.6) K/mcL Basophils # 0.0 (0.0-0.2) K/mcL Reactive Lymphocytes Present A (Not Present) Smudge Cells Present A (Not Present) Platelet Estimate Decreased L (Normal) PT 11.5 (9.4-12.1) Seconds INR 1.0 D-Dimer 1917 H (0-500) ng/mLFEU Sodium (136-145) mEq/L Potassium (3.5-5.1) mEq/L Chloride (98-107) mEq/L Carbon Dioxide (23-29) mEq/L BUN (8-23) mg/dL Creatinine (0.60-1.20) mg/dL Est GFR ( Amer) (> 60) Est GFR (Non-Af Amer) (> 60) BUN/Creatinine Ratio (6-26) Glucose (70-105) mg/dL Calculated Osmolality (280-300) Lactic Acid (0.5-2.2) mmol/L Calcium (8.6-10.3) mg/dL Troponin I (< 0.04) ng/mL B-Natriuretic Peptide (Less than 100) pg/mL Urine Color Yellow (Yellow) Urine Clarity Clear (Clear) Urine pH 6.0 (5.0-8.0) pH Units Ur Specific [place] 1.020 (1.010-1.025) Urine Protein Negative (Neg-Trace) mg/dL Urine Glucose (UA) Normal (Normal) mg/dL Urine Ketones Negative (Negative) mg/dL Urine Blood Trace-intact H (Negative) Urine Nitrite Negative (Negative) Urine Bilirubin Negative (Negative) Urine Urobilinogen Normal (Normal) mg/dL Ur Leukocyte Esterase Trace H (Negative) Urine Microscopic RBC 0-3 (0-3) per hpf Urine Microscopic WBC 0-3 (0-3) per hpf Ur Squamous Epith Cells Few (None-Few) per lpf Urine Bacteria Few (None-Few) per hpf Ur Culture Indicated? YES A (NO) 08/30/18 08/30/18 08/30/18 Range/Units 11:15 11:15 11:15 WBC (4.3-11.1) K/mcL RBC (3.82-4.97) M/mcL Hgb (11.5-15.4) g/dL Hct (35.3-44.9) % MCV (83.0-100.0) fL MCH (28.0-33.3) pg MCHC (31.6-35.5) g/dL RDW (11.5-14.5) % Plt Count (140-400) K/mcL MPV (9.4-12.4) fL Immature Gran % (0-4) % Seg Neutrophils % % Lymphocytes % % Monocytes % % Eosinophils % % Basophils % % Neutrophils # (1.6-8.9) K/mcL Lymphocytes # (0.6-4.6) K/mcL Monocytes # (0.0-1.3) K/mcL Eosinophils # (0.0-0.6) K/mcL Basophils # (0.0-0.2) K/mcL Reactive Lymphocytes (Not Present) Smudge Cells (Not Present) Platelet Estimate (Normal) PT (9.4-12.1) Seconds INR D-Dimer (0-500) ng/mLFEU Sodium 141 (136-145) mEq/L Potassium 3.4 L (3.5-5.1) mEq/L Chloride 102 (98-107) mEq/L Carbon Dioxide 31 H (23-29) mEq/L BUN 23 (8-23) mg/dL Creatinine 1.10 (0.60-1.20) mg/dL Est GFR ( Amer) 57 L (> 60) Est GFR (Non-Af Amer) 47 L (> 60) BUN/Creatinine Ratio 21 (6-26) Glucose 104 (70-105) mg/dL Calculated Osmolality 296 (280-300) Lactic Acid 0.8 (0.5-2.2) mmol/L Calcium 9.1 (8.6-10.3) mg/dL Troponin I < 0.03 (< 0.04) ng/mL B-Natriuretic Peptide 174 H (Less than 100) pg/mL Urine Color (Yellow) Urine Clarity (Clear) Urine pH (5.0-8.0) pH Units Ur Specific [place] (1.010-1.025) Urine Protein (Neg-Trace) mg/dL Urine Glucose (UA) (Normal) mg/dL Urine Ketones (Negative) mg/dL Urine Blood (Negative) Urine Nitrite (Negative) Urine Bilirubin (Negative) Urine Urobilinogen (Normal) mg/dL Ur Leukocyte Esterase (Negative) Urine Microscopic RBC (0-3) per hpf Urine Microscopic WBC (0-3) per hpf Ur Squamous Epith Cells (None-Few) per lpf Urine Bacteria (None-Few) per hpf Ur Culture Indicated? (NO) - EKG Data EKG #1 EKG results narrative: EKG shows sinus rhythm. Ventricular rate 75. CA interval 147. QRS duration 94. QTc 445. No acute injury pattern. Nonspecific T wave changes seen in leads 3 and aVF
[2018-08-30 11:23] LABS: Basophils % 0.1 %; Eosinophils # 0.3 K/mcL (0.0-0.6); Eosinophils % 0.8 %; Hematocrit 35.8 % (35.3-44.9); Hemoglobin 11.2 g/dL (11.5-15.4); Immature Granulocytes % 0.2 % (0-4); Lymphocytes # 31.5 K/mcL (0.6-4.6); Lymphocytes % 86.5 %; Mean Corpuscular HGB Conc 31.3 g/dL (31.6-35.5); Mean Corpuscular Hemoglobin 28.8 pg (28.0-33.3); Mean Platelet Volume 8.1 fL (9.4-12.4); Monocytes # 1.7 K/mcL (0.0-1.3); Monocytes % 4.6 %; Platelet Count 133 K/mcL (140-400); Red Blood Count 3.89 M/mcL (3.82-4.97); Segmented Neutrophils % 7.8 %
[2018-08-30 11:28] LABS: Neutrophils # 2.8 K/mcL (1.6-8.9)
[2018-08-30 11:29] LABS: Prothrombin Time 11.5 Seconds (9.4-12.1)
[2018-08-30 11:39] LABS: BUN/Creatinine Ratio 21 (6-26); Blood Urea Nitrogen 23 mg/dL (8-23); Calcium 9.1 mg/dL (8.6-10.3); Carbon Dioxide 31 mEq/L (23-29); Chloride 102 mEq/L (98-107); Glucose 104 mg/dL (70-105); Osmolality,Calculated 296 (280-300); Potassium 3.4 mEq/L (3.5-5.1); Sodium 141 mEq/L (136-145); Troponin I < 0.03 ng/mL (< 0.04); eGFR For Non-African Americans 47 (> 60)
[2018-08-30 11:40] LABS: Smudge Cells Present (Not Present)
[2018-08-30 11:41] LABS: Platelet Estimate Decreased (Normal); Reactive Lymphocytes Present (Not Present)
[2018-08-30] MEDS ORDERED: Isovue-370 500 ML INFUS..BTL IV ONE ×2 (12:05→14:35)
[2018-08-30 12:13] LABS: Bilirubin,Urine Negative (Negative); Blood,Urine Trace-intact (Negative); Clarity,Urine Clear (Clear); Color,Urine Yellow (Yellow); Glucose,Urine (UA) Normal (Normal); Ketones,Urine Negative (Negative); Leukocyte Esterase,Urine Trace (Negative); Nitrite,Urine Negative (Negative); Protein,Urine Negative (Neg-Trace); Urobilinogen,Urine Normal (Normal)
[2018-08-30 12:17] LABS: Bacteria,Urine Few per hpf (None-Few); RBC,Urine 0-3 per hpf (0-3); Squamous Epithelial Cell,Urine Few per lpf (None-Few); WBC,Urine 0-3 per hpf (0-3)
[2018-08-30] MEDS ORDERED: ISOVUE-370 100 ML INFUS..BTL IVP ONE (12:31)
[2018-08-30] MEDS ORDERED: Ipratropium/Albuterol Neb 3 ML IH ONE (13:35)
[2018-08-30] MEDS ORDERED: cefTRIAXone 1,000 MG in Water for inj. (sterile) 20 ML 10 ML IVP ONE (13:36)
[2018-08-30] MEDS ORDERED: Azithromycin 500 MG in D5% in Water 250 ML IVPB ONE (13:37)
[2018-08-30] MEDS ORDERED: Naloxone 0.4 MG/ML INJ IVP PRN (14:35)
[2018-08-30] MEDS ORDERED: Ipratropium/Albuterol Neb 3 ML IH SCH (14:35)
[2018-08-30] MEDS ORDERED: Nitroglycerin 0.4 MG TAB.SUBL SL PRN (14:35)
[2018-08-30] MEDS ORDERED: Ipratropium/Albuterol Neb 3 ML IH PRN (16:09)
[2018-08-30] MEDS: 0.9 % Sodium Chloride 1,000 ML IVC SCH (16:57)
[2018-08-30] MEDS: Furosemide 40 MG TABLET PO SCH (16:57)
[2018-08-31] MEDS: 0.9 % Sodium Chloride 1,000 ML IVC SCH (03:05)
[2018-08-31 04:15] LABS: Eosinophils # 0.3 K/mcL (0.0-0.6); Eosinophils % 0.6 %; Hematocrit 35.5 % (35.3-44.9); Hemoglobin 11.1 g/dL (11.5-15.4); Immature Granulocytes % 0.2 % (0-4); Lymphocytes # 45.2 K/mcL (0.6-4.6); Mean Corpuscular HGB Conc 31.3 g/dL (31.6-35.5); Mean Corpuscular Hemoglobin 28.9 pg (28.0-33.3); Mean Corpuscular Volume 92.4 fL (83.0-100.0); Mean Platelet Volume 7.9 fL (9.4-12.4); Monocytes # 2.3 K/mcL (0.0-1.3); Monocytes % 4.5 %; Neutrophils # 2.9 K/mcL (1.6-8.9); Platelet Count 132 K/mcL (140-400); Red Blood Count 3.84 M/mcL (3.82-4.97); Red Cell Distribution Width 14.9 % (11.5-14.5); Segmented Neutrophils % 5.7 %
[2018-08-31 04:29] LABS: BUN/Creatinine Ratio 17 (6-26); Blood Urea Nitrogen 18 mg/dL (8-23); Calcium 8.7 mg/dL (8.6-10.3); Carbon Dioxide 29 mEq/L (23-29); Chloride 106 mEq/L (98-107); Glucose 95 mg/dL (70-105); Osmolality,Calculated 298 (280-300); Potassium 3.8 mEq/L (3.5-5.1); Sodium 143 mEq/L (136-145); eGFR For Non-African Americans 51 (> 60)
[2018-08-31] MEDS: Azithromycin 500 MG in D5% in Water 250 ML IVPB SCH (08:51)
[2018-08-31] MEDS: Aspirin 81 MG TAB.CHEW PO SCH (08:52)
[2018-08-31] MEDS: cefTRIAXone 1,000 MG in Water for inj. (sterile) 20 ML 10 ML IVP SCH (08:52)
[2018-08-31] MEDS: Multivit/Ca/Min/Fe/FA 1 TAB TABLET PO SCH (08:53)
[2018-08-31] MEDS: Furosemide 40 MG TABLET PO SCH ×2 (08:53→17:35)
--- NOTE | 2018-08-31 10:19 | Internal Med History&Physical ---
Date of Encounter: 08/31/18 Time of Encounter: 10:16 Assessment and Plan (1) Pneumonia Current visit: Yes Status: Acute Chest x-ray showed worsening disease chest CT showed increased groundglass possible atelectasis versus pneumonia. She does have an elevated white count but she does have CLL. we will continue to treat her with Rocephin and Zithromax. Blood cultures are pending. She is afebrile but she is not able to care for herself at home will have therapy walker she did walk to the rehabilitation gym today and did well Qualifiers: Pneumonia type: due to unspecified organism Laterality: bilateral Lung location: lower lobe of lung Qualified Code(s): J18.1 - Lobar pneumonia, unspecified organism (2) Chronic lymphocytic leukemia Current visit: Yes Status: Chronic she is not currently on any medication for t this. She did have released lymphadenopathy on her CT scan and she does follow with [facility] in [place] (3) Hx of CABG Current visit: No Status: Chronic Is currently not having any chest pain or cardiac symptoms she is on telemetry she is in a normal sinus rhythm. (4) Hypokalemia Current visit: No Status: Resolved In the ER and is normal on this morning's BMP will continue to follow (5) Mild cognitive impairment Current visit: No Status: Chronic Appears to be at her baseline she currently is in a good mood. We will continue to follow her I do have some concerns about her living alone living at home and driving a car. But she states she is fine to drive when she feels well (6) Anemia Current visit: No Status: Chronic Numbers appear stable we will continue to follow Qualifiers: Anemia type: unspecified type Qualified Code(s): D64.9 - Anemia, unspecified (7) DVT prophylaxis Current visit: No Status: Inactive Currently has on LARA hose we will add Lovenox as she has CLL. She has been on Lovenox in the past for DVT prophylaxis. (8) Physical deconditioning Current visit: No Status: Acute She did get up and walk to the rehabilitation gym and did well with that. (9) Thrombocytopenia Current visit: No Status: Acute Stable we will continue to follow especially since Lovenox has been added for DVT prophylaxis Internal Medicine - H&P: HPI Chief complaint: i fell at home Admitted From: Home History of present illness: Ms. Vega is a 82 year old female Who presented to the emergency room by squad. Several days prior to admission she had fallen in the bathroom at home. She felt dizzy and off-balance she fell she denies losing consciousness. she denies hitting her head. She just felt di zzy when she got up. She had some bruising to her hip but otherwise did not have any injuries. on tHe day of admission she got dizzy and woozy when she woke up in the morning. she went out to the living room she was really off-balance it was hard to get around she had to use her walker. She did not follow-up that day she called her neighbor Raf he came over right away to check her out. She looked bad called the squad. She came into the emergency room where she had a head CT that did not show any acute disease she had a lung CT that showed atelectasis versus infiltrate. She had an elevated white count but she does have CLL. She was not hypoxic. She is not a very good historian with her cognitive decline. She was given Rocephin and Zithromax and blood cultures were taken in the emergency room and she was admitted for further evaluation Past Med Surg Social Fam HX - Past Medical History Medical history: CHF (In the past last echo in 2016 showed an EF of 60-65%), coronary artery disease (CABG in 2010), dementia (She still lives alone and drove last week prior to her admission), GERD, hyperlipidemia, hypertension, malignancy (CLL), osteoporosis, renal disease, TIA, other Additional medical history: CLL Psychiatric history: anxiety, depression - Past Surgical History Surgical History: cholecystectomy, coronary bypass (CABG) Additional surgical history: Open heart surgery- aortocoronary bypass graft - Social History Smoking Status: Never smoker Smokeless Tobacco Status: No Alcohol use: none Drug use: none - Family History Mother Living Status: Hx Family Cardiac Disorders: Yes Father Living Status: Hx Family Cardiac Disorders: Yes Hx Family Respiratory Disorders: No Hx Family Cancer: No Son Living Status: Still Living Hx Family Cardiac Disorders: Yes (Hypertension) Brother Hx Family Cancer: Yes (Lung cancer) Internal Medicine - H&P: Meds Furosemide [Lasix] 40 mg PO BID 09/24/15 [History] Lisinopril [Zestril] 2.5 mg PO DAILY 09/24/15 [History] Metoprolol [Lopressor] 12.5 mg PO BID 09/24/15 [History] Omeprazole [PriLOSEC] 20 mg PO DAILY 09/24/15 [History] Ferrous Sulfate [Iron] 325 mg PO DAILY 01/23/16 [History] Aspirin 81 mg PO DAILY 04/23/18 [History] Multivitamin [One Daily Essential] 1 each PO DAILY 04/23/18 [History] Nitroglycerin [Nitrostat] 0.4 mg SL Q5M PRN MDD 3 tab 04/23/18 [History] Allergy/AdvReac Type Severity Reaction Status Date / Time Penicillins [PCN] Allergy Hives Verified 04/23/18 06:19 Sulfa (Sulfonamide Allergy Hives Verified 04/23/18 06:19 Antibiotics) All Systems PM: A 10-system review of systems was performed and is negative for pertinent findings except as documented above in the HPI. - Constitutional Constitutional: fatigue, falls, weakness (She was help weakness of her left side but that has not changed.), no chills, no fever(s), no weight gain, no weight loss - EENT Eyes: no blurry vision Nose, mouth and throat: no sore throat - Cardiovascular Cardiovascular ROS IM: lightheadedness, no chest pain, no dyspnea (But the ER noted that she did have some shortness of breath at home), no edema, no orthopnea, no palpitations, no paroxysmal nocturnal dyspnea, no syncope, no other - Respiratory Respiratory: no cough, no wheezing, no chest congestion - Gastrointestinal Gastrointestinal: no abdominal pain, no constipation, no diarrhea, no hematemesis, no hematochezia, no loose stools, no melena, no nausea, no vomiting - Genitourinary Genitourinary: urinary incontinence (Chronic unchanged), no dysuria, no urinary frequency - Musculoskeletal Musculoskeletal ROS IM: muscle weakness (He did have some of the left side in the past), numbness (He did have some in her bilateral feet), no limited range of motion - Integumentary Integumentary IM: no pruritus, no rash - Neurological Neurological ROS: memory loss, no headache(s) - Constitutional Vitals: Temp Pulse Resp BP Pulse Ox 97.6 F 78 18 150/70 94 08/31/18 07:36 10/30/18 07:36 08/31/18 07:36 08/31/18 07:36 08/31/18 07:36 General appearance: Present: A&O X 3 (She is alert to name place date year), pleasant, no acute distress - Head Head exam: Present: atraumatic, normocephalic - Neck Neck exam general surgery: Present: lymphadenopathy, supple, trachea midline - Expanded Neck Exam Neck exam: Absent: carotid bruit - Respiratory Respiratory exam: Present: rhonchi (Right base). Absent: accessory muscle use, respiratory distress, stridor, wheezes, tachypnea - Cardiovascular Cardiovascular exam: Present: RRR. Absent: systolic murmur - GI/Abdominal GI/Abdominal exam: Present: normal bowel sounds, soft, no peritoneal signs. Absent: distended, guarding, mass, tenderness - Extremities Exam Extremities exam: Present: normal capillary refill, warm. Absent: pedal edema (Bilateral LARA hose in place) - Skin Skin exam: Present: dry, warm. Absent: rash Internal Med - H&P Results - Labs CBC & Chem 7: 08/31/18 04:00 08/31/18 04:00 Labs: Short CBC 08/30/18 08/31/18 Range/Units 11:15 04:00 WBC 36.4 H* 50.8 H* (4.3-11.1) K/mcL Hgb 11.2 L 11.1 L (11.5-15.4) g/dL Hct 35.8 35.5 (35.3-44.9) % Plt Count 133 L 132 L (140-400) K/mcL Neutrophils # 2.8 2.9 (1.6-8.9) K/mcL BMP 08/30/18 08/31/18 11:15 04:00 Sodium 141 143 Potassium 3.4 L 3.8 Chloride 102 106 Carbon Dioxide 31 H 29 BUN 23 18 Creatinine 1.10 1.03 Glucose 104 95 Calcium 9.1 8.7 Cardiac Enzymes 08/30/18 08/30/18 08/30/18 Range/Units 11:15 14:50 20:40 Troponin I < 0.03 < 0.03 < 0.03 (< 0.04) ng/mL 08/31/18 Range/Units 04:00 Troponin I < 0.03 (< 0.04) ng/mL Urine 08/30/18 Range/Units 10:48 Urine Color Yellow (Yellow) Urine Clarity Clear (Clear) Urine pH 6.0 (5.0-8.0) pH Units Ur Specific [place] 1.020 (1.010-1.025) Urine Protein Negative (Neg-Trace) mg/dL Urine Glucose (UA) Normal (Normal) mg/dL - Impressions ITS Impressions Chest X-Ray 08/30/18 10:47 IMPRESSION: 1. Worsening left basilar airspace disease either due to atelectasis or developing pneumonia. Recommend chest radiograph in 8 weeks to confirm resolution. D/ / Derrick Cedillo MD / Derrick Cedillo MD Interpreting Provider: Derrick Cedillo MD Head CT 08/30/18 10:47 IMPRESSION: No acute intracranial abnormality. Senescent changes with parenchymal volume loss and sequela of chronic microvascular ischemic changes. Old lacunar infarctions present as well. D/ / Hollis Canas MD / Hollis Canas MD Interpreting Provider: Hollis Canas MD Chest CTA 08/30/18 12:05 IMPRESSION: No pulmonary emboli are identified. Mild increased ground-glass changes noted within the lungs bilaterally, which can be seen in the setting of atypical infection or mild edema. Patchy areas of atelectasis, including stable-appearing rounded atelectasis in the lower lobes bilaterally. Mild nodular change seen dating back to 2014 and stable. No new pulmonary nodules or lung mass is identified. Mediastinal lymphadenopathy as well as upper abdominal and right axillary lymphadenopathy appear stable in this patient with known history of CLL. There is mild increased left axillary lymphadenopathy when compared to the previous examination with regards to size. D/ / 08/30/2018 13:18:21 Raf Clifton MD / [email or web address] Interpreting Provider: Raf Clifton MD Hip X-Ray 08/31/18 07:30 IMPRESSION: No acute osseous abnormality of the left hip. D/ / 08/31/2018 08:19:20 Raf Solares MD / [email or web address] Interpreting Provider: Raf Solares MD
[2018-08-31] MEDS: *HR* Enoxaparin 40 MG/0.4 ML SYRINGE SQ SCH (17:35)
[2018-09-01] MEDS: *HR* Enoxaparin 40 MG/0.4 ML SYRINGE SQ SCH (04:33)
[2018-09-01 05:05] LABS: Basophils # 0.1 K/mcL (0.0-0.2); Basophils % 0.1 %; Eosinophils # 0.3 K/mcL (0.0-0.6); Eosinophils % 0.6 %; Hematocrit 32.5 % (35.3-44.9); Hemoglobin 10.4 g/dL (11.5-15.4); Immature Granulocytes % 0.1 % (0-4); Lymphocytes # 49.5 K/mcL (0.6-4.6); Lymphocytes % 89.2 %; Mean Corpuscular Hemoglobin 29.2 pg (28.0-33.3); Mean Corpuscular Volume 91.3 fL (83.0-100.0); Mean Platelet Volume 8.4 fL (9.4-12.4); Monocytes # 2.9 K/mcL (0.0-1.3); Monocytes % 5.2 %; Neutrophils # 2.7 K/mcL (1.6-8.9); Platelet Count 132 K/mcL (140-400); Red Blood Count 3.56 M/mcL (3.82-4.97); Red Cell Distribution Width 14.8 % (11.5-14.5); Segmented Neutrophils % 4.8 %
[2018-09-01 05:20] LABS: BUN/Creatinine Ratio 16 (6-26); Blood Urea Nitrogen 16 mg/dL (8-23); Calcium 8.6 mg/dL (8.6-10.3); Carbon Dioxide 28 mEq/L (23-29); Chloride 109 mEq/L (98-107); Glucose 97 mg/dL (70-105); Osmolality,Calculated 297 (280-300); Potassium 3.8 mEq/L (3.5-5.1); Sodium 143 mEq/L (136-145); eGFR For Non-African Americans 55 (> 60)
[2018-09-01 05:42] LABS: Platelet Estimate Normal (Normal); Reactive Lymphocytes Present (Not Present); Smudge Cells Present (Not Present)
[2018-09-01] MEDS: cefTRIAXone 1,000 MG in Water for inj. (sterile) 20 ML 10 ML IVP SCH (08:53)
[2018-09-01] MEDS: Aspirin 81 MG TAB.CHEW PO SCH (08:54)
[2018-09-01] MEDS: Multivit/Ca/Min/Fe/FA 1 TAB TABLET PO SCH (08:54)
[2018-09-01] MEDS: Azithromycin 500 MG in D5% in Water 250 ML IVPB SCH (08:54)
[2018-09-01] MEDS: Furosemide 40 MG TABLET PO SCH ×2 (08:55→18:25)
--- NOTE | 2018-09-01 10:32 | Internal Med Progress Note ---
Date of Encounter: 09/02/18 Time of Encounter: 10:31 - Assessment and plan (1) Pneumonia Current Visit: Yes Status: Acute Assessment and plan: Her current pulmonary examination is basically unremarkable. A few atelectatic crackles at the bases. No respiratory distress. Blood cell count elevated chronically because of CLL. Continue IV antibiotics for treatment for presumed pneumonia. Clinically improved. Qualifiers: Pneumonia type: due to unspecified organism Laterality: bilateral Lung location: lower lobe of lung Qualified Code(s): J18.1 - Lobar pneumonia, unspecified organism (2) Bradycardia Current Visit: Yes Status: Acute Assessment and plan: Was reported to patient had a bradycardic episode while in the sleep in the afternoon down to the 20s. Unfortunately, no monitor strip recorded. Patient was attended to by Dr. Cali the hospitalist as well as an aide. She has had no further symptoms since then. Her EKG was unremarkable. We will continue to monitor. Her beta sanjay was discontinued. (3) Chronic lymphocytic leukemia Current Visit: Yes Status: Chronic Assessment and plan: Her numbers are relatively stable with chronic history of CLL with elevated white blood cell count and mild anemia. (4) Hx of CABG Current Visit: No Status: Chronic Assessment and plan: History of previous CAD and CABG. She has had no angina. There was a brief episode of bradycardia, not well documented, and asymptomatic at this point. Beta sanjay has been held. No obvious angina or CHF currently. (5) Mild cognitive impairment Current Visit: No Status: Chronic Assessment and plan: She appears be at her baseline, surprisingly less anxious and frustrated compared to normal. (6) Anemia Current Visit: No Status: Chronic Assessment and plan: Chronic but stable anemia. Hemoglobin dropped slightly since admission. No obvious hemorrhage. We will monitor. Likely from CLL. Qualifiers: Anemia type: unspecified type Qualified Code(s): D64.9 - Anemia, unspecified (7) Hypotension Current Visit: No Status: Acute Assessment and plan: Relatively low blood pressure yesterday late afternoon and the 90s systolic. Beta sanjay has been held. We will continue to monitor. Will need to be sure she has monitor at home as well. Qualifiers: Hypotension type: hypotension due to hypovolemia Qualified Code(s): I95.89 - Other hypotension; E86.1 - Hypovolemia (8) DVT prophylaxis Current Visit: No Status: Inactive Assessment and plan: Patient is on Lovenox for DVT prophylaxis as well as elastic stockings and ambulation - Subjective Interval history: Patient thinks that she is much improved. She says she has not had any further "spells" like she had at home when she had extreme weakness and difficulties walking. She denies any dyspnea, no significant cough, no cardiac chest pain, no GI or symptoms. She think she is progressing well with her therapy. It was reported to me that she had a bradycardic episode of pulse in the 20s while she was in a deep sleep in the afternoon. She has had no recurrence of that. She has had no cardiac symptoms. Her beta sanjay was discontinued. Her blood pressure that afternoon did get down to the 90s systolic. - Constitutional Vitals: Temp Pulse Resp BP Pulse Ox 98.4 F 78 12 145/72 93 09/01/18 07:12 09/01/18 07:12 09/01/18 07:12 09/01/18 07:12 09/01/18 07:12 General appearance: Present: A&O X 3 (She is alert to name place date year), pleasant, no acute distress - Respiratory Additional comments: Few rare atelectatic-type crackles at both bases, does not clear with cough. No respiratory distress. No wheezing. - Cardiovascular Cardiovascular exam: Present: RRR, +S1, +S2 - GI/Abdominal GI/Abdominal exam: Present: soft. Absent: tenderness - Extremities Exam Extremities exam: Absent: calf tenderness, pedal edema, tenderness - Neurological Exam Additional comments: Appears at her baseline. She remembers the event happening at home, who she called, and how she got to the ER. She denies any confusion episodes here. Internal Medicine: Result - Labs CBC & Chem 7: 09/01/18 04:14 09/01/18 04:14 Labs: Short CBC 09/01/18 Range/Units 04:14 WBC 55.5 H* (4.3-11.1) K/mcL Hgb 10.4 L (11.5-15.4) g/dL Hct 32.5 L (35.3-44.9) % Plt Count 132 L (140-400) K/mcL Neutrophils # 2.7 (1.6-8.9) K/mcL BMP 09/01/18 04:14 Sodium 143 Potassium 3.8 Chloride 109 H Carbon Dioxide 28 BUN 16 Creatinine 0.97 Glucose 97 Calcium 8.6 Labs have been reviewed. Chronically elevated WBC because of her CLL. - ABG Interpretation ABG results: PT/INR, D-dimer PT 11.5 Seconds (9.4-12.1) 08/30/18 11:15 D-Dimer 1917 ng/mLFEU (0-500) H 08/30/18 11:15 Consult Discharge Plan - Plan Referrals: Larry White MD [Primary Care Provider] -
[2018-09-02] MEDS: *HR* Enoxaparin 40 MG/0.4 ML SYRINGE SQ SCH (05:21)
[2018-09-02] MEDS: cefTRIAXone 1,000 MG in Water for inj. (sterile) 20 ML 10 ML IVP SCH (09:12)
[2018-09-02] MEDS: Azithromycin 500 MG in D5% in Water 250 ML IVPB SCH (09:12)
[2018-09-02] MEDS: Furosemide 40 MG TABLET PO SCH ×2 (09:13→16:58)
[2018-09-02] MEDS: Multivit/Ca/Min/Fe/FA 1 TAB TABLET PO SCH (09:13)
[2018-09-02] MEDS: Aspirin 81 MG TAB.CHEW PO SCH (09:13)
--- NOTE | 2018-09-02 11:06 | Internal Med Progress Note ---
Date of Encounter: 09/02/18 Time of Encounter: 11:05 - Assessment and plan (1) Pneumonia Current Visit: Yes Status: Acute Assessment and plan: Clinically and symptomatically she is improving from her pneumonia. Likely will be safe to send her home tomorrow. Oxygen saturation is good. Her ADLs and functional capacity markedly improved. Qualifiers: Pneumonia type: due to unspecified organism Laterality: bilateral Lung location: lower lobe of lung Qualified Code(s): J18.1 - Lobar pneumonia, unspecified organism (2) Bradycardia Current Visit: Yes Status: Acute Assessment and plan: No recurrence of bradycardia. Monitor shows normal sinus rhythm typically 80s to 90s. (3) Chronic lymphocytic leukemia Current Visit: Yes Status: Chronic Assessment and plan: Chronically elevated white blood cell count. Follow-up ordered. (4) Hx of CABG Current Visit: No Status: Chronic Assessment and plan: No angina or CHF noted. (5) Mild cognitive impairment Current Visit: No Status: Chronic Assessment and plan: She seems to be doing very well currently. Therapy think she is doing well. We will try to arrange a bobtail driver simulation test. (6) Anemia Current Visit: No Status: Chronic Assessment and plan: Stable and likely due to his CLL. Follow-up ordered. Qualifiers: Anemia type: unspecified type Qualified Code(s): D64.9 - Anemia, unspecified (7) Hypotension Current Visit: No Status: Acute Assessment and plan: No further hypotensive episodes. No bradycardia noted. Qualifiers: Hypotension type: hypotension due to hypovolemia Qualified Code(s): I95.89 - Other hypotension; E86.1 - Hypovolemia (8) DVT prophylaxis Current Visit: No Status: Inactive - Subjective Interval history: Patient states that she is markedly improved since Thursday. She states she has had no further lightheadedness, dizziness, dyspneic episode. She is ambulating well with her walker. No pulmonary or cardiac symptoms. Therapy states patient is doing well with her walker. Nurses report no further bradycardic episodes. - Constitutional Vitals: Temp Pulse Resp BP Pulse Ox 98.3 F 77 13 139/68 94 09/02/18 07:00 09/02/18 07:00 09/02/18 07:00 09/02/18 07:00 09/02/18 07:00 General appearance: Present: A&O X 3 (She is alert to name place date year), pleasant, no acute distress - Respiratory Additional comments: Rare atelectatic-type crackle in the left base. Right is clear. No respiratory distress. Oxygen saturation is good. - Cardiovascular Cardiovascular exam: Present: RRR, +S1, +S2 - Extremities Exam Extremities exam: Absent: calf tenderness, pedal edema - Neurological Exam Neurological exam: Present: alert, altered, normal gait (With use of the walker) Internal Medicine: Result - Labs CBC & Chem 7: 09/01/18 04:14 09/01/18 04:14 - ABG Interpretation ABG results: PT/INR, D-dimer PT 11.5 Seconds (9.4-12.1) 08/30/18 11:15 D-Dimer 1917 ng/mLFEU (0-500) H 08/30/18 11:15 - VTE Documentation of Mechanical Device: Graduated compression elastic hosiery Consult Discharge Plan - Plan Referrals: Larry White MD [Primary Care Provider] -
[2018-09-02 13:51] LABS: Basophils # 0.2 K/mcL (0.0-0.2); Basophils % 0.4 %; Eosinophils # 0.4 K/mcL (0.0-0.6); Eosinophils % 0.7 %; Hematocrit 37.1 % (35.3-44.9); Hemoglobin 11.8 g/dL (11.5-15.4); Immature Granulocytes % 0.3 % (0-4); Mean Corpuscular HGB Conc 31.8 g/dL (31.6-35.5); Mean Corpuscular Hemoglobin 29.4 pg (28.0-33.3); Mean Corpuscular Volume 92.3 fL (83.0-100.0); Mean Platelet Volume 9.1 fL (9.4-12.4); Monocytes # 2.2 K/mcL (0.0-1.3); Platelet Count 148 K/mcL (140-400); Red Blood Count 4.02 M/mcL (3.82-4.97); Red Cell Distribution Width 15.1 % (11.5-14.5); Segmented Neutrophils % 7.6 %
[2018-09-02 14:12] LABS: Lymphocytes # 48.3 K/mcL (0.6-4.6); Neutrophils # 4.2 K/mcL (1.6-8.9)
[2018-09-02 15:17] LABS: Platelet Estimate Normal (Normal); Reactive Lymphocytes Present (Not Present)
[2018-09-02 15:43] LABS: BUN/Creatinine Ratio 18 (6-26); Blood Urea Nitrogen 19 mg/dL (8-23); Calcium 9.3 mg/dL (8.6-10.3); Carbon Dioxide 26 mEq/L (23-29); Chloride 104 mEq/L (98-107); Glucose 108 mg/dL (70-105); Osmolality,Calculated 289 (280-300); Sodium 138 mEq/L (136-145); eGFR For Non-African Americans 50 (> 60)
[2018-09-02] MEDS: Furosemide 20 MG TABLET PO SCH (17:51)
--- NOTE | 2018-09-02 21:28 | Electrocardiograph Report ---
[address] [place] [address] Test Date: 2018-08-31 Pat Name: Jes Vega Department: 2001 Room: 116 Gender: F Telemetry Registered Nurse: : 1935 Requested By: Tennille May Order Number: [id number] Mandi MD: Amelia Steinberg Measurements Intervals [place] Rate: 77 P: 53 [place]: 164 QRS: 11 QRSD: 76 T: 30 QT: 414 QTc: 446 Interpretive Statements SINUS RHYTHM Electronically Signed On 09-02-2018 21:27:23 EDT by Amelia Steinberg
--- NOTE | 2018-09-02 21:29 | Electrocardiograph Report ---
[place] [address] Test Date: 2018-08-31 Pat Name: Jes Vega Department: 2001 Room: 116 Gender: F Pesticide Chemist: : 1935 Requested By: Camilo Patel Order Number: [id number] Reading MD: Amelia Steinberg Measurements Intervals [place] Rate: 78 P: 46 [place]: 159 QRS: 12 QRSD: 97 T: 31 QT: 418 QTc: 451 Interpretive Statements SINUS RHYTHM POSSIBLE LEFT ATRIAL ENLARGEMENT [-0.1mV P WAVE IN V1/V2] Electronically Signed On 09-02-2018 21:27:30 EDT by Amelia Steinberg
--- NOTE | 2018-09-02 22:33 | Discharge Summary ---
- NOTES TO OUTPATIENT PROVIDER Notes to Outpatient Provider: #1. Home health consultation for usp and physical therapy. #2. Beta sanjay/metoprolol was discontinued because patient had a brief bradycardic episode to the 20s when she was sleeping. #3. House call will be made to check on patient's ability to ambulate in the home and look for barriers Orders not resulted at time of discharge: Pending orders 08/30/18 11:15 Culture,Blood [] Stat Date of Encounter: 09/03/18 Time of Encounter: 07:12 - Discharge Diagnosis (1) Pneumonia Priority: Primary Status: Acute Comments: Patient had weakness dizziness and recent falling episode. She was evaluated in the ER and felt to have pneumonia. She is placed on Rocephin and Zithromax. Clinically and symptomatically she improved nicely. Having finished 5 days of IV antibiotic she is ready for discharge to home. Her lungs are basically clear now. She will follow-up in the office or I will make a house call. Qualifiers: Pneumonia type: due to unspecified organism Laterality: bilateral Lung location: lower lobe of lung Qualified Code(s): J18.1 - Lobar pneumonia, unspecified organism (2) Bradycardia Priority: Secondary Status: Acute Comments: One afternoon while she was sleeping she was noted to have bradycardia to the 20s as witnessed by Dr. Cali and a nursing home director. Patient was awoken and had no symptoms, no recurrence of bradycardia noted on her monitor despite physical therapy and ADLs. At this point I do not think we need to intervene other than her metoprolol was discontinued. (3) Chronic lymphocytic leukemia Priority: Secondary Status: Chronic Comments: She has a history of CLL and chronic elevated white blood cell count. Typically ranging in the 30s to 60,000s. She remained stable during this hospital stay regarding her CLL. She follows up with Dr. Stroud her oncologist (4) Hx of CABG Priority: Secondary Status: Chronic Comments: Patient is known history of CAD and CABG. She had no CHF or angina during this hospital stay. She did have a brief episode of bradycardia as discussed above. Dr. Douglas was not available for consultation during this hospital stay. (5) Mild cognitive impairment Priority: Secondary Status: Chronic Comments: Patient has some mild cognitive impairment, and this worsens when she becomes nervous. However, at the present time she is at a good spot in her baseline, seems to be alert and appropriate. 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 (6) Anemia Priority: Secondary Status: Chronic Comments: Chronically patient has mild anemia because of her CLL. No symptoms can change in that. No hemorrhage noted. Continues with iron. Qualifiers: Anemia type: unspecified type Qualified Code(s): D64.9 - Anemia, unspecified (7) Hypotension Priority: Secondary Status: Acute Comments: She was noted have blood pressure that would dropped into the 90s systolic. She has had no further episodes since her beta sanjay was discontinued. We are not sure whether she has had hypotensive episodes at home Qualifiers: Hypotension type: hypotension due to hypovolemia Qualified Code(s): I95.89 - Other hypotension; E86.1 - Hypovolemia Hospital course: Ms. Vega is a 82 year old female with known history of mild cognitive dysfunction, CAD and status post CABG, hypertension, and COPD was admitted with recurrence of her pneumonia, and a spell in which she had dizziness and inability to walk. She was admitted via the ER was placed on Rocephin and Zithromax. She had physical therapy. She improved dramatically. She is now finished 5 days of IV antibiotics. She is doing well with physical therapy and a bleeding with her walker. 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 She will be discharged to home today. Home health and home physical therapy to be arranged. I will make a house call to check on her ability to maintain ADLs and safety and barriers at home. Please see the diagnoses above. - Time Spent with Patient Total time spent providing and/or coordinating discharge services: - Discharge Medications Home Medications: Furosemide [Lasix] 40 mg PO BID 09/24/15 [History] Lisinopril [Zestril] 2.5 mg PO DAILY 09/24/15 [History] Omeprazole [PriLOSEC] 20 mg PO DAILY 09/24/15 [History] Ferrous Sulfate [Iron] 325 mg PO DAILY 01/23/16 [History] Aspirin 81 mg PO DAILY 04/23/18 [History] Multivitamin [One Daily Essential] 1 each PO DAILY 04/23/18 [History] Nitroglycerin [Nitrostat] 0.4 mg SL Q5M PRN MDD 3 tab 04/23/18 [History] Albuterol Sulfate [Albuterol Inhaler] 2 puff IH [id number] PRN inhaler 09/03/18 [Rx] Budesonide/Formoterol 160/4.5 [Symbicort 160/4.5] 2 puff IH BIDR inh 09/03/18 [Rx] Simvastatin [Zocor] 20 mg PO HS tablet 09/03/18 [Rx] Allergies/Adverse Reactions: Allergy/AdvReac Type Severity Reaction Status Date / Time Penicillins [PCN] Allergy Hives Verified 04/23/18 06:19 Sulfa (Sulfonamide Allergy Hives Verified 04/23/18 06:19 Antibiotics) Date of admission: 08/30/18 17:27 Primary care physician: Larry White MD Consults: 08/30/18 14:35 Consult to Physical Therapy [CONS] Routine Comment: Evaluate, develop and implement POC Reason for Consult: generalized weakness Does patient have active BEDREST order?: No Is patient medically & hemodynamically stable?: Yes Patient assessed for mobility or mobilized this visit?: No 08/31/18 15:00 Consult to Cardiology [CONS] Routine Comment: Consulting Provider: Raf Douglas Reason for Consult: bradycardia Call Completed: Yes 09/02/18 11:37 Consult to Occupational Therapy [CONS] Routine Comment: team otr truck driver simulation test Reason for Consult: Please eval uate for team otr truck driver simulation testing prior to discharge tomorrow. Does patient have active BEDREST order?: No Is patient medically & hemodynamically stable?: Yes Patient assessed for mobility or mobilized this visit?: Yes Discharging clinician: Larry White Anticipated date of discharge: 09/03/18 - Constitutional Vitals: Temp Pulse Resp BP Pulse Ox 98.1 F 93 18 103/59 96 09/02/18 19:00 09/02/18 19:00 09/02/18 19:00 09/02/18 19:00 09/02/18 19:00 General appearance: Present: A&O X 3 (She is alert to name place date year), pleasant, no acute distress - Respiratory Additional comments: A few subtle atelectatic-type crackles at the bases only. No respiratory distress. Slightly diminished breath sounds throughout. No wheezing. - Cardiovascular Cardiovascular exam: Present: RRR, +S1, +S2 - GI/Abdominal GI/Abdominal exam: Present: soft. Absent: tenderness - Extremities Exam Extremities exam: Absent: calf tenderness, pedal edema, tenderness - Neurological Exam Neurological exam: Present: alert, CN II-XII intact, oriented X3, no focal deficits Additional comments: Her mentation is doing well. She remembers her team otr truck driver simulation test yesterday. She is not as nervous and she has been in the past. - Patient Status Disposition: Home Health Service Condition: Good Functional capacity at discharge: uses cane/walker Overall status at discharge: patient is progressing back to baseline - Discharge Instructions Follow Up With: Larry White MD [Primary Care Provider] - (House call will be arranged.) - Diet and Activity Activity: ambulate only with your walker, as per physical therapy Diet: low salt diet - VTE Documentation of Mechanical Device: Graduated compression elastic hosiery
--- NOTE | 2018-09-02 22:44 | Physician Discharge Referral ---
Home Health/Hosp Referral Info Transfer to: Home Health Attending Provider: Provider in Charge Post Discharge: PCP - Diagnosis (1) Pneumonia Priority: Primary Status: Acute (2) Bradycardia Priority: Secondary Status: Acute (3) Chronic lymphocytic leukemia Priority: Secondary Status: Chronic (4) Hx of CABG Priority: Secondary Status: Chronic (5) Mild cognitive impairment Priority: Secondary Status: Chronic (6) Anemia Priority: Secondary Status: Chronic (7) Hypotension Priority: Secondary Status: Acute - Respiratory Orders Smoking Cessation: Smoking cessation has been advised. For more information, call the [place] Tobacco Quit Line at 4-536-BUVB-NOW. - Diet/Nutrition Diet/Nutrition Orders: No Added Salt (LELO) - Activity Activity Orders: Walker - Services Needed Following services are medically necessary services: Nursing, Home Health Aide, Physical Therapy - Transfer Medications Home Medications: Furosemide [Lasix] 40 mg PO BID 09/24/15 [History] Lisinopril [Zestril] 2.5 mg PO DAILY 09/24/15 [History] Omeprazole [PriLOSEC] 20 mg PO DAILY 09/24/15 [History] Ferrous Sulfate [Iron] 325 mg PO DAILY 01/23/16 [History] Aspirin 81 mg PO DAILY 04/23/18 [History] Multivitamin [One Daily Essential] 1 each PO DAILY 04/23/18 [History] Nitroglycerin [Nitrostat] 0.4 mg SL Q5M PRN MDD 3 tab 04/23/18 [History] Albuterol Sulfate [Albuterol Inhaler] 2 puff IH [id number] PRN inhaler 09/03/18 [Rx] Budesonide/Formoterol 160/4.5 [Symbicort 160/4.5] 2 puff IH BIDR inh 09/03/18 [Rx] Simvastatin [Zocor] 20 mg PO HS tablet 09/03/18 [Rx] Allergies/Adverse Reactions: Allergy/AdvReac Type Severity Reaction Status Date / Time Penicillins [PCN] Allergy Hives Verified 04/23/18 06:19 Sulfa (Sulfonamide Allergy Hives Verified 04/23/18 06:19 Antibiotics) Certification: Further, I certify that my clinical findings support that this patient is homebound (i.e. absences from home require considerable and taxing effort and are for medical reasons or catholic services or infrequently or short duration when for other reasons) because: Homebound Reason: Patient requires assistance of a person or device to safely leave home, Leaving home requires considerable and taxing effort due to condition Attestation: My signature below is to certify that this patient is under my care and that I, or nurse practitioner, or a physician's public health assistant working with me, has a [id number] encounter with this patient.
[2018-09-03] MEDS ORDERED: *HR* Enoxaparin 30 MG/0.3 ML SYRINGE SQ SCH (06:00)
[2018-09-03 07:56] VITALS: BP 104/67
[2018-09-03] MEDS ORDERED: Furosemide 20 MG TABLET PO SCH (08:00)
[2018-09-03] MEDS: Multivit/Ca/Min/Fe/FA 1 TAB TABLET PO SCH (09:09)
[2018-09-03] MEDS: Aspirin 81 MG TAB.CHEW PO SCH (09:09)
[2018-09-03] MEDS: Furosemide 20 MG TABLET PO SCH (09:09)
[2018-09-03] MEDS ORDERED: Budesonide/Formoterol 160/4.5 1 PUFF INH IH SCH (10:00)
--- NOTE | 2018-09-03 19:16 | Electrocardiograph Report ---
[place] [id number] Test Date: 2018-08-30 Pat Name: Jes Vega Department: 2000 Room: 116 Gender: F Spice Fumigator: TLC : 1935 Requested By: Camilo Patel Order Number: [id number] Reading MD: Ariel Kirkpatrick Measurements Intervals [place] Rate: 75 P: 46 IA: 147 QRS: 8 QRSD: 94 T: 7 QT: 415 QTc: 445 Interpretive Statements SINUS RHYTHM POSSIBLE LEFT ATRIAL ENLARGEMENT Electronically Signed On 09-03-2018 19:14:10 EDT by Ariel Kirkpatrick
== END 2018-09-03 12:07 | disposition home health service (06) | DRG 194 ==
LOC: EMEROOGRE 10:17 → INPGRE 10:17
PROVIDERS: ADMIT Internal Medicine; ATTEND Family Medicine

== ENCOUNTER 2019-08-24 13:30 | Observation (INO) ==
[2019-08-24] MEDS ORDERED: Nitroglycerin 0.4 MG TAB.SUBL SL PRN (13:48)
[2019-08-24] MEDS ORDERED: Acetaminophen 325 MG TABLET PO PRN (13:52)
[2019-08-24] MEDS ORDERED: Furosemide 20 MG TABLET PO SCH (17:00)
[2019-08-24] MEDS ORDERED: Diphenoxylate/Atropine 1 TAB TABLET PO PRN (18:08)
[2019-08-24] MEDS: Budesonide/Formoterol 160/4.5 1 PUFF INH IH SCH (20:58)
[2019-08-25 05:13] LABS: Basophils % 0.1 %; Eosinophils # 0.1 K/mcL (0.0-0.6); Eosinophils % 0.2 %; Hematocrit 32.7 % (35.3-44.9); Hemoglobin 10.3 g/dL (11.5-15.4); Immature Granulocytes % 0.3 % (0-4); Lymphocytes # 49.9 K/mcL (0.6-4.6); Lymphocytes % 88.3 %; Mean Corpuscular HGB Conc 31.5 g/dL (31.6-35.5); Mean Corpuscular Volume 95.3 fL (83.0-100.0); Mean Platelet Volume 7.8 fL (9.4-12.4); Monocytes % 6.3 %; Platelet Count 131 K/mcL (140-400); Red Blood Count 3.43 M/mcL (3.82-4.97); Red Cell Distribution Width 14.5 % (11.5-14.5); Segmented Neutrophils % 4.8 %
[2019-08-25 05:22] LABS: Basophils # 0.1 K/mcL (0.0-0.2); Monocytes # 3.6 K/mcL (0.0-1.3); Neutrophils # 2.7 K/mcL (1.6-8.9); White Blood Count 56.5 K/mcL (4.3-11.1)
[2019-08-25 05:29] LABS: Calcium 8.1 mg/dL (8.6-10.3)
[2019-08-25] MEDS ORDERED: *HR* Enoxaparin 30 MG/0.3 ML SYRINGE SQ SCH (06:00)
[2019-08-25] MEDS ORDERED: Furosemide 40 MG TABLET PO SCH (09:00)
[2019-08-25] MEDS ORDERED: Aspirin Enteric Coated 81 MG Tablet PO SCH (09:00)
[2019-08-25] MEDS: Budesonide/Formoterol 160/4.5 1 PUFF INH IH SCH (11:10)
[2019-08-25 11:28] VITALS: BP 119/73
[2019-08-25] MEDS ORDERED: Furosemide 20 MG TABLET PO SCH (17:00)
== END 2019-08-25 15:20 | disposition home or self-care (01) ==
LOC: INPGRE
PROVIDERS: ADMIT Family Medicine; ATTEND Family Medicine

== ENCOUNTER 2019-10-03 06:47 | Inpatient (IN) ==
[2019-10-03 07:35] LABS: Basophils % 0.1 %; Eosinophils % 0.1 %; Hematocrit 35.4 % (35.3-44.9); Hemoglobin 11.4 g/dL (11.5-15.4); Immature Granulocytes % 0.6 % (0-4); Lymphocytes # 32.8 K/mcL (0.6-4.6); Mean Corpuscular HGB Conc 32.2 g/dL (31.6-35.5); Mean Corpuscular Hemoglobin 30.2 pg (28.0-33.3); Mean Corpuscular Volume 93.9 fL (83.0-100.0); Mean Platelet Volume 7.7 fL (9.4-12.4); Monocytes # 2.6 K/mcL (0.0-1.3); Monocytes % 5.7 %; Neutrophils # 9.2 K/mcL (1.6-8.9); Platelet Count 150 K/mcL (140-400); Red Blood Count 3.77 M/mcL (3.82-4.97); Red Cell Distribution Width 14.8 % (11.5-14.5); Segmented Neutrophils % 20.5 %
[2019-10-03 07:37] LABS: White Blood Count 44.9 K/mcL (4.3-11.1)
[2019-10-03 07:41] LABS: INR 1.1; Prothrombin Time 12.4 Seconds (9.4-12.1)
[2019-10-03 07:42] LABS: Macrocytosis Present (Not Present); Platelet Estimate Normal (Normal); Reactive Lymphocytes Present (Not Present)
[2019-10-03 07:49] LABS: Alanine Aminotransferase 27 Units/L (7-52); Albumin 4.3 g/dL (3.5-5.7); Albumin/Globulin Ratio 1.8 (1.1-2.2); Alkaline Phosphatase 67 Units/L (34-104); Aspartate Amino Transferase 32 Units/L (13-39); BUN/Creatinine Ratio 19 (6-26); Bilirubin,Total 0.6 mg/dL (0.3-1.0); Blood Urea Nitrogen 25 mg/dL (8-23); Calcium 9.2 mg/dL (8.6-10.3); Carbon Dioxide 29 mEq/L (23-29); Chloride 100 mEq/L (98-107); Globulin 2.4 g/dL (2.4-3.5); Glucose 146 mg/dL (70-105); Osmolality,Calculated 287 (280-300); Potassium 4.3 mEq/L (3.5-5.1); Sodium 135 mEq/L (136-145); Total Protein 6.7 g/dL (6.4-8.9); eGFR For African Americans 47 (> 60); eGFR For Non-African Americans 39 (> 60)
[2019-10-03 07:53] LABS: Troponin I < 0.03 ng/mL (< 0.04)
[2019-10-03] MEDS ORDERED: levoFLOXacin 750 MG/150 ML 750 MG/150 ML BAG IVPB ONE (08:01)
[2019-10-03] MEDS ORDERED: 0.9 % Sodium Chloride 500 ML IVC ONE (08:02)
[2019-10-03 08:07] LABS: Thyroid Stimulating Hormone 2.172 mcIU/mL (0.340-5.600)
[2019-10-03 08:58] LABS: Bilirubin,Urine Negative (Negative); Blood,Urine Trace-intact (Negative); Clarity,Urine Clear (Clear); Color,Urine Yellow (Yellow); Glucose,Urine (UA) Normal (Normal); Ketones,Urine Negative (Negative); Leukocyte Esterase,Urine Negative (Negative); Nitrite,Urine Positive (Negative); Protein,Urine 100 mg/dL (Neg-Trace); Specific Gravity,Urine 1.015 (1.010-1.025); Urobilinogen,Urine Normal (Normal)
[2019-10-03 09:06] LABS: Bacteria,Urine Few per hpf (None-Few); RBC,Urine 0-3 per hpf (0-3); Squamous Epithelial Cell,Urine Few per lpf (None-Few); WBC,Urine 0-3 per hpf (0-3)
[2019-10-03] MEDS ORDERED: Nitroglycerin 0.4 MG TAB.SUBL SL PRN (13:24)
[2019-10-03] MEDS ORDERED: Naloxone 0.4 MG/ML INJ IVP PRN (13:24)
[2019-10-03] MEDS ORDERED: Acetaminophen 325 MG TABLET PO PRN (13:24)
[2019-10-03] MEDS: Aspirin Enteric Coated 81 MG Tablet PO SCH (14:59)
[2019-10-03] MEDS: 0.9 % Sodium Chloride 1,000 ML IVC SCH (14:59)
[2019-10-03] MEDS: Budesonide/Formoterol 160/4.5 1 PUFF INH IH SCH ×2 (18:26→22:21)
[2019-10-04] MEDS: 0.9 % Sodium Chloride 1,000 ML IVC SCH (01:08)
[2019-10-04 04:11] LABS: Acinetobacter baumannii by PCR Not Detected (Not Detect); Candida albicans by PCR Not Detected (Not Detect); Candida glabrata by PCR Not Detected (Not Detect); Candida krusei by PCR Not Detected (Not Detect); Candida parapsilosis by PCR Not Detected (Not Detect); Candida tropicalis by PCR Not Detected (Not Detect); Enterobacter cloacae Cmplx PCR Not Detected (Not Detect); Enterobacteriaceae by PCR Not Detected (Not Detect); Enterococcus by PCR Not Detected (Not Detect); Escherichia coli by PCR Not Detected (Not Detect); Klebsiella oxytoca by PCR Not Detected (Not Detect); Klebsiella pneumoniae by PCR Not Detected (Not Detect); Proteus by PCR Not Detected (Not Detect); Pseudomonas aeruginosa by PCR Not Detected (Not Detect); Serratia marcescens by PCR Not Detected (Not Detect); Staphylococcus aureus by PCR Not Detected (Not Detect); Staphylococcus by PCR Not Detected (Not Detect); Streptococcus agalactiae(B)PCR Not Detected (Not Detect); Streptococcus pneumoniae PCR DETECTED (Not Detect); Streptococcus pyogenes (A) PCR Not Detected (Not Detect)
[2019-10-04 06:02] LABS: Basophils # 0.1 K/mcL (0.0-0.2); Basophils % 0.2 %; Hematocrit 29.1 % (35.3-44.9); Hemoglobin 9.3 g/dL (11.5-15.4); Immature Granulocytes % 0.8 % (0-4); Lymphocytes # 24.6 K/mcL (0.6-4.6); Lymphocytes % 70.8 %; Mean Corpuscular Hemoglobin 29.9 pg (28.0-33.3); Mean Corpuscular Volume 93.6 fL (83.0-100.0); Mean Platelet Volume 8.1 fL (9.4-12.4); Monocytes # 1.8 K/mcL (0.0-1.3); Monocytes % 5.2 %; Platelet Count 116 K/mcL (140-400); Red Blood Count 3.11 M/mcL (3.82-4.97); Red Cell Distribution Width 14.9 % (11.5-14.5)
[2019-10-04 06:09] LABS: White Blood Count 34.8 K/mcL (4.3-11.1)
[2019-10-04 06:24] LABS: Calcium 7.6 mg/dL (8.6-10.3); Potassium 3.8 mEq/L (3.5-5.1)
[2019-10-04] MEDS: *HR* Enoxaparin 30 MG/0.3 ML SYRINGE SQ SCH (06:27)
[2019-10-04 06:31] LABS: Platelet Estimate Decreased (Normal); Smudge Cells Present (Not Present)
[2019-10-04] MEDS: Budesonide/Formoterol 160/4.5 1 PUFF INH IH SCH ×2 (08:30→20:19)
[2019-10-04] MEDS: Aspirin Enteric Coated 81 MG Tablet PO SCH (08:43)
[2019-10-04] MEDS ORDERED: cefTRIAXone 1,000 MG in Water for inj. (sterile) 10 ML IVP SCH (09:00)
[2019-10-04] MEDS ORDERED: levoFLOXacin 750 MG/150 ML 750 MG/150 ML BAG IVPB SCH ×2 (10:15→11:30)
[2019-10-04] MEDS: Acetaminophen 325 MG TABLET PO PRN ×2 (14:42→22:10)
[2019-10-05] MEDS: *HR* Enoxaparin 30 MG/0.3 ML SYRINGE SQ SCH (06:56)
[2019-10-05] MEDS: Budesonide/Formoterol 160/4.5 1 PUFF INH IH SCH ×2 (07:15→21:50)
[2019-10-05 07:48] LABS: Basophils # 0.1 K/mcL (0.0-0.2); Basophils % 0.2 %; Eosinophils % 0.1 %; Hematocrit 28.9 % (35.3-44.9); Hemoglobin 9.3 g/dL (11.5-15.4); Immature Granulocytes % 0.7 % (0-4); Lymphocytes % 70.2 %; Mean Corpuscular HGB Conc 32.2 g/dL (31.6-35.5); Mean Corpuscular Hemoglobin 29.8 pg (28.0-33.3); Mean Corpuscular Volume 92.6 fL (83.0-100.0); Mean Platelet Volume 8.3 fL (9.4-12.4); Monocytes # 2.8 K/mcL (0.0-1.3); Monocytes % 7.6 %; Neutrophils # 7.9 K/mcL (1.6-8.9); Platelet Count 123 K/mcL (140-400); Red Blood Count 3.12 M/mcL (3.82-4.97); Segmented Neutrophils % 21.2 %
[2019-10-05 07:56] LABS: Lymphocytes # 26.3 K/mcL (0.6-4.6); White Blood Count 37.4 K/mcL (4.3-11.1)
[2019-10-05 08:02] LABS: BUN/Creatinine Ratio 18 (6-26); Blood Urea Nitrogen 19 mg/dL (8-23); Calcium 7.8 mg/dL (8.6-10.3); Carbon Dioxide 20 mEq/L (23-29); Chloride 104 mEq/L (98-107); Glucose 104 mg/dL (70-105); Osmolality,Calculated 279 (280-300); Potassium 3.8 mEq/L (3.5-5.1); Sodium 133 mEq/L (136-145); eGFR For African Americans > 60 (> 60); eGFR For Non-African Americans 51 (> 60)
[2019-10-05] MEDS ORDERED: levoFLOXacin 750 MG/150 ML 750 MG/150 ML BAG IVPB SCH (09:00)
[2019-10-05] MEDS: levoFLOXacin 750 MG/150 ML 750 MG/150 ML BAG IVPB SCH (09:29)
[2019-10-05] MEDS: Aspirin Enteric Coated 81 MG Tablet PO SCH (09:30)
[2019-10-06] MEDS: *HR* Enoxaparin 30 MG/0.3 ML SYRINGE SQ SCH (06:02)
[2019-10-06] MEDS: Budesonide/Formoterol 160/4.5 1 PUFF INH IH SCH ×2 (07:26→20:25)
[2019-10-06] MEDS: Aspirin Enteric Coated 81 MG Tablet PO SCH (09:50)
[2019-10-07 05:15] LABS: Hematocrit 29.5 % (35.3-44.9); Hemoglobin 9.5 g/dL (11.5-15.4); Mean Corpuscular HGB Conc 32.2 g/dL (31.6-35.5); Mean Corpuscular Hemoglobin 29.9 pg (28.0-33.3); Mean Corpuscular Volume 92.8 fL (83.0-100.0); Mean Platelet Volume 8.3 fL (9.4-12.4); Platelet Count 164 K/mcL (140-400); Red Blood Count 3.18 M/mcL (3.82-4.97); Red Cell Distribution Width 14.6 % (11.5-14.5)
[2019-10-07] MEDS: *HR* Enoxaparin 30 MG/0.3 ML SYRINGE SQ SCH (05:20)
[2019-10-07 05:34] LABS: White Blood Count 43.4 K/mcL (4.3-11.1)
[2019-10-07 05:47] LABS: Lymphocytes # 27.8 K/mcL (0.6-4.6); Monocytes # 2.6 K/mcL (0.0-1.3); Smudge Cells Present (Not Present)
[2019-10-07 05:48] LABS: Reactive Lymphocytes Present (Not Present)
[2019-10-07 05:49] LABS: Platelet Estimate Normal (Normal)
[2019-10-07 05:53] LABS: BUN/Creatinine Ratio 18 (6-26); Blood Urea Nitrogen 16 mg/dL (8-23); Calcium 8.4 mg/dL (8.6-10.3); Carbon Dioxide 20 mEq/L (23-29); Chloride 106 mEq/L (98-107); Glucose 133 mg/dL (70-105); Osmolality,Calculated 281 (280-300); Potassium 3.8 mEq/L (3.5-5.1); Sodium 134 mEq/L (136-145); eGFR For African Americans > 60 (> 60); eGFR For Non-African Americans > 60 (> 60)
[2019-10-07] MEDS: Budesonide/Formoterol 160/4.5 1 PUFF INH IH SCH (07:56)
[2019-10-07] MEDS: levoFLOXacin 750 MG/150 ML 750 MG/150 ML BAG IVPB SCH (08:38)
[2019-10-07] MEDS: Aspirin Enteric Coated 81 MG Tablet PO SCH (08:39)
[2019-10-08] MEDS: Budesonide/Formoterol 160/4.5 1 PUFF INH IH SCH ×3 (00:57→21:31)
[2019-10-08] MEDS: *HR* Enoxaparin 30 MG/0.3 ML SYRINGE SQ SCH (06:36)
[2019-10-08] MEDS: Acetaminophen 325 MG TABLET PO PRN ×2 (06:36→21:28)
[2019-10-08] MEDS: Aspirin Enteric Coated 81 MG Tablet PO SCH (08:14)
[2019-10-09] MEDS: *HR* Enoxaparin 30 MG/0.3 ML SYRINGE SQ SCH (06:54)
[2019-10-09] MEDS: Aspirin Enteric Coated 81 MG Tablet PO SCH (08:13)
[2019-10-09] MEDS: Budesonide/Formoterol 160/4.5 1 PUFF INH IH SCH ×2 (09:57→21:08)
[2019-10-09] MEDS: levoFLOXacin 750 MG/150 ML 750 MG/150 ML BAG IVPB SCH (10:26)
[2019-10-09] MEDS ORDERED: levoFLOXacin 750 MG TABLET PO SCH (10:30)
[2019-10-10 06:45] VITALS: BP 125/66
[2019-10-10] MEDS: *HR* Enoxaparin 30 MG/0.3 ML SYRINGE SQ SCH (06:48)
[2019-10-10] MEDS: Aspirin Enteric Coated 81 MG Tablet PO SCH (08:10)
[2019-10-10] MEDS: Budesonide/Formoterol 160/4.5 1 PUFF INH IH SCH (10:40)
== END 2019-10-10 15:26 | DRG 194 ==
LOC: EMEROOGRE 06:47 → INPGRE 12:38
PROVIDERS: ADMIT Family Medicine; ATTEND Family Medicine